=== PATIENT | male | born 1950 | race Caucasian/White ===

== ENCOUNTER 2018-10-25 01:20 | Emergency (ER) | payer OTHER ==
[2018-10-25 01:36] VITALS: PULSE 56; TEMP 98; BMI 40.2
[2018-10-25 02:45] LABS: EPI CELLS 0.3 /HPF (0-5/HPF); HYALINE CASTS 3 /lpf (0-8); URINE APPEARANCE CLEAR; URINE BACTERIA 0.5 /hpf (NEGATIVE); URINE BILIRUBIN NEGATIVE (NEGATIVE); URINE COLOR YELLOW; URINE GLUCOSE (UA) NEGATIVE (NEGATIVE); URINE KETONE NEGATIVE (NEGATIVE); URINE LEUK ESTERASE NEGATIVE (NEGATIVE); URINE NITRITE NEGATIVE (NEGATIVE); URINE PROTEIN NEGATIVE (NEGATIVE); URINE RBC 130 /hpf (0-4); URINE WBC 1 /hpf (0-5)
[2018-10-25 03:05] LABS: BASO % 0.2 % (0-2.0); EOS % 0.5 % (0-4.5); HEMATOCRIT 43.3 % (35.4-49); HEMOGLOBIN 14.5 GM/dL (11.7-16.9); MCH 29.1 pg (25.7-33.7); MCHC 33.5 g/dl (32.0-35.9); MEAN CELL VOLUME 86.8 fl (80-96); MEAN PLT VOLUME 9.2 fl (7.5-11.1); MONO % 3.6 % (3.8-10.2); NEUT % 87.7 % (42.8-82.8); PLATELET COUNT 270 K/MM3 (134-434); RBC 4.99 M/mm3 (4.00-5.60); RDW 14.6 % (11.9-15.9); WHITE BLOOD COUNT 10.1 K/mm3 (4.0-10.0)
[2018-10-25 03:18] LABS: ALBUMIN 3.7 g/dl (3.4-5.0); BILIRUBIN,TOTAL 0.4 mg/dL (0.2-1); BLOOD UREA NITROGEN 21.1 mg/dL (7-18); CALCIUM 8.7 mg/dL (8.5-10.1); CREATININE 1.1 mg/dL (0.55-1.3); POTASSIUM 3.6 mmol/L (3.5-5.1); TOT PROT 7.2 g/dl (6.4-8.2)
[2018-10-25 03:28] VITALS: BP 133/81
--- NOTE | 2018-10-25 03:49 | PDOC ---
Attending Attestation - Resident Resident Name: Iban No - ED Attending Attestation I have performed the following: I have examined & evaluated the patient, The case was reviewed & discussed with the resident, I agree w/resident's findings & plan, Exceptions are as noted - HPI HPI: 10/25/18 03:45 67M denies PMH but has not been evaluated by a physician in decades here with sharp, R sided flank pain, colicky, radiating to groin. No f/c, n/v, cp, sob - Physicial Exam PE: 10/25/18 03:46 NAD, AOx3 Abd soft, nt, nd, no guarding, no rebound Rash slightly to the right of midline, blanching, macular +CVAT on R - Medical Decision Making 10/25/18 03:47 R sided flank pain, colicky, consider nephrolithiasis, less likely gallbladder, liver, appy analgesia, labs, ua f/u spiral ct re-eval dispo per clinical course
--- NOTE | 2018-10-25 03:58 | PDOC ---
History of Present Illness - General Chief Complaint: Back Pain Stated Complaint: PAIN History Source: Patient Exam Limitations: No Limitations - History of Present Illness Initial Comments: 10/25/18 03:53 67 yo male no known medical hx (has not seen a doctor in years) presents to the ED with sudden onset right flank pain this afternoon. Denies trauma, similar pain in the past, N/V/F/C, pain/buring/blood on urination 5 mm mid ureter mild hydro stone Past History - Past Medical History Allergies/Adverse Reactions: Allergies Allergy/AdvReac Type Severity Reaction Status Date / Time No Known Allergies Allergy Verified 10/25/18 01:33 Home Medications: Ambulatory Orders Doxylamine Succinate [Unisom Sleep Aid] 25 mg PO HS 10/25/18 Tamsulosin HCl [Flomax -] 0.4 mg PO DAILY #7 capsule 10/25/18 CVA: No COPD: No - Immunization History Immunization Up to Date: No - Suicide/Smoking/Psychosocial Hx Smoking History: Never smoked Information on smoking cessation initiated: No Hx Alcohol Use: No Drug/Substance Use Hx: No *Physical Exam - Vital Signs Last Vital Signs Temp Pulse Resp BP Pulse Ox 98.0 F 56 L 20 133/81 100 10/25/18 01:28 10/25/18 01:28 10/25/18 01:28 10/25/18 03:28 10/25/18 01:28 ED Treatment Course - LABORATORY CBC & Chemistry Diagram: 10/25/18 02:30 10/25/18 02:30 - ADDITIONAL ORDERS Additional order review: Laboratory Results 10/25/18 10/25/18 02:30 02:30 Sodium 142 Potassium 3.6 Chloride 111 H Carbon Dioxide 24 Anion Gap 8 BUN 21.1 H Creatinine 1.1 Est GFR (CKD-EPI)AfAm 79.52 Est GFR (CKD-EPI)NonAf 68.61 Random Glucose 134 H Calcium 8.7 Total Bilirubin 0.4 AST 25 ALT 26 Alkaline Phosphatase 75 Total Protein 7.2 Albumin 3.7 Urine Color Yellow Urine Appearance Clear Urine pH 6.0 Ur Specific [place] 1.022 Urine Protein Negative Urine Glucose (UA) Negative Urine Ketones Negative Urine Blood 3+ H Urine Nitrite Negative Urine Bilirubin Negative Urine Urobilinogen 1.0 Ur Leukocyte Esterase Negative Urine WBC (Auto) 1 Urine RBC (Auto) 130 Urine Casts (Auto) 3 U Epithel Cells (Auto) 0.3 Urine Bacteria (Auto) 0.5 10/25/18 02:30 RBC 4.99 MCV 86.8 MCHC 33.5 RDW 14.6 MPV 9.2 Neutrophils % 87.7 H Lymphocytes % 8.0 Monocytes % 3.6 L Eosinophils % 0.5 Basophils % 0.2 - RADIOLOGY Radiology Studies Ordered: Category Date Time Status SPIRAL- RENAL-STONE CT [CT] Stat CT Scan 10/25/18 02:26 Taken *DC/Admit/Observation/Transfer Diagnosis at time of Disposition: Urinary tract stone - Discharge Dispostion Disposition: HOME Condition at time of disposition: Stable Decision to Admit order: No - Referrals Referrals: Michael Bradley MD [Staff Physician] - - Patient Instructions Printed Discharge Instructions: Kidney Stones -- Adult Additional Instructions: Please see your Primary Doctor and make an appointment with the Urologist referred to you as soon as possible. Drink a lot of water and use over the counter NSAIDS such as Tylenol, Motrin and Alieve for pain control. Use the medication sent to your pharmacy as directed. Return to the ER for new or concerning symptoms including but not limited to: fevers, inability to eat or drink, pain, inability to urinate, blood in your urine. Thank you - Post Discharge Activity
[2018-10-25 05:14] LABS: URINE CRYSTALS NONE SEEN /hpf
== END 2018-10-25 04:12 | disposition home or self-care (01) ==
LOC: JER 01:20
DX: N20.9 Urinary calculus, unspecified (principal)
CPT/HCPCS: 36415; 74176-TC; 80053; 81003; 85025; 87086; 99283-25

== ENCOUNTER 2019-10-10 20:56 | Inpatient (IN) | payer OTHER ==
--- NOTE | 2019-10-10 21:38 | PDOC ---
History of Present Illness - General Chief Complaint: Syncope/Near Syncope Stated Complaint: SYNCOPE Time Seen by Provider: 10/10/19 21:11 History Source: Patient Exam Limitations: No Limitations - History of Present Illness Initial Comments: 10/10/19 22:11 HPI: This is a 68 y/o male with BPH who has not been to a doctor in years presenting to the ED due to a pre-syncopal episode at home. Per the patient, he got up to go to the window and began shaking, sweating, and then doesn't remember anything else. He called out to his who found him crouching on the floor. He denies LOC. Earlier in the evening he had an episode of urinary incontinence in bed, which has never happened before. He also admits to some dysuria, but denies hematuria. Denies chills/fever, abdominal pain, cough, chest pain, shortness of breath. ROS: GENERAL/CONSTITUTIONAL: No fever/chills. Yes weakness. HEAD, EYES, EARS, NOSE AND THROAT: No change in vision. No ear pain or discharge. No sore throat. CARDIOVASCULAR: No chest pain or shortness of breath. RESPIRATORY: No cough, wheezing GASTROINTESTINAL: No nausea, vomiting, mild diarrhea GENITOURINARY:Yes dysuria, increased frequency, 1 episode of incontinence today. Denies hematuria. MUSCULOSKELETAL: No neck or back pain. SKIN: Erythemetous rash on chest NEUROLOGIC: No headache, vertigo, loss of consciousness, or change in strength/sensation. PMH: BPH PSx: Denied Social Hx: Denied etoh and tobacco Meds: Denied Allergies: KNDA PE: GENERAL: Awake, alert, and fully oriented, in no acute distress. Patient laying in bed with in room, conversational. HEAD: Normocephalic, small amount of dried blood above right eye. No tenderness to palpation. EYES: PERRL, EOMI NECK: Normal ROM, supple, no lymphadenopathy, JVD, or masses LUNGS: Breath sounds equal, clear to auscultation bilaterally. No wheezes, and no crackles HEART: Regular rate and rhythm, normal S1 and S2, no murmurs, rubs or gallops ABDOMEN: Soft, normoactive bowel sounds. No guarding, no rebound. No masses. Mild suprapubic tenderness. EXTREMITIES: Normal range of motion, no edema. NEUROLOGICAL: Cranial nerves II through XII grossly intact. Normal speech, normal gait SKIN: Warm, Dry, normal turgor, no rashes or lesions noted. 10/10/19 22:14 MDM: This is a 68 y/o male with BPH who has not been to a doctor in years presenting to the ED due to a pre-syncopal episode at home. Per the patient, he got up to go to the window and began shaking, sweating, and then doesn't remember anything else. - Patient is unable to give accurate story of what happened, will CT head - Febrile at 102.1, will give 1000mg acetaminophen Cystitis vs pyelonephritis vs sepsis doubt cardiac etiology due to fever and no chest pain, sob - No CVA tenderness, but some suprapubic tenderness - UA, CBC, CMP, EKG, Lactic acid CBC WBC 29.9 K/mm3 (4.0-10.0) H 10/10/19 22:45 RBC 5.44 M/mm3 (4.00-5.60) 10/10/19 22:45 Hgb 15.8 GM/dL (11.7-16.9) 10/10/19 22:45 Hct 47.9 % (35.4-49) 10/10/19 22:45 MCV 88.1 fl (80-96) 10/10/19 22:45 MCH 29.0 pg (25.7-33.7) 10/10/19 22:45 MCHC 32.9 g/dl (32.0-35.9) 10/10/19 22:45 RDW 14.9 % (11.9-15.9) 10/10/19 22:45 Plt Count 258 K/MM3 (134-434) 10/10/19 22:45 MPV 8.9 fl (7.5-11.1) 10/10/19 22:45 Absolute Neuts (auto) 26.5 K/mm3 (1.5-8.0) H 10/10/19 22:45 Total Counted 100 10/10/19 22:45 Neutrophils % 88.4 % (42.8-82.8) H 10/10/19 22:45 Neutrophils % (Manual) 89.0 % (42.8-82.8) H 10/10/19 22:45 Band Neutrophils % 3.0 % 10/10/19 22:45 Lymphocytes % 3.5 % (8-40) L D 10/10/19 22:45 Lymphocytes % (Manual) 5.0 % (8-40) L 10/10/19 22:45 Monocytes % 8.0 % (3.8-10.2) D 10/10/19 22:45 Monocytes % (Manual) 3 % (3.8-10.2) L 10/10/19 22:45 Eosinophils % 0.0 % (0-4.5) D 10/10/19 22:45 Basophils % 0.1 % (0-2.0) 10/10/19 22:45 Nucleated RBC % 0 % (0-0) 10/10/19 22:45 Platelet Estimate Adequate 10/10/19 22:45 Platelet Comment No clumping noted 10/10/19 22:45 Leukocytosis with left shift No anemia CMP Sodium 137 mmol/L (136-145) 10/10/19 22:45 Potassium 3.8 mmol/L (3.5-5.1) 10/10/19 22:45 Chloride 104 mmol/L (98-107) 10/10/19 22:45 Carbon Dioxide 26 mmol/L (21-32) 10/10/19 22:45 Anion Gap 7 MMOL/L (8-16) L 10/10/19 22:45 BUN 21.8 mg/dL (7-18) H 10/10/19 22:45 Creatinine 1.7 mg/dL (0.55-1.3) H 10/10/19 22:45 Est GFR (CKD-EPI)AfAm 46.65 10/10/19 22:45 Est GFR (CKD-EPI)NonAf 40.25 10/10/19 22:45 Random Glucose 109 mg/dL (74-106) H 10/10/19 22:45 Lactic Acid 2.3 mmol/L (0.4-2.0) H* 10/10/19 22:45 Calcium 8.7 mg/dL (8.5-10.1) 10/10/19 22:45 Total Bilirubin 2.4 mg/dL (0.2-1) H 10/10/19 22:45 AST 32 U/L (15-37) 10/10/19 22:45 ALT 36 U/L (13-61) 10/10/19 22:45 Alkaline Phosphatase 95 U/L (45-117) 10/10/19 22:45 Total Protein 7.9 g/dl (6.4-8.2) 10/10/19 22:45 Albumin 3.6 g/dl (3.4-5.0) 10/10/19 22:45 Lactic elevated at 2.3 - 2L LR - UTI suspected as source 1g ceftriaxone - UA with >10,000 bacteria 10/11/19 01:07 - Microblogged symphony - Patient will be admitted to Dr. Muniz's service Past History - Medical History Allergies/Adverse Reactions: Allergies Allergy/AdvReac Type Severity Reaction Status Date / Time No Known Allergies Allergy Verified 10/10/19 21:20 Home Medications: Ambulatory Orders Doxylamine Succinate [Unisom Sleep Aid] 25 mg PO HS 10/25/18 Tamsulosin HCl [Flomax -] 0.4 mg PO DAILY #7 capsule 10/25/18 CVA: No COPD: No - Immunization History Immunization Up to Date: No - Psycho-Social/Smoking History Smoking History: Never smoked Have you smoked in the past 12 months: No Information on smoking cessation initiated: No - Substance Abuse Hx (Audit-C & DAST Scrn) How often the patient has a drink containing alcohol: Never Score: In Men: 4 or > Positive; In Women: 3 or > Positive: 0 Screen Result (Pos requires Nsg. Audit-10AR): Negative In the last yr the pt used illegal drug/Rx for NonMed reason: No Score: Yes response is considered Positive: 0 Screen Result (Positive result requires Nsg. DAST-10): Negative *Physical Exam - Vital Signs Last Vital Signs Temp Pulse Resp BP Pulse Ox 102.1 F H 91 H 20 108/62 96 10/10/19 21:20 10/10/19 21:20 10/10/19 21:20 10/10/19 21:20 10/10/19 21:20 Heart Score/ECG Review - History History: Slightly suspicious - Electrocardiogram EKG: Normal - Age Age: >/= 65 - Risk Factors Based on the list above the patient has:: No risk factors known - ECG Intrepretation Comment:: 10/11/19 04:29 EKG with no signs of ischemia, ST elevations. Sinus rhythm. Vent rate 82 bpm, NC interval 144ms, QRS duration 90ms. QT/QTc 358/418ms. ED Treatment Course - LABORATORY CBC & Chemistry Diagram: 10/10/19 22:45 10/10/19 22:45 Discharge - Discharge Information Problems reviewed: Yes Clinical Impression/Diagnosis: Sepsis Qualifiers: Sepsis type: sepsis due to unspecified organism Sepsis acute organ dysfunction status: unspecified Qualified Code(s): A41.9 - Sepsis, unspecified organism Condition: Guarded - Admission Yes - Follow up/Referral - Patient Discharge Instructions - Post Discharge Activity
[2019-10-10] MEDS ORDERED: ACETAMINOPHEN 325 MG TABLET (FP) PO ONE (22:06)
[2019-10-10] MEDS ORDERED: LACTATED RINGERS SOLUTION 1000 ML INFUS.BAG IV ONE ×2 (22:13→23:35)
--- NOTE | 2019-10-10 23:00 | PDOC ---
Documentation entered by Darling Moreno SCRIBE, acting as scribe for Monica Gardiner MD. Monica Gardiner MD: This documentation has been prepared by the Josh hebert Xhesika, SCRIBE, under my direction and personally reviewed by me in its entirety. I confirm that the documentation accurately reflects all work, treatment, procedures, and medical decision making performed by me. Attending Attestation - Resident Resident Name: NikkieAnette - ED Attending Attestation I have performed the following: I have examined & evaluated the patient, The case was reviewed & discussed with the resident, I agree w/resident's findings & plan, Exceptions are as noted - HPI HPI: 10/10/19 22:47 68 y/o male with a PMH of BPH who presents to the ED s/p episode of AMS at home. Pt states he got up to go to the window, began shaking and sweating. Pt states he does not recall what happened after that. Per , the patient yelled for her and when she went to check on him she found him on the floor on his knees, holding onto a dresser. he denies coughing or chest pain. does state he has had dysuria for a few days. occasional diarreha. otherwise no complaints. does not have a primary doctor. no headache. unsure if he hit his head during fall. denies focal weakness or any other complaints. Allergies: NKDA 10/10/19 22:53 - Physicial Exam PE: 10/10/19 22:55 awake alert right supraorbital rim with small laceration no active bleeding. no bony step off. EOMI, facies symmetric. lungs clear bilat heart rrr no mrg abd soft nt nd no midline spinal tenderness. no cva tenderness. GCS 15. nuero 5/5 all four ext. skin warm and dry . sensation intact. speech clear. - Medical Decision Making 10/10/19 22:56 68 yo M no known pmhx except bph, hereh with episode of AMS, possible syncope unwitnessed fall, rigors and fever. recent urinary sxs. differential syncope, sepsis, fever dysthymia cardiac event. apparent head trauma, head ct r/o ich, labs ekg trop cxr. Heart Score/ECG Review #1 General ECG Interpretation: Sinus Rhythm, Normal Rate (82), Normal Intervals, No acute ischemic changes Discharge - Discharge Information Problems reviewed: Yes Clinical Impression/Diagnosis: Sepsis Qualifiers: Sepsis type: sepsis due to unspecified organism Sepsis acute organ dysfunction status: unspecified Qualified Code(s): A41.9 - Sepsis, unspecified organism Condition: Good Disposition: HOME - Follow up/Referral - Patient Discharge Instructions - Post Discharge Activity
[2019-10-10 23:01] LABS: BASO % 0.1 % (0-2.0); HEMATOCRIT 47.9 % (35.4-49); HEMOGLOBIN 15.8 GM/dL (11.7-16.9); LYMPH % 3.5 % (8-40); MCHC 32.9 g/dl (32.0-35.9); MEAN CELL VOLUME 88.1 fl (80-96); MEAN PLT VOLUME 8.9 fl (7.5-11.1); NEUT % 88.4 % (42.8-82.8); PLATELET COUNT 258 K/MM3 (134-434); RBC 5.44 M/mm3 (4.00-5.60); RDW 14.9 % (11.9-15.9); WHITE BLOOD COUNT 29.9 K/mm3 (4.0-10.0)
[2019-10-10 23:36] LABS: ALBUMIN 3.6 g/dl (3.4-5.0); BILIRUBIN,TOTAL 2.4 mg/dL (0.2-1); BLOOD UREA NITROGEN 21.8 mg/dL (7-18); CALCIUM 8.7 mg/dL (8.5-10.1); CREATININE 1.7 mg/dL (0.55-1.3); POTASSIUM 3.8 mmol/L (3.5-5.1); TOT PROT 7.9 g/dl (6.4-8.2)
[2019-10-10 23:40] LABS: PLATELET ESTIMATE ADEQUATE
[2019-10-11] MEDS ORDERED: ACETAMINOPHEN 325 MG TABLET (FP) ONE (00:29)
[2019-10-11] MEDS ORDERED: CEFTRIAXONE 1,000 MG in DEXTROSE 5%-WATER - 50 ML IVPB ONE (01:02)
--- NOTE | 2019-10-11 01:32 | PN ---
Teaching Attending Note Name of Resident: Sera Good ATTENDING PHYSICIAN STATEMENT I saw and evaluated the patient. I reviewed the resident's note and discussed the case with the resident. I agree with the resident's findings and plan as documented. SUBJECTIVE: Patient is a 68 year old man with a PMH of Right kidney stone (mild hydronep hrosis) and BPH who has not been to a doctor in years presenting to the ER due to a pre-syncopal episode at home. Per the patient, he got up to go to the window and began shaking, sweating, and then doesn't remember anything else. He called out to his who found him crouching on the floor. He denies LOC. Earlier in the evening he had an episode of urinary incontinence in bed, which has never happened before. He also admits to some dysuria, but denies hematuria. Patient denies chest pain, shortness of breath, abdominal pain, headache, palpitations, nausea, vomiting, diarrhea, constipation, frequency, urgency, melena, hematochezia or hematuria. Denies alcohol, tobacco or illicit drug use. No sick contacts or recent travels. Has family history of alcoholism. OBJECTIVE: Alert Vital Signs Period Temp Pulse Resp BP Sys/Castro Pulse Ox Last 24 Hr 102.1 F 91 20 108/62 96 HEENT: No Jaundice, eye redness or discharge, PERRLA, EOMI. Normocephalic, atraumatic. External ears are normal and hearing is grossly intact. No nasal discharge. Neck: Supple, nontender. No palpable adenopathy or thyromegaly. No JVD Chest: Good effort. Clear to auscultation and percussion. Heart: Regular. No S3, rub or murmur Abdomen: Not distended, soft, suprapubic tenderness and no HSM. No rebound or guarding. Normal bowel sounds. Ext: Peripheral pulses intact. No leg edema. Skin: Warm and dry. No petechiae, rash or ecchymosis. Neuro: Alert. Oriented x3. CN 2-12 grossly intact. Sensation grossly intact in all four extremities and DTR are symmetric. Psych: Appropriate mood and affect. Good insight. Home Medications Medication Instructions Recorded Doxylamine Succinate [Unisom Sleep 25 mg PO HS 10/25/18 Aid] Tamsulosin HCl [Flomax -] 0.4 mg PO DAILY #7 capsule 10/25/18 Abnormal Lab Results 10/10/19 10/10/19 10/10/19 22:45 22:45 22:45 WBC 29.9 H Absolute Neuts (auto) 26.5 H Neutrophils % 88.4 H Neutrophils % (Manual) 89.0 H Lymphocytes % 3.5 L D Lymphocytes % (Manual) 5.0 L Monocytes % (Manual) 3 L Anion Gap 7 L BUN 21.8 H Creatinine 1.7 H Random Glucose 109 H Lactic Acid 2.3 H* Total Bilirubin 2.4 H Current Medications Generic Name Dose Route Start Last Admin Trade Name Freq PRN Reason Stop Dose Admin Heparin Sodium (Porcine) 5,000 unit 10/11/19 06:00 Heparin - SQ TID AGUSTIN Piperacillin Sod/Tazobactam 100 mls @ 200 mls/hr 10/11/19 04:40 Sod 4.5 gm/ Dextrose IVPB 10/11/19 05:09 ONCE ONE Protocol Lactated Ringer's 1,000 ml in 1,000 mls @ 125 mls/hr 10/11/19 04:30 Lactated Ringers Solution IV 10/12/19 12:29 ASDIR AGUSTIN Pneumococcal 13-Valent Conj Vacc 0.5 ml 10/11/19 10:00 Prevnar 13 Syringe - IM 10/11/19 10:01 .ONCE ONE ASSESSMENT AND PLAN: 1. Severe sepsis due to UTI - Presyncopal symptoms likely represent toxic metabolic encephalopathy due to sepsis. Got IV Ceftriaxone in the ER and will treat with IV NS according to the sepsis protocol and trend lactic acid. Because of the severity of his symptoms will treat with IV Zosyn pending urine and blood culture results. CXR shows cardiomegaly with no evidence of acute lung disease. No evidence of acute intracranial pathology on noncontrast head CT scan. Elevated bilirubin likely due to sepsis - will monitor. Viral testing for COVID- 19 ordered and patient placed on airborne, droplet and contact isolation. EKG shows NSR at 82/minute and QTc 418, T wave inversion in III, aVF, V1 with no significant ST changes. No old EKG available for comparison. Initial troponin is negative. Will continue comprehensive care for all of patients comorbid conditions including Flomax for BPH. 2. TRISTON May signal ATN due to sepsis. Will get CPK, kidney sonogram, hydrate with IV NS, monitor urine output and consult Nephrology. Avoid nephrotoxic agents such as NSAIDS, aminoglycosides, contrast dyes and certain Alternative medicine products. 3. DVT prophylaxis - Heparin 5000u sq tid. 4. Advance directives - Full code
[2019-10-11] MEDS ORDERED: CEFTRIAXONE 1 GM/50 ML BAG ONE (01:50)
[2019-10-11 02:04] LABS: EPI CELLS 3 /uL (0-25.1); HYALINE CASTS 148 /uL (0-3.1); URINE APPEARANCE CLOUDY; URINE BILIRUBIN 2+ (NEGATIVE); URINE COLOR ORANGE; URINE GLUCOSE (UA) NEGATIVE (NEGATIVE); URINE KETONE NEGATIVE (NEGATIVE); URINE LEUK ESTERASE 2+ (NEGATIVE); URINE NITRITE POSITIVE (NEGATIVE); URINE PROTEIN 1+ (NEGATIVE); URINE WBC 952 /uL (0-25.8)
--- NOTE | 2019-10-11 02:47 | HP ---
CHIEF COMPLAINT: weakness, fall PCP: none HISTORY OF PRESENT ILLNESS: Pt is a 68 y/o male with BPH (on tamsulosin years ago) and hx of nephrolithiasis with hydronephrosis who presents after syncope. Pt reports watching TV in his bedroom around 10pm and felt weak to get out of bed. When he got up, he walked to the window in the living room then felt like he was shaking, and the next thing he recalls is being on the floor yelling for his . He does not recall how he landed on the floor or if he hit his head. EMS was able to help him in a chair before transport. He reports an episode of urinary incontinence in bed just prior, which has never happened before. He denies fever, chills, nausea, vomiting. He reports intermittent diarrhea, but he has not had it in the last day. ER course was notable for: (1) UA -UA +nitrite, +1 blood, +2 leuk esterase, 952 WBC, >10,000 bacteria (2) CT head -no acute pathology (3) 2L IVF Recent Travel: none PAST MEDICAL HISTORY: BPH and nephrolithiasis PAST SURGICAL HISTORY: none Social History: Smoking: denies Alcohol: denies Drugs: denies lives at home with Family History: mother and father- alcoholism Allergies No Known Allergies Allergy (Verified 10/10/19 21:20) HOME MEDICATIONS: none REVIEW OF SYSTEMS see HPI PHYSICAL EXAMINATION Vital Signs - 24 hr 10/10/19 10/11/19 21:20 01:46 Temperature 102.1 F H 102.8 F H Pulse Rate 91 H Pulse Rate [ 79 Apical] Respiratory 20 19 Rate Blood Pressure 108/62 Blood Pressure 135/77 [Left Arm] O2 Sat by Pulse 96 Oximetry (%) GENERAL: Awake, alert, and fully oriented, in no acute distress. HEAD: Normal with no signs of trauma. EYES: Pupils equal, round and reactive to light, extraocular movements intact, conjunctiva clear. EARS, NOSE, THROAT: Ears normal, nares patent, moist mucous membranes. NECK: Normal range of motion. LUNGS: Clear to auscultation bilaterally. No wheezes, and no crackles. HEART: Regular rate and rhythm, no murmur appreciated. ABDOMEN: Soft, suprapubic tenderness to palpation, not distended, normoactive bowel sounds. BACK: No CVA tenderness. UPPER EXTREMITIES: Warm, well-perfused. No peripheral edema. LOWER EXTREMITIES: Warm, well-perfused. No peripheral edema. NEUROLOGICAL: Cranial nerves II-XII intact. Normal speech. PSYCHIATRIC: Cooperative. Good eye contact. Appropriate mood and affect. SKIN: Warm, dry, normal turgor. Laboratory Results - last 24 hr 10/10/19 10/10/19 10/10/19 22:45 22:45 22:45 WBC 29.9 H RBC 5.44 Hgb 15.8 Hct 47.9 MCV 88.1 MCH 29.0 MCHC 32.9 RDW 14.9 Plt Count 258 MPV 8.9 Absolute Neuts (auto) 26.5 H Total Counted 100 Neutrophils % 88.4 H Neutrophils % (Manual) 89.0 H Band Neutrophils % 3.0 Lymphocytes % 3.5 L D Lymphocytes % (Manual) 5.0 L Monocytes % 8.0 D Monocytes % (Manual) 3 L Eosinophils % 0.0 D Basophils % 0.1 Nucleated RBC % 0 Platelet Estimate Adequate Platelet Comment No clumping noted Sodium 137 Potassium 3.8 Chloride 104 Carbon Dioxide 26 Anion Gap 7 L BUN 21.8 H Creatinine 1.7 H Est GFR (CKD-EPI)AfAm 46.65 Est GFR (CKD-EPI)NonAf 40.25 Random Glucose 109 H Lactic Acid 2.3 H* Calcium 8.7 Total Bilirubin 2.4 H AST 32 ALT 36 Alkaline Phosphatase 95 Total Protein 7.9 Albumin 3.6 Urine Color Urine Appearance Urine pH Ur Specific [place] Urine Protein Urine Glucose (UA) Urine Ketones Urine Blood Urine Nitrite Urine Bilirubin Urine Urobilinogen Ur Leukocyte Esterase Urine WBC (Auto) Urine Casts (Auto) U Epithel Cells (Auto) Urine Bacteria (Auto) 10/11/19 00:50 WBC RBC Hgb Hct MCV MCH MCHC RDW Plt Count MPV Absolute Neuts (auto) Total Counted Neutrophils % Neutrophils % (Manual) Band Neutrophils % Lymphocytes % Lymphocytes % (Manual) Monocytes % Monocytes % (Manual) Eosinophils % Basophils % Nucleated RBC % Platelet Estimate Platelet Comment Sodium Potassium Chloride Carbon Dioxide Anion Gap BUN Creatinine Est GFR (CKD-EPI)AfAm Est GFR (CKD-EPI)NonAf Random Glucose Lactic Acid Calcium Total Bilirubin AST ALT Alkaline Phosphatase Total Protein Albumin Urine Color [place] Urine Appearance Cloudy Urine pH 5.0 Ur Specific [place] 1.022 Urine Protein 1+ H Urine Glucose (UA) Negative Urine Ketones Negative Urine Blood 1+ H Urine Nitrite Positive H Urine Bilirubin 2+ H Urine Urobilinogen 1.0 Ur Leukocyte Esterase 2+ H Urine WBC (Auto) 952 Urine Casts (Auto) 148 U Epithel Cells (Auto) 3 Urine Bacteria (Auto) >10,000 ASSESSMENT/PLAN: Pt is a 68 y/o male with BPH (on tamsulosin years ago) and hx of nephrolithiasis with hydronephrosis who presents after syncope. Pt was febrile and hypotensive with leukocytosis and positive UA. He is admitted for sepsis 2/2 acute cystitis. #sepsis 2/2 acute cystitis -leukocytosis 29.9 -lactic acidosis 2.3-->2.3 -UA +nitrite, +1 blood, +2 leuk esterase, 952 WBC, >10,000 bacteria -urine cx pending -given ceftriaxone in ED -start Zosyn 4.5g Q6H to include pseudomonas coverage -continue LR @125mL/hr for 2 bags, and reassess fluid status -trend lactic acid -blood cx pending -ID consult #syncope -most likely 2/2 sepsis, but cannot r/o cardiac causes, especially since pt does not see a physician regularly -CT head shows encephalomalacia in left frontal lobe, most likely old infarct; old lacunar infarcts in right basal ganglia; patchy low-attenuation in white matter possibly from microvascular ischemic changes, but MRI should be considered -consider echo -consider cardiology consult -lipid panel -A1C -consider TSH for possible arrhythmia #TRISTON -likely pre-renal from sepsis, hx of nephrolithiasis -Cr 1.7 -continue IVF -renal U/S -avoid nephrotoxic agents -nephrology consult #hyperbilirubinemia -likely from sepsis -tbili 2.4 -trend labs, consider liver U/S if labs do not improve DVT Ppx heparin 5,000 TID FEN LR 125mL/hr monitor Cr regular diet dispo tele FULL CODE Visit type - Medication Review Med list reviewed for High Risk Meds patients 65 and older: Yes - Emergency Visit Emergency Visit: Yes ED Registration Date: 10/11/19 Care time: The patient presented to the Emergency Department on the above date and was hospitalized for further evaluation of their emergent condition. - New Patient This patient is new to me today: Yes Date on this admission: 10/11/19 - Critical Care Critical Care patient: No ATTENDING PHYSICIAN STATEMENT I saw and evaluated the patient. I reviewed the resident's note and discussed the case with the resident. I agree with the resident's findings and plan as documented. SUBJECTIVE: OBJECTIVE: ASSESSMENT AND PLAN:
[2019-10-11 02:50] LABS: URINE RBC 5 /uL (0-23.9)
[2019-10-11 04:40] VITALS: BMI 29.0
[2019-10-11] MEDS ORDERED: PIPERACILLIN/TAZOB 4.5 GM 4.5 GM in DEXTROSE 5%-WATER 100 ML IVPB ONE (04:40)
[2019-10-11] MEDS ORDERED: PIPERACILLIN/TAZOBACTAM 4.5 GM VIAL IVPB ONE (05:09)
[2019-10-11] MEDS ORDERED: DEXTROSE 5%-WATER 100 ML IVPB ONE (05:09)
[2019-10-11] MEDS: LACTATED RINGERS SOLUTION 1,000 ML/1,000 ML INFUS.BAG IV SCH ×2 (05:36→16:02)
[2019-10-11] MEDS: HEPARIN NA (PORCINE) 5,000 UNITS/ML 1ML VIAL SQ SCH ×3 (05:37→21:58)
[2019-10-11 07:26] LABS: BASO % 0.1 % (0-2.0); HEMATOCRIT 43.8 % (35.4-49); HEMOGLOBIN 14.3 GM/dL (11.7-16.9); LYMPH % 5.4 % (8-40); MCH 29.1 pg (25.7-33.7); MCHC 32.8 g/dl (32.0-35.9); MEAN CELL VOLUME 88.9 fl (80-96); MEAN PLT VOLUME 9.2 fl (7.5-11.1); MONO % 5.2 % (3.8-10.2); NEUT % 89.3 % (42.8-82.8); PLATELET COUNT 205 K/MM3 (134-434); RBC 4.92 M/mm3 (4.00-5.60); WHITE BLOOD COUNT 24.2 K/mm3 (4.0-10.0)
--- NOTE | 2019-10-11 07:45 | PN ---
Progress Note, Physician Chief Complaint: Seen and examined in bed. febrile to 102.3. States he feels weak. BCx/Ucx pending. On abx. COVID pending but low suspicion History of Present Illness: Pt is a 68 y/o male with BPH (on tamsulosin years ago) and hx of nephrolithiasis with hydronephrosis who presents after syncope. Pt was febrile and hypotensive with leukocytosis and positive UA. He is admitted for sepsis 2/2 acute cystitis. - Current Medication List Current Medications: Active Medications Heparin Sodium (Porcine) (Heparin -) 5,000 unit SQ TID [facility] Last Admin: 10/11/19 05:37 Dose: 5,000 unit Documented by: Lactated Ringer's (Lactated Ringers Solution) 1,000 ml in 1,000 mls @ 125 mls/hr IV ASDIR [facility] Stop: 10/12/19 12:29 Last Admin: 10/11/19 05:36 Dose: 125 mls/hr Documented by: Pneumococcal 13-Valent Conj Vacc (Prevnar 13 Syringe -) 0.5 ml IM .ONCE ONE Stop: 10/11/19 10:01 - Objective Vital Signs: Vital Signs Temperature 100.7 F H 10/11/19 03:20 Pulse Rate 78 10/11/19 03:20 Respiratory Rate 19 10/11/19 03:20 Blood Pressure 130/78 10/11/19 03:20 O2 Sat by Pulse Oximetry (%) 98 10/11/19 03:20 Constitutional: Yes: Well Nourished, No Distress, Calm Eyes: Yes: WNL, Conjunctiva Clear, EOM Intact HENT: Yes: WNL, Atraumatic, Normocephalic Neck: Yes: WNL, Supple, Trachea Midline Cardiovascular: Yes: WNL, Regular Rate and Rhythm Respiratory: Yes: WNL, Regular, CTA Bilaterally Gastrointestinal: Yes: WNL, Normal Bowel Sounds ...Rectal Exam: Yes: Deferred Genitourinary: Yes: WNL Breast(s): Yes: WNL Musculoskeletal: Yes: WNL Extremities: Yes: WNL Edema: No Peripheral Pulses WNL: Yes Peripheral Pulses: Left Radial: 2+, Right Radial: 2+, Left Doralis Pedis: 2+, Right Dorsalis Pedis: 2+, Left Femoral: 2+, Right Femoral: 2+ Integumentary: Yes: WNL Neurological: Yes: WNL, Alert, Oriented ...Motor Strength: WNL Psychiatric: Yes: WNL, Alert, Oriented Labs: CBC, BMP 10/11/19 06:05 - ....Imaging Cat Scan: Report Reviewed (HCT chronic lacunar infarct) Ultrasound: Report Reviewed (Renal US: renal US unremarkable Carotid:small to moderate plaque RCA) Problem List - Problems (1) BPH (benign prostatic hyperplasia) Assessment/Plan: took flomax yaers ago now with UTI, c/o urinary frequency/dysurai at home will restart flomax and monitor Ucx Pending Code(s): N40.0 - BENIGN PROSTATIC HYPERPLASIA WITHOUT LOWER URINRY TRACT SYMP (2) Prophylactic measure Assessment/Plan: FEN Fluids: decreased PO intake, febrile. IVF @ 125cc/hr Electrolytes:monitor & replete as needed Nutrition: diabetic diet DVT moderate risk sq heparin Dispo Maintain as inpatient full code discharge planning Code(s): Z29.9 - ENCOUNTER FOR PROPHYLACTIC MEASURES, UNSPECIFIED (3) Suspected COVID-19 virus infection Assessment/Plan: COVID Suspicion low On RA strict airborne/droplet precautions until resulted Code(s): Z20.828 - CONTACT W AND EXPOSURE TO OTH VIRAL COMMUNICABLE DISEASES (4) Sepsis Assessment/Plan: +UTI, febrile, WBC 24, LA 2.3 CXR with no infiltrates started on zoysn IVF COVID pending ID to see trend wbc/LA Code(s): A41.9 - SEPSIS, UNSPECIFIED ORGANISM Qualifiers: Sepsis type: sepsis due to unspecified organism Sepsis acute organ d ysfunction status: unspecified Qualified Code(s): A41.9 - Sepsis, unspecified organism (5) Urinary tract stone Assessment/Plan: hs of neohroliathiaslsis Renal US without acute pathology Code(s): N20.9 - URINARY CALCULUS, UNSPECIFIED Qualifiers: Urinary calculus location: ureter Qualified Code(s): N20.1 - Calculus of ureter (6) Syncope and collapse Assessment/Plan: TTE pending Carotid dopplers noted cardiology consultation appreciated maintain on tele Code(s): R55 - SYNCOPE AND COLLAPSE (7) TRISTON (acute kidney injury) Assessment/Plan: Cr 1.7 on admission now 1.4 c/w IVF urine lytes pending avoid nephrotoxic agents abx for UTI nephrology to see c/w abx renal US unremarkable Code(s): N17.9 - ACUTE KIDNEY FAILURE, UNSPECIFIED (8) Leukocytosis Assessment/Plan: WBC 24, febrile UTI+ c/w abx trylenol prn, avoid NSAIDs given TRISTON continue to trend Code(s): D72.829 - ELEVATED WHITE BLOOD CELL COUNT, UNSPECIFIED (9) Hyperbilirubinemia Assessment/Plan: Tbil 2.4 most likely r/t sepsis/infection ast/alt nml if does not trend down will consult GI and get abd US Code(s): E80.6 - OTHER DISORDERS OF BILIRUBIN METABOLISM (10) Lactic acid acidosis Assessment/Plan: LA 2.3 IVF given c/t trend Code(s): E87.2 - ACIDOSIS (11) Carotid stenosis Assessment/Plan: syncopal episode with near collapse small to moderate plaque to RCA correlation with CTA when Cr normalizes Code(s): I65.29 - OCCLUSION AND STENOSIS OF UNSPECIFIED CAROTID ARTERY Visit type - Emergency Visit Emergency Visit: Yes ED Registration Date: 10/11/19 Care time: The patient presented to the Emergency Department on the above date and was hospitalized for further evaluation of their emergent condition. - New Patient This patient is new to me today: Yes Date on this admission: 10/11/19 - Critical Care Critical Care patient: No - Discharge Referral Referred to [facility] Med P.C[facility] No - Medication Review Med list reviewed for High Risk Meds patients 65 and older: Yes
[2019-10-11 07:56] LABS: ALBUMIN 3.3 g/dl (3.4-5.0); BILIRUBIN,TOTAL 2.4 mg/dL (0.2-1); BLOOD UREA NITROGEN 22.1 mg/dL (7-18); CALCIUM 8.6 mg/dL (8.5-10.1); CREATININE 1.4 mg/dL (0.55-1.3); MAGNESIUM 1.9 mg/dL (1.8-2.4); POTASSIUM 3.5 mmol/L (3.5-5.1); TOT PROT 7.2 g/dl (6.4-8.2)
[2019-10-11] MEDS ORDERED: POTASSIUM CHLORIDE TABS 20 MEQ TABLET.ER (FP) PO ONE (08:05)
--- NOTE | 2019-10-11 08:51 | CON.CARD ---
Consult Consult Specialty:: Cardiology - History of Present Illness History of Present Illness: Pt is a 68 y/o male with BPH (on tamsulosin years ago) and hx of nephrolithiasis with hydronephrosis who presents after syncope. Pt reports watching TV in his bedroom around 10pm and felt weak to get out of bed. When he got up, he walked to the window in the living room then felt like he was shaking, and the next thing he recalls is being on the floor yelling for his . He does not recall how he landed on the floor or if he hit his head. EMS was able to help him in a chair before transport. He reports an episode of urinary incontinence in bed just prior, which has never happened before. He denies fever, chills, nausea, vomiting. He reports intermittent diarrhea, but he has not had it in the last day. - History Source History Provided By: Patient, Medical Record - Alcohol/Substance Use Hx Alcohol Use: No - Smoking History Smoking history: Never smoked Have you smoked in the past 12 months: No Home Medications - Allergies Allergies/Adverse Reactions: Allergies Allergy/AdvReac Type Severity Reaction Status Date / Time No Known Allergies Allergy Verified 10/10/19 21:20 Review of Systems - Review of Systems Constitutional: reports: No Symptoms Eyes: reports: No Symptoms HENT: reports: No Symptoms Neck: reports: No Symptoms Cardiovascular: reports: No Symptoms Gastrointestinal: reports: No Symptoms Genitourinary: reports: No Symptoms Breasts: reports: No Symptoms Reported Musculoskeletal: reports: No Symptoms Integumentary: reports: No Symptoms Neurological: reports: Change in LOC, Syncope Endocrine: reports: No Symptoms Hematology/Lymphatic: reports: No Symptoms Psychiatric: reports: No Symptoms Vital Signs: Vital Signs Temperature 99.8 F H 10/11/19 04:15 Pulse Rate 69 10/11/19 04:15 Respiratory Rate 18 10/11/19 04:15 Blood Pressure 141/70 10/11/19 04:15 O2 Sat by Pulse Oximetry (%) 98 10/11/19 04:15 Constitutional: Yes: Well Nourished, No Distress, Calm Eyes: Yes: WNL, Conjunctiva Clear, EOM Intact HENT: Yes: WNL, Atraumatic, Normocephalic Neck: Yes: WNL, Supple, Trachea Midline Respiratory: Yes: WNL, Regular, CTA Bilaterally Gastrointestinal: Yes: WNL, Normal Bowel Sounds Renal/: Yes: WNL Cardiovascular: Yes: WNL, Regular Rate and Rhythm Musculoskeletal: Yes: WNL Extremities: Yes: WNL Integumentary: Yes: WNL Neurological: Yes: WNL, Alert, Oriented ...Motor Strength: WNL Psychiatric: Yes: WNL, Alert, Oriented - Other Data Labs, Other Data: CBC, BMP 10/11/19 06:05 10/11/19 06:05 Imaging - Results Chest X-ray: Image Reviewed (wnl) EKG: Image Reviewed (sr wnl) Other: Report Reviewed (carotid duplex R common carotid 50-70% stenosis) Problem List - Problems (1) TRISTON (acute kidney injury) Code(s): N17.9 - ACUTE KIDNEY FAILURE, UNSPECIFIED (2) BPH (benign prostatic hyperplasia) Code(s): N40.0 - BENIGN PROSTATIC HYPERPLASIA WITHOUT LOWER URINRY TRACT SYMP (3) Carotid stenosis Code(s): I65.29 - OCCLUSION AND STENOSIS OF UNSPECIFIED CAROTID ARTERY (4) Hyperbilirubinemia Code(s): E80.6 - OTHER DISORDERS OF BILIRUBIN METABOLISM (5) Lactic acid acidosis Code(s): E87.2 - ACIDOSIS (6) Leukocytosis Code(s): D72.829 - ELEVATED WHITE BLOOD CELL COUNT, UNSPECIFIED (7) Prophylactic measure Code(s): Z29.9 - ENCOUNTER FOR PROPHYLACTIC MEASURES, UNSPECIFIED (8) Sepsis Code(s): A41.9 - SEPSIS, UNSPECIFIED ORGANISM Qualifiers: Sepsis type: sepsis due to unspecified organism Sepsis acute organ dysfunction status: unspecified Qualified Code(s): A41.9 - Sepsis, unspecified organism (9) Suspected COVID-19 virus infection Code(s): Z20.828 - CONTACT W AND EXPOSURE TO OTH VIRAL COMMUNICABLE DISEASES (10) Syncope and collapse Code(s): R55 - SYNCOPE AND COLLAPSE (11) Urinary tract stone Code(s): N20.9 - URINARY CALCULUS, UNSPECIFIED Qualifiers: Urinary calculus location: ureter Qualified Code(s): N20.1 - Calculus of ureter Assessment/Plan changes in MS denies syncope urosepsis leukocytosis lactic acidosis Plan telemetry echo ce serial ekg Cardiac w/u if not done recently when stable
[2019-10-11] MEDS ORDERED: ACETAMINOPHEN 500 MG TABLET (FP) PO ONE (09:15)
[2019-10-11 10:35] LABS: ANISOCYTOSIS 0; MACROCYTOSIS 0; PLATELET ESTIMATE NORMAL
--- NOTE | 2019-10-11 10:53 | PN ---
Progress Note (short form) - Note Progress Note: ID CONSULT DICTATED UTI R/O SEPSIS SECONDARY TO UTI LACTIC ACIDOSIS LEUKOCYTOSIS NEAR SYNCOPE AWAIT SEPSIS WORKUP EMPIRIC ZOSYN
--- NOTE | 2019-10-11 11:32 | CONS ---
DATE OF CONSULTATION: DATE OF DICTATION: 10/11/2019 CHIEF COMPLAINT: [age]old male, history of BPH and nephrolithiasis, evaluated for possible urosepsis. HISTORY OF PRESENT ILLNESS: The patient reports that he was watching TV in his bedroom late in the evening prior to admission. He felt weak. He got up out of bed, walked to the window and began to have shaking. The next thing he recalls he was on the floor calling for his . He does not recall how he landed on the floor. He denies any head trauma or loss of consciousness. EMS was called and was able to put him in a chair before transport. He had had an episode of urinary incontinence in bed prior to this episode, which was new. He denied any recent febrile illness, chills. No dysuria or hematuria, nausea or vomiting. According to the notes, he has not been under the care of other physician for many years. He presented to the emergency room where he was evaluated. His course has been complicated by high-grade fever and elevated white blood cell count. At the present time he is awake. He reports urinary incontinence. He denies any dysuria or hematuria. No complaints of suprapubic or flank pain. PAST MEDICAL HISTORY: Positive for BPH, nephrolithiasis, hypertension. ALLERGIES: No known allergies. MEDICATIONS: Include Zosyn, heparin, Tylenol. SOCIAL HISTORY: He resides at home with his significant other. Nonsmoker, nondrinker. REVIEW OF SYSTEMS: Neurologic: As per HPI. Cardiac: Negative chest pain or palpitations. Respiratory: Negative cough or sputum production. Gastrointestinal: Negative vomiting or diarrhea. Genitourinary: As per HPI. LABORATORY DATA: White blood cell count 29.9, 89 neutrophils, 3 bands, 3 lymphocytes, 8 monocytes. Hematocrit 47.9. Platelets 258. Creatinine 1.4. Urinalysis: White cells 952. CAT scan of the head negative for acute infarct or bleed. Chest x-ray negative. Liver enzymes normal. Blood and urine cultures pending. Lactic acid 2.3. PHYSICAL EXAMINATION: General: He is awake. He is in no acute distress. Vital Signs: Temperature 102.3, blood pressure 153/77, pulse 90, regular. Respirations 18 per minute. HEENT: Sclerae are anicteric. Cardiovascular: Heart sounds S1, S2. Lungs: Clear. Abdomen: Soft, nontender. No suprapubic tenderness. Extremities: Negative for edema. IMPRESSION: 1. Urinary tract infection, rule out sepsis secondary to UTI. 2. Lactic acidosis. 3. Marked leukocytosis. 4. Near-syncopal episode. Await sepsis workup. Empiric antibiotic coverage with Zosyn pending cultures. Further recommendations pending culture results. Cardiology evaluation. Thank you for the kind referral. ABILIO OVIEDO M.D. [id number]
[2019-10-11] MEDS: TAMSULOSIN HCL 0.4 MG CAP PO SCH (12:01)
--- NOTE | 2019-10-11 14:04 | CON.NEP ---
Consult Consult Specialty:: nephrology - History of Present Illness Chief Complaint: difficulty urinating History of Present Illness: Pt is a 68 y/o male with BPH (on tamsulosin years ago) and hx of nephrolithiasis with hydronephrosis who presents after syncope. Pt reports watching TV in his bedroom around 10pm and felt weak to get out of bed. When he got up, he walked to the window in the living room then felt like he was shaking, and the next thing he recalls is being on the floor yelling for his . He does not recall how he landed on the floor or if he hit his head. EMS was able to help him in a chair before transport. He reports an episode of urinary incontinence in bed just prior, which has never happened before. He denies fever, chills, nausea, vomiting. He reports intermittent diarrhea, but he has not had it in the last day. I awakened patient and he only complained of some difficulty urinating. he was well otherwise - History Source History Provided By: Patient, Medical Record Limitations to Obtaining History: Clinical Condition - Alcohol/Substance Use Hx Alcohol Use: No - Smoking History Smoking history: Never smoked Have you smoked in the past 12 months: No Home Medications - Allergies Allergies/Adverse Reactions: Allergies Allergy/AdvReac Type Severity Reaction Status Date / Time No Known Allergies Allergy Verified 10/10/19 21:20 Review of Systems - Review of Systems Constitutional: reports: Weakness Eyes: reports: No Symptoms HENT: reports: No Symptoms Neck: reports: No Symptoms Cardiovascular: reports: No Symptoms Respiratory: reports: No Symptoms Gastrointestinal: reports: No Symptoms Genitourinary: reports: Incontinence Breasts: reports: No Symptoms Reported Musculoskeletal: reports: No Symptoms Integumentary: reports: No Symptoms Neurological: reports: Change in LOC Endocrine: reports: No Symptoms Hematology/Lymphatic: reports: No Symptoms Nephrology Consult - Height Height: 6 ft 2 in - Weight Weight: 226 lb 9.6 oz - BMI Body Mass Index (BMI): 29.0 - Lab Results CBC,BMP: CBC, BMP 10/11/19 06:05 10/11/19 06:05 Anion Gap: Anion Gap Anion Gap 9 MMOL/L (8-16) 10/11/19 06:05 - Imaging Chest X-ray: Report Reviewed (no acute chest) - Physical Examination Vital Signs: Vital Signs Temperature 100 F H 10/11/19 11:30 Pulse Rate 90 10/11/19 09:15 Respiratory Rate 18 10/11/19 09:15 Blood Pressure 153/77 10/11/19 09:15 O2 Sat by Pulse Oximetry (%) 98 10/11/19 09:15 Constitutional: Yes: Well Nourished, No Distress, Calm Eyes: Yes: Conjunctiva Clear, EOM Intact HENT: Yes: Atraumatic, Normocephalic Neck: Yes: Supple, Trachea Midline Cardiovascular: Yes: Regular Rate and Rhythm Respiratory: Yes: Regular, CTA Bilaterally Gastrointestinal: Yes: Normal Bowel Sounds Renal/: Yes: WNL Musculoskeletal: Yes: WNL Extremities: Yes: WNL Wound/Incision: Yes: Well Approximated Neurological: Yes: Alert, Oriented Psychiatric: Yes: Alert, Oriented Assessment/Plan IMPRESSION TRISTON improved probable UTI despite low colony count h/o nephrolithiasis renal sono essentially normal PLAN continue hydration obtain urine sodium and creatinine- pending continue antibiotics monitor renal function avoid nephrotoxins and hypotension MV
[2019-10-11 15:40] LABS: HEMATOCRIT 43.4 % (35.4-49); HEMOGLOBIN 14.2 GM/dL (11.7-16.9); MCH 29.1 pg (25.7-33.7); MCHC 32.7 g/dl (32.0-35.9); MEAN CELL VOLUME 89.1 fl (80-96); MEAN PLT VOLUME 9.4 fl (7.5-11.1); PLATELET COUNT 164 K/MM3 (134-434); RBC 4.87 M/mm3 (4.00-5.60); RDW 14.9 % (11.9-15.9)
[2019-10-11] MEDS: ACETAMINOPHEN 325 MG TABLET (FP) PO PRN ×2 (16:06→22:54)
[2019-10-11 16:20] LABS: ANION GAP 6 MMOL/L (8-16); BLOOD UREA NITROGEN 21.1 mg/dL (7-18); CALCIUM 8.8 mg/dL (8.5-10.1); CHLORIDE 106 mmol/L (98-107); CO2 26 mmol/L (21-32); CREATININE 1.5 mg/dL (0.55-1.3); GLUCOSE,RANDOM 99 mg/dL (74-106); POTASSIUM 4.1 mmol/L (3.5-5.1); SODIUM 138 mmol/L (136-145)
[2019-10-11] MEDS ORDERED: PIPERACILLIN/TAZOBACTAM 3.375 GM VIAL IVPB ONE (18:02)
[2019-10-11] MEDS ORDERED: DEXTROSE 5%-WATER - 50 ML IVPB ONE (18:02)
[2019-10-11] MEDS: PIPERACILLIN/TAZOB 3.375 GM 3.375 GM in DEXTROSE 5%-WATER - 50 ML IVPB SCH (18:35)
[2019-10-12] MEDS: LACTATED RINGERS SOLUTION 1,000 ML/1,000 ML INFUS.BAG IV SCH ×3 (01:17→09:59)
[2019-10-12] MEDS: MELATONIN 5 MG TABLETS PO PRN ×2 (01:18→22:46)
[2019-10-12] MEDS ORDERED: DEXTROSE 5%-WATER - 50 ML IVPB ONE ×3 (01:19→17:58)
[2019-10-12] MEDS ORDERED: PIPERACILLIN/TAZOBACTAM 3.375 GM VIAL IVPB ONE ×3 (01:19→17:58)
[2019-10-12] MEDS: PIPERACILLIN/TAZOB 3.375 GM 3.375 GM in DEXTROSE 5%-WATER - 50 ML IVPB SCH ×3 (01:37→18:00)
[2019-10-12] MEDS: HEPARIN NA (PORCINE) 5,000 UNITS/ML 1ML VIAL SQ SCH ×3 (05:27→21:09)
--- NOTE | 2019-10-12 07:22 | PN ---
Progress Note, Physician Chief Complaint: Seen and examined in bed. febrile overnight to 100.3. C/o urinary incontinence.BCx/Ucx with LFNB-speciation pending. On zaoyn-ID following. COVID still pending but low suspicion History of Present Illness: Pt is a 68 y/o male with BPH (on tamsulosin years ago) and hx of nephrolithiasis with hydronephrosis who presents after syncope. Pt was febrile and hypotensive with leukocytosis and positive UA. He is admitted for sepsis 2/2 acute cystitis. - Current Medication List Current Medications: Active Medications Acetaminophen (Tylenol -) 650 mg PO Q6H PRN PRN Reason: PAIN LEVEL 4 - 6 Last Admin: 10/11/19 22:54 Dose: 650 mg Documented by: Heparin Sodium (Porcine) (Heparin -) 5,000 unit SQ TID [facility] Last Admin: 10/12/19 05:27 Dose: 5,000 unit Documented by: Lactated Ringer's (Lactated Ringers Solution) 1,000 ml in 1,000 mls @ 125 mls/hr IV ASDIR [facility] Stop: 10/13/19 12:29 Last Admin: 10/12/19 05:36 Dose: Not Given Documented by: Piperacillin Sod/Tazobactam (Sod 3.375 gm/ Dextrose) 50 mls @ 100 mls/hr IVPB Q8H-IV [facility]; Protocol Last Admin: 10/12/19 01:37 Dose: 100 mls/hr Documented by: Melatonin (Melatonin) 5 mg PO HS PRN PRN Reason: INSOMNIA Last Admin: 10/12/19 01:18 Dose: 5 mg Documented by: Pneumococcal 13-Valent Conj Vacc (Prevnar 13 Syringe -) 0.5 ml IM .ONCE ONE Stop: 10/11/19 10:01 Tamsulosin HCl (Flomax -) 0.4 mg PO DAILY@0830 [facility] Last Admin: 10/11/19 12:01 Dose: 0.4 mg Documented by: - Objective Vital Signs: Vital Signs Temperature 99.5 F 10/12/19 02:00 Pulse Rate 80 10/12/19 02:00 Respiratory Rate 18 10/12/19 02:00 Blood Pressure 122/64 10/12/19 02:00 O2 Sat by Pulse Oximetry (%) 94 L 10/12/19 02:00 Additional Findings/Remarks: Constitutional: Yes: Well Nourished, No Distress, Calm Eyes: Yes: WNL, Conjunctiva Clear, EOM Intact HENT: Yes: WNL, Atraumatic, Normocephalic Neck: Yes: WNL, Supple, Trachea Midline Cardiovascular: Yes: WNL, Regular Rate and Rhythm Respiratory: Yes: WNL, Regular, CTA Bilaterally Gastrointestinal: Yes: WNL, Normal Bowel Sounds ...Rectal Exam: Yes: Deferred Genitourinary: Yes: Incontinence,dysuria Breast(s): Yes: WNL Musculoskeletal: Yes: WNL Extremities: Yes: WNL Edema: No Peripheral Pulses WNL: Yes Peripheral Pulses: Left Radial: 2+, Right Radial: 2+, Left Doralis Pedis: 2+, Right Dorsalis Pedis: 2+, Left Femoral: 2+, Right Femoral: 2+ Integumentary: Yes: WNL Neurological: Yes: WNL, Alert, Oriented ...Motor Strength: WNL Psychiatric: Yes: WNL, Alert, Oriented Labs: CBC, BMP 10/11/19 15:20 10/11/19 15:20 - ....Imaging Cat Scan: Report Reviewed Ultrasound: Report Reviewed Problem List - Problems (1) BPH (benign prostatic hyperplasia) Assessment/Plan: c/w flomax Ucx with LFNB Code(s): N40.0 - BENIGN PROSTATIC HYPERPLASIA WITHOUT LOWER URINRY TRACT SYMP (2) Prophylactic measure Assessment/Plan: FEN Fluids: decreased PO intake, febrile. c/w IVF @ 100c/hr Electrolytes:monitor & replete as needed Nutrition: diabetic diet DVT moderate risk sq heparin Dispo Maintain as inpatient full code discharge planning Code(s): Z29.9 - ENCOUNTER FOR PROPHYLACTIC MEASURES, UNSPECIFIED (3) Suspected COVID-19 virus infection Assessment/Plan: COVID Suspicion low On RA strict airborne/droplet precautions until resulted Code(s): Z20.828 - CONTACT W AND EXPOSURE TO OTH VIRAL COMMUNICABLE DISEASES (4) Sepsis Assessment/Plan: +UTI, febrile 100.3, WBC 16, LA 1.4 from 2.3 BCx/Ucx + CXR with no infiltrates c/w zoysn c/w IVF COVID still pending ID following Code(s): A41.9 - SEPSIS, UNSPECIFIED ORGANISM Qualifiers: Sepsis type: sepsis due to unspecified organism Sepsis acute organ dysfunction status: unspecified Qualified Code(s): A41.9 - Sepsis, unspecified organism (5) Urinary tract stone Assessment/Plan: hs of neohroliathiaslsis Renal US without acute pathology Code(s): N20.9 - URINARY CALCULUS, UNSPECIFIED Qualifiers: Urinary calculus location: ureter Qualified Code(s): N20.1 - Calculus of ureter (6) Syncope and collapse Assessment/Plan: TTE pending Carotid dopplers noted cardiology consultation appreciated maintain on tele Code(s): R55 - SYNCOPE AND COLLAPSE (7) TRISTON (acute kidney injury) Assessment/Plan: resolving with IVF/Abx Cr 1.7 on admission now 1.3 c/w IVF FeNa 1.02 avoid nephrotoxic agents abx for UTI nephrology following c/w abx renal US unremarkable Code(s): N17.9 - ACUTE KIDNEY FAILURE, UNSPECIFIED (8) Leukocytosis Assessment/Plan: WBC 16, Tmax overnight 100.3 UTI+ c/w abx trylenol prn, avoid NSAIDs given TRISTON continue to trend Code(s): D72.829 - ELEVATED WHITE BLOOD CELL COUNT, UNSPECIFIED (9) Hyperbilirubinemia Assessment/Plan: resolving Tbil 1.8 from 2.4 most likely r/t sepsis/infection ast/alt nml c/tt trend Code(s): E80.6 - OTHER DISORDERS OF BILIRUBIN METABOLISM (10) Lactic acid acidosis Assessment/Plan: resolving LA 1.4 from 2.3 IVF given c/t trend Code(s): E87.2 - ACIDOSIS (11) Carotid stenosis Assessment/Plan: syncopal episode with near collapse small to moderate plaque to RCA correlation with CTA when Cr normalizes Code(s): I65.29 - OCCLUSION AND STENOSIS OF UNSPECIFIED CAROTID ARTERY (12) Incontinence of urine Assessment/Plan: c/o incontinence/urgency on flomax bladder scan to assess PVR If no significant PVR would try myrbetriq Code(s): R32 - UNSPECIFIED URINARY INCONTINENCE Visit type - Emergency Visit Emergency Visit: Yes ED Registration Date: 10/11/19 Care time: The patient presented to the Emergency Department on the above date and was hospitalized for further evaluation of their emergent condition. - New Patient This patient is new to me today: No - Critical Care Critical Care patient: No - Discharge Referral Referred to [facility] Med [facility] No - Medication Review Med list reviewed for High Risk Meds patients 65 and older: Yes
[2019-10-12 07:46] LABS: BASO % 0.2 % (0-2.0); EOS % 0.4 % (0-4.5); HEMATOCRIT 39.6 % (35.4-49); HEMOGLOBIN 12.7 GM/dL (11.7-16.9); LYMPH % 6.1 % (8-40); MCH 28.6 pg (25.7-33.7); MCHC 32.2 g/dl (32.0-35.9); MEAN CELL VOLUME 88.9 fl (80-96); MEAN PLT VOLUME 9.4 fl (7.5-11.1); MONO % 6.2 % (3.8-10.2); NEUT % 87.1 % (42.8-82.8); PLATELET COUNT 178 K/MM3 (134-434); RBC 4.45 M/mm3 (4.00-5.60); RDW 14.8 % (11.9-15.9); WHITE BLOOD COUNT 16.6 K/mm3 (4.0-10.0)
[2019-10-12 08:02] LABS: ALBUMIN 2.8 g/dl (3.4-5.0); ALK PHOS 81 U/L (45-117); ANION GAP 6 MMOL/L (8-16); BILIRUBIN,TOTAL 1.8 mg/dL (0.2-1); BLOOD UREA NITROGEN 19.4 mg/dL (7-18); CALCIUM 8.1 mg/dL (8.5-10.1); CHLORIDE 107 mmol/L (98-107); CO2 27 mmol/L (21-32); CREATININE 1.3 mg/dL (0.55-1.3); GLUCOSE,RANDOM 90 mg/dL (74-106); MAGNESIUM 2.1 mg/dL (1.8-2.4); POTASSIUM 3.8 mmol/L (3.5-5.1); SGOT/AST 21 U/L (15-37); SGPT/ALT 27 U/L (13-61); SODIUM 140 mmol/L (136-145); TOT PROT 6.2 g/dl (6.4-8.2)
--- NOTE | 2019-10-12 08:38 | PN ---
Progress Note, Physician History of Present Illness: Pt is a 68 y/o male with BPH (on tamsulosin years ago) and hx of nephrolithiasis with hydronephrosis who presents after syncope. Pt was febrile and hypotensive with leukocytosis and positive UA. He is admitted for sepsis 2/2 acute cystitis. - Current Medication List Current Medications: Active Medications Acetaminophen (Tylenol -) 650 mg PO Q6H PRN PRN Reason: PAIN LEVEL 4 - 6 Last Admin: 10/11/19 22:54 Dose: 650 mg Documented by: Heparin Sodium (Porcine) (Heparin -) 5,000 unit SQ TID [facility] Last Admin: 10/12/19 05:27 Dose: 5,000 unit Documented by: Lactated Ringer's (Lactated Ringers Solution) 1,000 ml in 1,000 mls @ 125 mls/hr IV ASDIR [facility] Stop: 10/13/19 12:29 Last Admin: 10/12/19 05:36 Dose: Not Given Documented by: Piperacillin Sod/Tazobactam (Sod 3.375 gm/ Dextrose) 50 mls @ 100 mls/hr IVPB Q8H-IV [facility]; Protocol Last Admin: 10/12/19 01:37 Dose: 100 mls/hr Documented by: Melatonin (Melatonin) 5 mg PO HS PRN PRN Reason: INSOMNIA Last Admin: 10/12/19 01:18 Dose: 5 mg Documented by: Pneumococcal 13-Valent Conj Vacc (Prevnar 13 Syringe -) 0.5 ml IM .ONCE ONE Stop: 10/11/19 10:01 Tamsulosin HCl (Flomax -) 0.4 mg PO DAILY@0830 [facility] Last Admin: 10/11/19 12:01 Dose: 0.4 mg Documented by: - Objective Vital Signs: Vital Signs Temperature 99.5 F 10/12/19 06:00 Pulse Rate 75 10/12/19 06:00 Respiratory Rate 18 10/12/19 06:00 Blood Pressure 122/64 10/12/19 02:00 O2 Sat by Pulse Oximetry (%) 97 10/12/19 06:00 Labs: CBC, BMP 10/12/19 05:42 10/12/19 05:42 Problem List - Problems (1) BPH (benign prostatic hyperplasia) Code(s): N40.0 - BENIGN PROSTATIC HYPERPLASIA WITHOUT LOWER URINRY TRACT SYMP (2) Prophylactic measure Code(s): Z29.9 - ENCOUNTER FOR PROPHYLACTIC MEASURES, UNSPECIFIED (3) Suspected COVID-19 virus infection Code(s): Z20.828 - CONTACT W AND EXPOSURE TO [facility] VIRAL COMMUNICABLE DISEASES (4) Sepsis Code(s): A41.9 - SEPSIS, UNSPECIFIED ORGANISM Qualifiers: Sepsis type: sepsis due to unspecified organism Sepsis acute organ dysfunction status: unspecified Qualified Code(s): A41.9 - Sepsis, unspecified organism (5) Urinary tract stone Code(s): N20.9 - URINARY CALCULUS, UNSPECIFIED Qualifiers: Urinary calculus location: ureter Qualified Code(s): N20.1 - Calculus of ureter (6) Syncope and collapse Code(s): R55 - SYNCOPE AND COLLAPSE (7) TRISTON (acute kidney injury) Code(s): N17.9 - ACUTE KIDNEY FAILURE, UNSPECIFIED (8) Leukocytosis Code(s): D72.829 - ELEVATED WHITE BLOOD CELL COUNT, UNSPECIFIED (9) Hyperbilirubinemia Code(s): E80.6 - OTHER DISORDERS OF BILIRUBIN METABOLISM (10) Lactic acid acidosis Code(s): E87.2 - ACIDOSIS (11) Carotid stenosis Code(s): I65.29 - OCCLUSION AND STENOSIS OF UNSPECIFIED CAROTID ARTERY
[2019-10-12] MEDS: TAMSULOSIN HCL 0.4 MG CAP PO SCH (09:08)
[2019-10-12] MEDS: ACETAMINOPHEN 325 MG TABLET (FP) PO PRN ×2 (09:09→18:00)
--- NOTE | 2019-10-12 11:33 | PN ---
Progress Note, Physician History of Present Illness: AWAKE, ALERT SEATED IN BED REPORTS FEELING BETTER + URINARY INCONTINENCE DENIES DYSURIA NO F/C AFEBRILE WBC IMPROVED BC, URINE C/S + GNR - Current Medication List Current Medications: Active Medications Acetaminophen (Tylenol -) 650 mg PO Q6H PRN PRN Reason: PAIN LEVEL 4 - 6 Last Admin: 10/12/19 09:09 Dose: 650 mg Documented by: Heparin Sodium (Porcine) (Heparin -) 5,000 unit SQ TID [facility] Last Admin: 10/12/19 05:27 Dose: 5,000 unit Documented by: Lactated Ringer's (Lactated Ringers Solution) 1,000 ml in 1,000 mls @ 125 mls/hr IV ASDIR [facility] Stop: 10/13/19 12:29 Last Admin: 10/12/19 09:59 Dose: 125 mls/hr Documented by: Piperacillin Sod/Tazobactam (Sod 3.375 gm/ Dextrose) 50 mls @ 100 mls/hr IVPB Q8H-IV [facility]; Protocol Last Admin: 10/12/19 09:09 Dose: 100 mls/hr Documented by: Melatonin (Melatonin) 5 mg PO HS PRN PRN Reason: INSOMNIA Last Admin: 10/12/19 01:18 Dose: 5 mg Documented by: Pneumococcal 13-Valent Conj Vacc (Prevnar 13 Syringe -) 0.5 ml IM .ONCE ONE Stop: 10/11/19 10:01 Tamsulosin HCl (Flomax -) 0.4 mg PO DAILY@0830 [facility] Last Admin: 10/12/19 09:08 Dose: 0.4 mg Documented by: - Objective Vital Signs: Vital Signs Temperature 98.9 F 10/12/19 10:04 Pulse Rate 83 10/12/19 09:09 Respiratory Rate 18 10/12/19 09:09 Blood Pressure 122/64 10/12/19 02:00 O2 Sat by Pulse Oximetry (%) 96 10/12/19 09:09 Constitutional: Yes: No Distress Eyes: Yes: Conjunctiva Clear Cardiovascular: Yes: Regular Rate and Rhythm, S1, S2 Respiratory: Yes: CTA Bilaterally Gastrointestinal: Yes: Normal Bowel Sounds, Soft. No: Tenderness Edema: No Labs: CBC, BMP 10/12/19 05:42 10/12/19 05:42 Assessment/Plan GRAM NEGATIVE BACTEREMIA/ SEPSIS SECONDARY TO SOURCE UTI URINARY INCONTINENCE FEVER/ LEUKOCYTOSIS IMPROVED AZOTEMIA IMPROVED LACTIC ACIDOSIS RESOLVED AWAIT C/S CONTINUE EMPIRIC ZOSYN
[2019-10-12] MEDS ORDERED: LACTATED RINGERS SOLUTION 1,000 ML/1,000 ML INFUS.BAG IV SCH (13:50)
--- NOTE | 2019-10-12 13:59 | PN ---
Progress Note (short form) - Note Progress Note: RENAL Feels well has urinary incontience, cant even wait to use the urinal Last Vital Signs Temp Pulse Resp BP Pulse Ox 98.3 F 68 18 122/64 95 10/12/19 13:50 10/12/19 13:50 10/12/19 13:50 10/12/19 02:00 10/12/19 13:50 lungs clear cvs 1s2 rr abd soft ext no edema neuro a+ox3 CBC, BMP 10/12/19 05:42 10/12/19 05:42 Current Medications Generic Name Dose Route Start Last Admin Trade Name Freq PRN Reason Stop Dose Admin Acetaminophen 650 mg 10/11/19 14:00 10/12/19 09:09 Tylenol - PO 650 mg Q6H PRN Administration PAIN LEVEL 4 - 6 Heparin Sodium (Porcine) 5,000 unit 10/11/19 06:00 10/12/19 13:45 Heparin - SQ 5,000 unit TID [facility] Administration Piperacillin Sod/Tazobactam 50 mls @ 100 mls/hr 10/11/19 18:00 10/12/19 09:09 Sod 3.375 gm/ Dextrose IVPB 100 mls/hr Q8H-IV [facility] Administration Protocol Lactated Ringer's 1,000 ml in 1,000 mls @ 100 mls/hr 10/12/19 13:50 Lactated Ringers Solution IV 10/13/19 12:29 ASDIR [facility] Melatonin 5 mg 10/11/19 23:16 10/12/19 01:18 Melatonin PO 5 mg HS PRN Administration INSOMNIA Pneumococcal 13-Valent Conj Vacc 0.5 ml 10/11/19 10:00 Prevnar 13 Syringe - IM 10/11/19 10:01 .ONCE ONE Tamsulosin HCl 0.4 mg 10/11/19 11:24 10/12/19 09:08 Flomax - PO 0.4 mg DAILY@0830 [facility] Administration IMPRESSION TRISTON improved urinary incontinence UTI s/p syncopal episode PLAN continue fluids antibiotics renal/bladder sono tamsulosin If no significant PVR would try mirbetryq or a similar med MV
--- NOTE | 2019-10-12 14:36 | PN ---
Progress Note, Physician History of Present Illness: Pt is a 68 y/o male with BPH (on tamsulosin years ago) and hx of nephrolithiasis with hydronephrosis who presents after syncope. Pt reports watching TV in his bedroom around 10pm and felt weak to get out of bed. When he got up, he walked to the window in the living room then felt like he was shaking, and the next thing he recalls is being on the floor yelling for his . He does not recall how he landed on the floor or if he hit his head. EMS was able to help him in a chair before transport. He reports an episode of urinary incontinence in bed just prior, which has never happened before. He denies fever, chills, nausea, vomiting. He reports intermittent diarrhea, but he has not had it in the last day. - Current Medication List Current Medications: Active Medications Acetaminophen (Tylenol -) 650 mg PO Q6H PRN PRN Reason: PAIN LEVEL 4 - 6 Last Admin: 10/12/19 09:09 Dose: 650 mg Documented by: Heparin Sodium (Porcine) (Heparin -) 5,000 unit SQ TID [facility] Last Admin: 10/12/19 13:45 Dose: 5,000 unit Documented by: Piperacillin Sod/Tazobactam (Sod 3.375 gm/ Dextrose) 50 mls @ 100 mls/hr IVPB Q8H-IV [facility]; Protocol Last Admin: 10/12/19 09:09 Dose: 100 mls/hr Documented by: Lactated Ringer's (Lactated Ringers Solution) 1,000 ml in 1,000 mls @ 100 mls/hr IV ASDIR [facility] Stop: 10/13/19 12:29 Last Admin: 10/12/19 14:14 Dose: 100 mls/hr Documented by: Melatonin (Melatonin) 5 mg PO HS PRN PRN Reason: INSOMNIA Last Admin: 10/12/19 01:18 Dose: 5 mg Documented by: Pneumococcal 13-Valent Conj Vacc (Prevnar 13 Syringe -) 0.5 ml IM .ONCE ONE Stop: 10/11/19 10:01 Tamsulosin HCl (Flomax -) 0.4 mg PO DAILY@0830 [facility] Last Admin: 10/12/19 09:08 Dose: 0.4 mg Documented by: - Objective Vital Signs: Vital Signs Temperature 98.3 F 10/12/19 13:50 Pulse Rate 68 10/12/19 13:50 Respiratory Rate 18 10/12/19 13:50 Blood Pressure 122/64 10/12/19 02:00 O2 Sat by Pulse Oximetry (%) 95 10/12/19 13:50 Eyes: Yes: WNL, Conjunctiva Clear, EOM Intact HENT: Yes: WNL, Atraumatic, Normocephalic Neck: Yes: WNL, Supple, Trachea Midline Cardiovascular: Yes: WNL, Regular Rate and Rhythm Respiratory: Yes: WNL, Regular, CTA Bilaterally Gastrointestinal: Yes: WNL, Normal Bowel Sounds Genitourinary: Yes: WNL Musculoskeletal: Yes: WNL Extremities: Yes: WNL Edema: No Integumentary: Yes: WNL Neurological: Yes: WNL, Alert, Oriented ...Motor Strength: WNL Psychiatric: Yes: WNL Labs: CBC, BMP 10/12/19 05:42 10/12/19 05:42 Problem List - Problems (1) TRISTON (acute kidney injury) Code(s): N17.9 - ACUTE KIDNEY FAILURE, UNSPECIFIED (2) BPH (benign prostatic hyperplasia) Code(s): N40.0 - BENIGN PROSTATIC HYPERPLASIA WITHOUT LOWER URINRY TRACT SYMP (3) Carotid stenosis Code(s): I65.29 - OCCLUSION AND STENOSIS OF UNSPECIFIED CAROTID ARTERY (4) Hyperbilirubinemia Code(s): E80.6 - OTHER DISORDERS OF BILIRUBIN METABOLISM (5) Lactic acid acidosis Code(s): E87.2 - ACIDOSIS (6) Leukocytosis Code(s): D72.829 - ELEVATED WHITE BLOOD CELL COUNT, UNSPECIFIED (7) Prophylactic measure Code(s): Z29.9 - ENCOUNTER FOR PROPHYLACTIC MEASURES, UNSPECIFIED (8) Sepsis Code(s): A41.9 - SEPSIS, UNSPECIFIED ORGANISM Qualifiers: Sepsis type: sepsis due to unspecified organism Sepsis acute organ dysfunction status: unspecified Qualified Code(s): A41.9 - Sepsis, unspecified organism (9) Suspected COVID-19 virus infection Code(s): Z20.828 - CONTACT W AND EXPOSURE TO OTH VIRAL COMMUNICABLE DISEASES (10) Syncope and collapse Code(s): R55 - SYNCOPE AND COLLAPSE (11) Urinary tract stone Code(s): N20.9 - URINARY CALCULUS, UNSPECIFIED Qualifiers: Urinary calculus location: ureter Qualified Code(s): N20.1 - Calculus of ureter Assessment/Plan changes in MS denies syncope urosepsis leukocytosis lactic acidosis Plan telemetry echo ce serial ekg Cardiac w/u if not done recently when stable
[2019-10-12] MEDS ORDERED: PT OWN MED DRAWER 7, Y5N ONE ×2 (15:37→17:58)
[2019-10-12] MEDS: OXYBUTYNIN CHLORIDE 5 MG TABLET PO SCH (17:51)
[2019-10-13] MEDS ORDERED: PIPERACILLIN/TAZOBACTAM 3.375 GM VIAL IVPB ONE ×2 (00:58→10:14)
[2019-10-13] MEDS ORDERED: DEXTROSE 5%-WATER - 50 ML IVPB ONE ×2 (00:59→10:14)
[2019-10-13] MEDS: PIPERACILLIN/TAZOB 3.375 GM 3.375 GM in DEXTROSE 5%-WATER - 50 ML IVPB SCH ×2 (01:21→10:23)
[2019-10-13] MEDS: HEPARIN NA (PORCINE) 5,000 UNITS/ML 1ML VIAL SQ SCH ×3 (05:39→21:17)
[2019-10-13] MEDS: ACETAMINOPHEN 325 MG TABLET (FP) PO PRN (05:51)
[2019-10-13 06:38] LABS: BASO % 0.5 % (0-2.0); EOS % 2.9 % (0-4.5); HEMOGLOBIN 12.6 GM/dL (11.7-16.9); LYMPH % 7.7 % (8-40); MCH 29.2 pg (25.7-33.7); MCHC 33.1 g/dl (32.0-35.9); MEAN CELL VOLUME 88.2 fl (80-96); MEAN PLT VOLUME 9.4 fl (7.5-11.1); MONO % 7.2 % (3.8-10.2); NEUT % 81.7 % (42.8-82.8); PLATELET COUNT 173 K/MM3 (134-434); RBC 4.31 M/mm3 (4.00-5.60); RDW 14.7 % (11.9-15.9); WHITE BLOOD COUNT 7.4 K/mm3 (4.0-10.0)
[2019-10-13 07:09] LABS: ALBUMIN 2.6 g/dl (3.4-5.0); BLOOD UREA NITROGEN 18.9 mg/dL (7-18); CALCIUM 8.1 mg/dL (8.5-10.1); CREATININE 1.1 mg/dL (0.55-1.3); MAGNESIUM 2.1 mg/dL (1.8-2.4); POTASSIUM 4.1 mmol/L (3.5-5.1)
--- NOTE | 2019-10-13 08:14 | PN ---
Progress Note, Physician Chief Complaint: Feels improved denies any dizziness or weakness, remained afebrile History of Present Illness: 68 years old man history of BPH on Flomax also history of nephrolithiasis with hydronephrosis presented after an episode of dizziness/syncope in the setting of UTI with sepsis, TRISTON, improving with IV antibiotic blood and urine culture grew Klebsiella pneumoniae sensitive to ceftriaxone T WBC trended normal, TRISTON resolved, renal ultrasound shows no stones no hydronephrosis - Current Medication List Current Medications: Active Medications Acetaminophen (Tylenol -) 650 mg PO Q6H PRN PRN Reason: PAIN LEVEL 4 - 6 Last Admin: 10/13/19 05:51 Dose: 650 mg Documented by: Heparin Sodium (Porcine) (Heparin -) 5,000 unit SQ TID [facility] Last Admin: 10/13/19 05:39 Dose: 5,000 unit Documented by: Piperacillin Sod/Tazobactam (Sod 3.375 gm/ Dextrose) 50 mls @ 100 mls/hr IVPB Q8H-IV [facility]; Protocol Last Admin: 10/13/19 01:21 Dose: 100 mls/hr Documented by: Lactated Ringer's (Lactated Ringers Solution) 1,000 ml in 1,000 mls @ 100 mls/hr IV ASDIR [facility] Stop: 10/13/19 12:29 Last Admin: 10/12/19 14:14 Dose: 100 mls/hr Documented by: Melatonin (Melatonin) 5 mg PO HS PRN PRN Reason: INSOMNIA Last Admin: 10/12/19 22:46 Dose: 5 mg Documented by: Oxybutynin Chloride (Ditropan -) 5 mg PO DAILY [facility] Last Admin: 10/12/19 17:51 Dose: 5 mg Documented by: Pneumococcal 13-Valent Conj Vacc (Prevnar 13 Syringe -) 0.5 ml IM .ONCE ONE Stop: 10/11/19 10:01 Tamsulosin HCl (Flomax -) 0.4 mg PO DAILY@0830 [facility] Last Admin: 10/12/19 09:08 Dose: 0.4 mg Documented by: - Objective Vital Signs: Vital Signs Temperature 100.1 F H 10/13/19 07:00 Pulse Rate 72 10/13/19 07:00 Respiratory Rate 18 10/13/19 07:00 Blood Pressure 149/88 10/13/19 07:00 O2 Sat by Pulse Oximetry (%) 96 10/13/19 07:00 General: Elderly man, comfortable, not in distress HEENT mucous membranes moist, no anemia, no jaundice, PERRLA, no nystagmus Neck: No JVD, supple, no bruit, thyroid palpably normal, normal carotid pulsations. Chest: Nontender, clear to auscultation bilaterally CVS: S1-S2 regular no murmur/gallop/rub Abdomen: Nondistended, soft, bowel sounds present. Extremities: No edema., No Calf tenderness, pulses present [employer]: AO X3 , no gross motor sensory deficit Labs: CBC, BMP 10/13/19 05:20 10/13/19 05:20 Microbiology 10/11/19 00:05 Blood Culture - Final Blood - Peripheral Venous Klebsiella Pneumoniae 10/11/19 00:50 Urine Culture - Final Urine - Urine Clean Catch Klebsiella Pneumoniae 10/11/19 00:05 Blood Culture - Preliminary Blood - Peripheral Venous NO GROWTH OBTAINED AFTER 48 HOURS, INCUBATION TO CONTINUE FOR 3 DAYS. - ....Imaging Ultrasound: Report Reviewed (Renal ultrasound: Normal kidney size and shape, no hydronephrosis no stone) Other: Report Reviewed (Echocardiogram: Normal ejection fraction no regional wall motion abnormality.) Problem List - Problems (1) Sepsis secondary to UTI Assessment/Plan: Presented with UTI with sepsis elevated white blood cell count, urine culture and blood culture grew Klebsiella pneumonia sensitive to ceftriaxone, now afebrile T WBC trended normal, lactic acid trending normal, will switch to ceftriaxone 2 g daily repeat blood cultures. Problems reviewed: Yes Code(s): A41.9 - SEPSIS, UNSPECIFIED ORGANISM; N39.0 - URINARY TRACT INFECTION, SITE NOT SPECIFIED (2) TRISTON (acute kidney injury) Assessment/Plan: In the setting of sepsis and dehydration improved with IV hydration. No obstructive uropathy or renal stone. Problems reviewed: Yes Code(s): N17.9 - ACUTE KIDNEY FAILURE, UNSPECIFIED (3) Syncope and collapse Assessment/Plan: Due to dehydration and sepsis, normal echo, no arrhythmia on water pumper, unlikely cardiac etiology EKG unremarkable, telemetry monitoring can be discontinued. Problems reviewed: Yes Code(s): R55 - SYNCOPE AND COLLAPSE (4) BPH (benign prostatic hyperplasia) Assessment/Plan: Continue Flomax. Problems reviewed: Yes Code(s): N40.0 - BENIGN PROSTATIC HYPERPLASIA WITHOUT LOWER URINRY TRACT SYMP (5) Dehydration Assessment/Plan: Corrected with IV hydration Problems reviewed: Yes Code(s): E86.0 - DEHYDRATION (6) Lactic acid acidosis Assessment/Plan: due t0 sepsis improved after hydration. Problems reviewed: Yes Code(s): E87.2 - ACIDOSIS
--- NOTE | 2019-10-13 08:37 | PN ---
Progress Note, Physician History of Present Illness: Pt is a 68 y/o male with BPH (on tamsulosin years ago) and hx of nephrolithiasis with hydronephrosis who presents after syncope. Pt reports watching TV in his bedroom around 10pm and felt weak to get out of bed. When he got up, he walked to the window in the living room then felt like he was shaking, and the next thing he recalls is being on the floor yelling for his . He does not recall how he landed on the floor or if he hit his head. EMS was able to help him in a chair before transport. He reports an episode of urinary incontinence in bed just prior, which has never happened before. He denies fever, chills, nausea, vomiting. He reports intermittent diarrhea, but he has not had it in the last day. - Current Medication List Current Medications: Active Medications Acetaminophen (Tylenol -) 650 mg PO Q6H PRN PRN Reason: PAIN LEVEL 4 - 6 Last Admin: 10/13/19 05:51 Dose: 650 mg Documented by: Heparin Sodium (Porcine) (Heparin -) 5,000 unit SQ TID [facility] Last Admin: 10/13/19 05:39 Dose: 5,000 unit Documented by: Piperacillin Sod/Tazobactam (Sod 3.375 gm/ Dextrose) 50 mls @ 100 mls/hr IVPB Q8H-IV [facility]; Protocol Last Admin: 10/13/19 01:21 Dose: 100 mls/hr Documented by: Lactated Ringer's (Lactated Ringers Solution) 1,000 ml in 1,000 mls @ 100 mls/hr IV ASDIR [facility] Stop: 10/13/19 12:29 Last Admin: 10/12/19 14:14 Dose: 100 mls/hr Documented by: Melatonin (Melatonin) 5 mg PO HS PRN PRN Reason: INSOMNIA Last Admin: 10/12/19 22:46 Dose: 5 mg Documented by: Oxybutynin Chloride (Ditropan -) 5 mg PO DAILY [facility] Last Admin: 10/12/19 17:51 Dose: 5 mg Documented by: Pneumococcal 13-Valent Conj Vacc (Prevnar 13 Syringe -) 0.5 ml IM .ONCE ONE Stop: 10/11/19 10:01 Tamsulosin HCl (Flomax -) 0.4 mg PO DAILY@0830 [facility] Last Admin: 10/12/19 09:08 Dose: 0.4 mg Documented by: - Objective Vital Signs: Vital Signs Temperature 98 F 10/13/19 08:33 Pulse Rate 64 10/13/19 08:33 Respiratory Rate 20 10/13/19 08:33 Blood Pressure 126/64 10/13/19 08:33 O2 Sat by Pulse Oximetry (%) 96 10/13/19 08:33 Eyes: Yes: WNL, Conjunctiva Clear, EOM Intact HENT: Yes: WNL, Atraumatic, Normocephalic Neck: Yes: WNL, Supple, Trachea Midline Cardiovascular: Yes: WNL, Regular Rate and Rhythm Respiratory: Yes: WNL, Regular, CTA Bilaterally Gastrointestinal: Yes: WNL, Normal Bowel Sounds Genitourinary: Yes: WNL Musculoskeletal: Yes: WNL Extremities: Yes: WNL Edema: No Integumentary: Yes: WNL Neurological: Yes: WNL, Alert, Oriented ...Motor Strength: WNL Psychiatric: Yes: WNL Labs: CBC, BMP 10/13/19 05:20 10/13/19 05:20 Problem List - Problems (1) TRISTON (acute kidney injury) Code(s): N17.9 - ACUTE KIDNEY FAILURE, UNSPECIFIED (2) BPH (benign prostatic hyperplasia) Code(s): N40.0 - BENIGN PROSTATIC HYPERPLASIA WITHOUT LOWER URINRY TRACT SYMP (3) Carotid stenosis Code(s): I65.29 - OCCLUSION AND STENOSIS OF UNSPECIFIED CAROTID ARTERY (4) Hyperbilirubinemia Code(s): E80.6 - OTHER DISORDERS OF BILIRUBIN METABOLISM (5) Lactic acid acidosis Code(s): E87.2 - ACIDOSIS (6) Leukocytosis Code(s): D72.829 - ELEVATED WHITE BLOOD CELL COUNT, UNSPECIFIED (7) Prophylactic measure Code(s): Z29.9 - ENCOUNTER FOR PROPHYLACTIC MEASURES, UNSPECIFIED (8) Sepsis Code(s): A41.9 - SEPSIS, UNSPECIFIED ORGANISM Qualifiers: Sepsis type: sepsis due to unspecified organism Sepsis acute organ dysfunction status: unspecified Qualified Code(s): A41.9 - Sepsis, unspecified organism (9) Suspected COVID-19 virus infection Code(s): Z20.828 - CONTACT W AND EXPOSURE TO OTH VIRAL COMMUNICABLE DISEASES (10) Syncope and collapse Code(s): R55 - SYNCOPE AND COLLAPSE (11) Urinary tract stone Code(s): N20.9 - URINARY CALCULUS, UNSPECIFIED Qualifiers: Urinary calculus location: ureter Qualified Code(s): N20.1 - Calculus of ureter Assessment/Plan changes in MS denies syncope urosepsis leukocytosis lactic acidosis Plan telemetry echo ce serial ekg Cardiac w/u if not done recently when stable
[2019-10-13] MEDS ORDERED: PNEUMOC 13-VAL CONJ-DIP CRM/PF 0.5 ML DISP.SYRIN IM ONE (10:00)
[2019-10-13] MEDS ORDERED: PT OWN MED DRAWER 7, Y5N ONE (10:14)
--- NOTE | 2019-10-13 10:14 | EKG ---
Test Reason : Blood Pressure : / mmHG Vent. Rate : 082 BPM Atrial Rate : 082 BPM P-R Int : 144 ms QRS Dur : 090 ms QT Int : 358 ms P-R-T Axes : -18 -21 005 degrees QTc Int : 418 ms NORMAL SINUS RHYTHM NONSPECIFIC T WAVE ABNORMALITY ABNORMAL ECG NO PREVIOUS ECGS AVAILABLE Confirmed by Oh Rand ([id number]) on 10/13/2019 10:13:56 AM Referred By: Confirmed By:Oh Rand
[2019-10-13] MEDS: OXYBUTYNIN CHLORIDE 5 MG TABLET PO SCH (10:23)
[2019-10-13] MEDS: TAMSULOSIN HCL 0.4 MG CAP PO SCH (10:23)
--- NOTE | 2019-10-13 10:41 | ECHO ---
Name: JAROD CHILDS Exam:Adult Echocardiogram Study Date: 10/13/2019 09:29 AM Age: 68 yrs Reason For Study: SYNCOPE and collapse Height: 74 in Weight: 226 lb BSA: 2.3 m2 MMode/2D Measurements & Calculations RVDd: 4.4 cm Ao root diam: 3.9 cm IVSd: 1.1 cm LA dimension: 3.5 cm LVIDd: 4.5 cm ACS: 2.3 cm LVIDs: 3.1 cm LVPWd: 1.1 cm EDV(Teich): 93.9 ml LVOT diam: 2.0 cm ESV(Teich): 38.7 ml LAV (MOD-bp): 85.0 ml TAPSE: 2.5 cm RV S Austin: 13.5 cm/sec Doppler Measurements & Calculations MV E max austin: 67.1 cm/sec Ao V2 max: 133.0 cm/sec MV A max austin: 82.7 cm/sec Ao max P.1 mmHg MV E/A: 0.81 Ao V2 mean: 90.6 cm/sec MV dec time: 0.23 sec Ao mean P.6 mmHg Ao V2 VTI: 26.5 cm ELSIE(I,D): 2.8 cm2 ELSIE(V,D): 2.7 cm2 LV V1 max P.5 mmHg MR max austin: 396.3 cm/sec LV V1 mean P.0 mmHg MR max P.8 mmHg LV V1 max: 117.0 cm/sec LV V1 mean: 80.5 cm/sec LV V1 VTI: 24.7 cm SV(LVOT): 74.8 ml TR max austin: 238.2 cm/sec TR max P.7 mmHg PA V2 max: 85.5 cm/sec Med Peak E' Austin: 5.3 cm/sec PA max P.9 mmHg Med E/e': 12.8 PA acc slope: 398.6 cm/sec2 Lat Peak E' Austin: 10.1 cm/sec PA acc time: 0.11 sec Lat E/e': 6.6 PA pr(Accel): 28.3 mmHg Pulm Sys Austin: 65.0 cm/sec Pulm Castro Austin: 58.5 cm/sec Pulm S/D: 1.1 Procedure Study Quality: Fair. Left Ventricle The left ventricle is normal in size. There is borderline concentric left ventricular hypertrophy. Th e left ventricular ejection fraction is normal. Ejection Fraction = 55-60%. The transmitral spectral Doppler flow pattern is suggestive of impaired LV relaxation. Right Ventricle The right ventricle is normal in size and function. Atria The left atrium is mildly dilated. Right atrial size is normal. Mitral Valve The mitral valve leaflets appear normal. There is no evidence of stenosis, fluttering, or prolapse. T here is trace mitral regurgitation. Tricuspid Valve The tricuspid valve is normal. There is trace tricuspid regurgitation. Aortic Valve The aortic valve is normal in structure and function. Pulmonic Valve The pulmonic valve leaflets are thin and pliable; valve motion is normal. Great Vessels Mild aortic root dilatation. Pericardium/Pleura There is no pericardial effusion. Interpretation Summary LV: Normal size,borderline LVH,normal systolic function, EF 55-60%,impaired relaxation RV: Normal LA: mildly dilated Aorta: Mildly dilated Sinus of Valsalve 4.2 cm, normal ascending 3.4 cm and arch 2.7 cm No significant valvular dysfuntion. Oh Rand 10/13/2019 10:40 AM
[2019-10-13] MEDS ORDERED: DEXTROSE 5%-WATER 100 ML IVPB ONE (14:27)
[2019-10-13] MEDS ORDERED: cefTRIAXone SODIUM 1 GM VIAL ONE (14:27)
--- NOTE | 2019-10-13 14:27 | PN ---
Progress Note, Physician History of Present Illness: AWAKE, ALERT SEATED IN BED REPORTS FEELING BETTER STILL WITH URINARY INCONTINENCE DENIES DYSURIA LOW GRADE TEMP NOTED WBC IMPROVED WNL AZOTEMIA IMPROVED RENAL SONO NO HN COVID-19(-) BC, URINE C/S + KLEBSIELLA - Current Medication List Current Medications: Active Medications Acetaminophen (Tylenol -) 650 mg PO Q6H PRN PRN Reason: PAIN LEVEL 4 - 6 Last Admin: 10/13/19 05:51 Dose: 650 mg Documented by: Heparin Sodium (Porcine) (Heparin -) 5,000 unit SQ TID [facility] Last Admin: 10/13/19 05:39 Dose: 5,000 unit Documented by: Ceftriaxone Sodium 2 gm/ (Dextrose) 100 mls @ 100 mls/hr IVPB DAILY [facility] Melatonin (Melatonin) 5 mg PO HS PRN PRN Reason: INSOMNIA Last Admin: 10/12/19 22:46 Dose: 5 mg Documented by: Oxybutynin Chloride (Ditropan -) 5 mg PO DAILY [facility] Last Admin: 10/13/19 10:23 Dose: 5 mg Documented by: Tamsulosin HCl (Flomax -) 0.4 mg PO DAILY@0830 [facility] Last Admin: 10/13/19 10:23 Dose: 0.4 mg Documented by: - Objective Vital Signs: Vital Signs Temperature 98 F 10/13/19 08:33 Pulse Rate 64 10/13/19 08:33 Respiratory Rate 20 10/13/19 08:33 Blood Pressure 126/64 10/13/19 08:33 O2 Sat by Pulse Oximetry (%) 96 10/13/19 09:00 Constitutional: Yes: No Distress Eyes: Yes: Conjunctiva Clear Cardiovascular: Yes: Regular Rate and Rhythm, S1, S2 Respiratory: Yes: CTA Bilaterally Gastrointestinal: Yes: Normal Bowel Sounds, Soft. No: Tenderness Edema: No Labs: CBC, BMP 10/13/19 05:20 10/13/19 05:20 Assessment/Plan GRAM NEGATIVE BACTEREMIA/ SEPSIS SECONDARY TO SOURCE UTI URINARY INCONTINENCE FEVER/ LEUKOCYTOSIS IMPROVED AZOTEMIA IMPROVED LACTIC ACIDOSIS RESOLVED CONTINUE CEFTRIAXONE 2GM IVPB DAILY
[2019-10-13] MEDS: CEFTRIAXONE 2 GM in DEXTROSE 5%-WATER 100 ML IVPB SCH (14:31)
--- NOTE | 2019-10-13 15:11 | PN ---
Progress Note, Physician History of Present Illness: Pt seen and examined at bedside. He is awake and appears comfortable. He denies shortness of breath. - Current Medication List Current Medications: Active Medications Acetaminophen (Tylenol -) 650 mg PO Q6H PRN PRN Reason: PAIN LEVEL 4 - 6 Last Admin: 10/13/19 05:51 Dose: 650 mg Documented by: Heparin Sodium (Porcine) (Heparin -) 5,000 unit SQ TID [facility] Last Admin: 10/13/19 14:31 Dose: 5,000 unit Documented by: Ceftriaxone Sodium 2 gm/ (Dextrose) 100 mls @ 100 mls/hr IVPB DAILY [facility] Last Admin: 10/13/19 14:31 Dose: 100 mls/hr Documented by: Melatonin (Melatonin) 5 mg PO HS PRN PRN Reason: INSOMNIA Last Admin: 10/12/19 22:46 Dose: 5 mg Documented by: Oxybutynin Chloride (Ditropan -) 5 mg PO DAILY [facility] Last Admin: 10/13/19 10:23 Dose: 5 mg Documented by: Tamsulosin HCl (Flomax -) 0.4 mg PO DAILY@0830 [facility] Last Admin: 10/13/19 10:23 Dose: 0.4 mg Documented by: - Objective Vital Signs: Vital Signs Temperature 98.6 F 10/13/19 14:25 Pulse Rate 65 10/13/19 14:25 Respiratory Rate 20 10/13/19 14:25 Blood Pressure 121/73 10/13/19 14:25 O2 Sat by Pulse Oximetry (%) 98 10/13/19 14:25 Constitutional: Yes: Calm Eyes: Yes: Conjunctiva Clear HENT: Yes: Atraumatic Neck: Yes: Supple Cardiovascular: Yes: S1, S2 Respiratory: Yes: CTA Bilaterally Gastrointestinal: Yes: Normal Bowel Sounds, Soft Genitourinary: Yes: Incontinence Musculoskeletal: Yes: WNL Edema: No Integumentary: Yes: WNL Neurological: Yes: Oriented Psychiatric: Yes: Oriented Labs: CBC, BMP 10/13/19 05:20 10/13/19 05:20 Assessment/Plan Current Medications Generic Name Dose Route Start Last Admin Trade Name Freq PRN Reason Stop Dose Admin Acetaminophen 650 mg 10/11/19 14:00 10/13/19 05:51 Tylenol - PO 650 mg Q6H PRN Administration PAIN LEVEL 4 - 6 Heparin Sodium (Porcine) 5,000 unit 10/11/19 06:00 10/13/19 14:31 Heparin - SQ 5,000 unit TID [facility] Administration Ceftriaxone Sodium 2 gm/ 100 mls @ 100 mls/hr 10/13/19 14:45 10/13/19 14:31 Dextrose IVPB 100 mls/hr DAILY [facility] Administration Melatonin 5 mg 10/11/19 23:16 10/12/19 22:46 Melatonin PO 5 mg HS PRN Administration INSOMNIA Oxybutynin Chloride 5 mg 10/12/19 15:00 10/13/19 10:23 Ditropan - PO 5 mg DAILY [facility] Administration Tamsulosin HCl 0.4 mg 10/11/19 11:24 10/13/19 10:23 Flomax - PO 0.4 mg DAILY@0830 [facility] Administration Laboratory Tests 10/10/19 10/11/19 10/11/19 22:45 03:30 15:20 Lactic Acid 2.3 H* 2.3 H* 1.4 Impression 1. TRISTON 2. sepsis 3. syncope 4. bph 5. lactic acidosis Plan - renal function improved - encourage po intake - encourage free water intake - monitor chloride level - abx per primary team
[2019-10-13] MEDS: MELATONIN 5 MG TABLETS PO PRN (21:17)
[2019-10-14] MEDS: HEPARIN NA (PORCINE) 5,000 UNITS/ML 1ML VIAL SQ SCH ×3 (06:17→21:59)
[2019-10-14 07:34] LABS: BASO % 0.7 % (0-2.0); EOS % 4.3 % (0-4.5); HEMATOCRIT 38.7 % (35.4-49); HEMOGLOBIN 12.8 GM/dL (11.7-16.9); LYMPH % 15.3 % (8-40); MCH 29.3 pg (25.7-33.7); MCHC 33.1 g/dl (32.0-35.9); MEAN CELL VOLUME 88.7 fl (80-96); MEAN PLT VOLUME 9.5 fl (7.5-11.1); MONO % 11.1 % (3.8-10.2); NEUT % 68.6 % (42.8-82.8); PLATELET COUNT 208 K/MM3 (134-434); RBC 4.36 M/mm3 (4.00-5.60); RDW 14.4 % (11.9-15.9)
[2019-10-14 08:16] LABS: ALBUMIN 2.7 g/dl (3.4-5.0); BLOOD UREA NITROGEN 14.5 mg/dL (7-18); CALCIUM 8.1 mg/dL (8.5-10.1); MAGNESIUM 2.2 mg/dL (1.8-2.4)
[2019-10-14 08:18] LABS: BILIRUBIN,TOTAL 0.6 mg/dL (0.2-1); TOT PROT 6.2 g/dl (6.4-8.2)
[2019-10-14] MEDS ORDERED: PT OWN MED DRAWER 7, Y5N ONE ×2 (08:28→09:05)
[2019-10-14] MEDS ORDERED: DEXTROSE 5%-WATER 100 ML IVPB ONE (08:28)
[2019-10-14] MEDS ORDERED: cefTRIAXone SODIUM 1 GM VIAL ONE (08:28)
[2019-10-14] MEDS: TAMSULOSIN HCL 0.4 MG CAP PO SCH (08:59)
[2019-10-14] MEDS: CEFTRIAXONE 2 GM in DEXTROSE 5%-WATER 100 ML IVPB SCH (09:02)
[2019-10-14] MEDS: OXYBUTYNIN CHLORIDE 5 MG TABLET PO SCH (09:06)
--- NOTE | 2019-10-14 10:51 | PN ---
Progress Note, Physician History of Present Illness: Pt seen and examined at bedside. He is awake and alert. He denies shortness of breath. - Current Medication List Current Medications: Active Medications Acetaminophen (Tylenol -) 650 mg PO Q6H PRN PRN Reason: PAIN LEVEL 4 - 6 Last Admin: 10/13/19 05:51 Dose: 650 mg Documented by: Heparin Sodium (Porcine) (Heparin -) 5,000 unit SQ TID [facility] Last Admin: 10/14/19 06:17 Dose: 5,000 unit Documented by: Ceftriaxone Sodium 2 gm/ (Dextrose) 100 mls @ 100 mls/hr IVPB DAILY [facility] Last Admin: 10/14/19 09:02 Dose: 100 mls/hr Documented by: Melatonin (Melatonin) 5 mg PO HS PRN PRN Reason: INSOMNIA Last Admin: 10/13/19 21:17 Dose: 5 mg Documented by: Oxybutynin Chloride (Ditropan -) 5 mg PO DAILY [facility] Last Admin: 10/14/19 09:06 Dose: 5 mg Documented by: Tamsulosin HCl (Flomax -) 0.4 mg PO DAILY@0830 [facility] Last Admin: 10/14/19 08:59 Dose: 0.4 mg Documented by: - Objective Vital Signs: Vital Signs Temperature 99.5 F 10/14/19 08:58 Pulse Rate 70 10/14/19 08:58 Respiratory Rate 20 10/14/19 08:58 Blood Pressure 137/88 10/14/19 08:58 O2 Sat by Pulse Oximetry (%) 98 10/14/19 09:12 Constitutional: Yes: Calm Eyes: Yes: Conjunctiva Clear HENT: Yes: Atraumatic Neck: Yes: Supple Cardiovascular: Yes: S1, S2 Respiratory: Yes: CTA Bilaterally Gastrointestinal: Yes: Normal Bowel Sounds, Soft Genitourinary: Yes: WNL Musculoskeletal: Yes: WNL Edema: No Neurological: Yes: Oriented Psychiatric: Yes: Oriented Labs: CBC, BMP 10/14/19 05:36 10/14/19 05:36 Assessment/Plan Current Medications Generic Name Dose Route Start Last Admin Trade Name Freq PRN Reason Stop Dose Admin Acetaminophen 650 mg 10/11/19 14:00 10/13/19 05:51 Tylenol - PO 650 mg Q6H PRN Administration PAIN LEVEL 4 - 6 Heparin Sodium (Porcine) 5,000 unit 10/11/19 06:00 10/14/19 06:17 Heparin - SQ 5,000 unit TID [facility] Administration Ceftriaxone Sodium 2 gm/ 100 mls @ 100 mls/hr 10/13/19 14:45 10/14/19 09:02 Dextrose IVPB 100 mls/hr DAILY [facility] Administration Melatonin 5 mg 10/11/19 23:16 10/13/19 21:17 Melatonin PO 5 mg HS PRN Administration INSOMNIA Oxybutynin Chloride 5 mg 10/12/19 15:00 10/14/19 09:06 Ditropan - PO 5 mg DAILY [facility] Administration Tamsulosin HCl 0.4 mg 10/11/19 11:24 10/14/19 08:59 Flomax - PO 0.4 mg DAILY@0830 [facility] Administration Impression 1. TRISTON 2. sepsis 3. syncope 4. bph 5. lactic acidosis 6. elevated LFT Plan - renal function improving - LFT rising - PO intake improved - chloride improved - encourage free water intake - abx per primary team
--- NOTE | 2019-10-14 16:39 | PN ---
Physical Exam: SUBJECTIVE: Patient seen and examined at the bedside. awake, alert, denies discomfort. OBJECTIVE: Patient is a 68 y/o male with BPH and hx of nephrolithiasis with hydronephrosis who presents to the ED on 10/11/2019 after a syncopal episode. Pt was febrile and hypotensive with leukocytosis and positive UA. He is admitted for sepsis 2/2 acute cystitis. Vital Signs Period Temp Pulse Resp BP Sys/Castro Pulse Ox Last 24 Hr 98.4 F-99.5 F 66-71 20-20 132-145/80-89 98-100 GENERAL: The patient is awake, alert, and fully oriented, in no acute distress. HEAD: Normal with no signs of trauma. EYES: PERRL, extraocular movements intact, sclera anicteric, conjunctiva clear. No ptosis. ENT: Ears normal, nares patent, oropharynx clear without exudates, moist mucous membranes. NECK: Trachea midline, full range of motion, supple. LUNGS: Breath sounds equal, clear to auscultation bilaterally HEART: Regular rate and rhythm ABDOMEN: Soft, nontender, nondistended, normoactive bowel sounds EXTREMITIES: no edema. NEUROLOGICAL: Normal speech, gait steady PSYCH: Normal mood, normal affect. SKIN: Warm, dry, normal turgor, no rashes or lesions noted Laboratory Results - last 24 hr 10/14/19 10/14/19 05:36 05:36 WBC 6.0 RBC 4.36 Hgb 12.8 Hct 38.7 MCV 88.7 MCH 29.3 MCHC 33.1 RDW 14.4 Plt Count 208 D MPV 9.5 Absolute Neuts (auto) 4.1 Neutrophils % 68.6 Lymphocytes % 15.3 D Monocytes % 11.1 H Eosinophils % 4.3 Basophils % 0.7 Nucleated RBC % 0 Sodium 138 Potassium 4.0 Chloride 107 Carbon Dioxide 21 Anion Gap 11 BUN 14.5 Creatinine 1.0 Est GFR (CKD-EPI)AfAm 88.61 Est GFR (CKD-EPI)NonAf 76.45 Random Glucose 88 Calcium 8.1 L Magnesium 2.2 Total Bilirubin 0.6 AST 86 H ALT 74 H Alkaline Phosphatase 149 H Total Protein 6.2 L Albumin 2.7 L Active Medications Generic Name Dose Route Start Last Admin Trade Name Freq PRN Reason Stop Dose Admin Acetaminophen 650 mg 10/11/19 14:00 10/13/19 05:51 Tylenol - PO 650 mg Q6H PRN Administration PAIN LEVEL 4 - 6 Heparin Sodium (Porcine) 5,000 unit 10/11/19 06:00 10/14/19 14:56 Heparin - SQ 5,000 unit TID [facility] Administration Ceftriaxone Sodium 2 gm/ 100 mls @ 100 mls/hr 10/13/19 14:45 10/14/19 09:02 Dextrose IVPB 100 mls/hr DAILY [facility] Administration Melatonin 5 mg 10/11/19 23:16 10/13/19 21:17 Melatonin PO 5 mg HS PRN Administration INSOMNIA Oxybutynin Chloride 5 mg 10/12/19 15:00 10/14/19 09:06 Ditropan - PO 5 mg DAILY [facility] Administration Tamsulosin HCl 0.4 mg 10/11/19 11:24 10/14/19 08:59 Flomax - PO 0.4 mg DAILY@0830 [facility] Administration ASSESSMENT/PLAN: Problem List - Problems (1) Gram-negative bacteremia Assessment/Plan: bacteremia seconday to source/Kleb in UC and BC x 1 bottle. afebrile, leukocytosis improved in last 2 days lactic acidosis resolved On Cetriaxone 2 gram Code(s): R78.81 - BACTEREMIA (2) TRISTON (acute kidney injury) Assessment/Plan: TRISTON improving. Renal following Code(s): N17.9 - ACUTE KIDNEY FAILURE, UNSPECIFIED (3) BPH (benign prostatic hyperplasia) Assessment/Plan: on flomax. monitor output Code(s): N40.0 - BENIGN PROSTATIC HYPERPLASIA WITHOUT LOWER URINRY TRACT SYMP (4) Dehydration Assessment/Plan: encourage PO intake. kidney function improved. Code(s): E86.0 - DEHYDRATION (5) Hyperbilirubinemia Assessment/Plan: resolved Code(s): E80.6 - OTHER DISORDERS OF BILIRUBIN METABOLISM (6) Lactic acid acidosis Assessment/Plan: resolved Code(s): E87.2 - ACIDOSIS (7) Leukocytosis Assessment/Plan: improved in last 2 days. on ceftriaxone 2 grams Code(s): D72.829 - ELEVATED WHITE BLOOD CELL COUNT, UNSPECIFIED (8) Prophylactic measure Code(s): Z29.9 - ENCOUNTER FOR PROPHYLACTIC MEASURES, UNSPECIFIED (9) Sepsis secondary to UTI Code(s): A41.9 - SEPSIS, UNSPECIFIED ORGANISM; N39.0 - URINARY TRACT INFECTION, SITE NOT SPECIFIED (10) Syncope and collapse Assessment/Plan: no further episodes. likely in setting of acute infection. ID following. Code(s): R55 - SYNCOPE AND COLLAPSE (11) Carotid stenosis Assessment/Plan: syncopal episode with near collapse small to moderate plaque to RCA correlation with CTA when Cr normalizes. will discuss with renal Code(s): I65.29 - OCCLUSION AND STENOSIS OF UNSPECIFIED CAROTID ARTERY (12) Incontinence of urine Assessment/Plan: c/o incontinence/urgency on flomax bladder scan to assess PVR Code(s): R32 - UNSPECIFIED URINARY INCONTINENCE (13) LFT elevation Assessment/Plan: LfTs elevated, will monitor. if remains elevated by a.m. will send for liver u/s. will add hep panel for a.m. labs Code(s): R79.89 - OTHER SPECIFIED ABNORMAL FINDINGS OF BLOOD CHEMISTRY (14) DVT prophylaxis Assessment/Plan: heparin TID Code(s): Z29.9 - ENCOUNTER FOR PROPHYLACTIC MEASURES, UNSPECIFIED Visit type - Emergency Visit Emergency Visit: Yes ED Registration Date: 10/11/19 Care time: The patient presented to the Emergency Department on the above date and was hospitalized for further evaluation of their emergent condition. - New Patient This patient is new to me today: Yes Date on this admission: 10/14/19 - Critical Care Critical Care patient: No - Discharge Referral Referred to [facility] Med [facility] No - Medication Review Med list reviewed for High Risk Meds patients 65 and older: Yes
--- NOTE | 2019-10-14 17:06 | PN ---
Progress Note, Physician Chief Complaint: Pt A&Ox3; no chest pain, dizziness, or palpitations. History of Present Illness: Mr. Paz is a 68 y/o white male with a PMH of BPH who presents to the ED s/p episode of AMS at home. Pt states he got up to go to the window, began shaking and sweating. Pt states he does not recall what happened after that. Per , the patient yelled for her and when she went to check on him she found him on the floor on his knees, holding onto a dresser. he denies coughing or chest pain . does state he has had dysuria for a few days. occasional diarrhea; otherwise, no complaints. does not have a primary doctor. no headache. unsure if he hit his head during fall. denies focal weakness or any other complaints. 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 - Current Medication List Current Medications: Active Medications Acetaminophen (Tylenol -) 650 mg PO Q6H PRN PRN Reason: PAIN LEVEL 4 - 6 Last Admin: 10/13/19 05:51 Dose: 650 mg Documented by: Heparin Sodium (Porcine) (Heparin -) 5,000 unit SQ TID [facility] Last Admin: 10/14/19 14:56 Dose: 5,000 unit Documented by: Ceftriaxone Sodium 2 gm/ (Dextrose) 100 mls @ 100 mls/hr IVPB DAILY [facility] Last Admin: 10/14/19 09:02 Dose: 100 mls/hr Documented by: Melatonin (Melatonin) 5 mg PO HS PRN PRN Reason: INSOMNIA Last Admin: 10/13/19 21:17 Dose: 5 mg Documented by: Oxybutynin Chloride (Ditropan -) 5 mg PO DAILY [facility] Last Admin: 10/14/19 09:06 Dose: 5 mg Documented by: Tamsulosin HCl (Flomax -) 0.4 mg PO DAILY@0830 [facility] Last Admin: 10/14/19 08:59 Dose: 0.4 mg Documented by: - Objective Vital Signs: Vital Signs Temperature 98.7 F 10/14/19 14:00 Pulse Rate 68 10/14/19 14:00 Respiratory Rate 20 10/14/19 14:00 Blood Pressure 141/86 10/14/19 14:00 O2 Sat by Pulse Oximetry (%) 98 10/14/19 09:12 Constitutional: Yes: Calm Eyes: Yes: WNL HENT: Yes: WNL Neck: Yes: WNL Cardiovascular: Yes: S1, S2, S4 Respiratory: Yes: WNL Gastrointestinal: Yes: Soft ...Rectal Exam: Yes: Deferred Genitourinary: No: Anuria Musculoskeletal: Yes: Muscle Weakness Extremities: Yes: Cool Edema: No Peripheral Pulses WNL: Yes Integumentary: Yes: WNL Neurological: Yes: Alert, Oriented, Weakness Psychiatric: Yes: Alert, Oriented Labs: CBC, BMP 10/14/19 05:36 10/14/19 05:36 Abnormal Lab Results 10/11/19 10/12/19 10/14/19 15:20 05:42 05:36 Monocytes % 11.1 H Anion Gap 6 L 6 L BUN 21.1 H 19.4 H Creatinine 1.5 H Calcium 8.1 L Total Bilirubin 1.8 H AST ALT Alkaline Phosphatase Total Protein 6.2 L Albumin 2.8 L 10/14/19 05:36 Monocytes % Anion Gap BUN Creatinine Calcium 8.1 L Total Bilirubin AST 86 H ALT 74 H Alkaline Phosphatase 149 H Total Protein 6.2 L Albumin 2.7 L - ....Imaging Chest X-ray: Image Reviewed Ultrasound: Report Reviewed EKG: Image Reviewed Assessment/Plan changes in MS denies syncope right carotid artery stenosis urosepsis leukocytosis lactic acidosis Plan telemetry echo: normal LVEF; abnormal diastolic compliance; mildly dilated ascending aorta TNI pending serial ekg Cardiac w/u if not done recently when stable f/u regarding carotid findings; CTA recommended aggressive control of lipids and BP mildly elevated TSH; f/u free T4.
--- NOTE | 2019-10-14 20:36 | PN ---
Progress Note, Physician History of Present Illness: AWAKE, ALERT SEATED IN BED REPORTS FEELING BETTER STILL WITH URINARY INCONTINENCE DENIES DYSURIA TEMPS DOWN AFEBRILE WBC IMPROVED WNL AZOTEMIA IMPROVED RENAL SONO NO HN COVID-19(-) BC, URINE C/S + KLEBSIELLA - Current Medication List Current Medications: Active Medications Acetaminophen (Tylenol -) 650 mg PO Q6H PRN PRN Reason: PAIN LEVEL 4 - 6 Last Admin: 10/13/19 05:51 Dose: 650 mg Documented by: Heparin Sodium (Porcine) (Heparin -) 5,000 unit SQ TID [facility] Last Admin: 10/14/19 14:56 Dose: 5,000 unit Documented by: Ceftriaxone Sodium 2 gm/ (Dextrose) 100 mls @ 100 mls/hr IVPB DAILY [facility] Last Admin: 10/14/19 09:02 Dose: 100 mls/hr Documented by: Sodium Chloride (Normal Saline -) 1,000 mls @ 100 mls/hr IV ASDIR [facility] Melatonin (Melatonin) 5 mg PO HS PRN PRN Reason: INSOMNIA Last Admin: 10/13/19 21:17 Dose: 5 mg Documented by: Oxybutynin Chloride (Ditropan -) 5 mg PO DAILY [facility] Last Admin: 10/14/19 09:06 Dose: 5 mg Documented by: Tamsulosin HCl (Flomax -) 0.4 mg PO DAILY@0830 [facility] Last Admin: 10/14/19 08:59 Dose: 0.4 mg Documented by: - Objective Vital Signs: Vital Signs Temperature 99.1 F 10/14/19 18:00 Pulse Rate 67 10/14/19 18:00 Respiratory Rate 20 10/14/19 18:00 Blood Pressure 121/73 10/14/19 18:00 O2 Sat by Pulse Oximetry (%) 94 L 10/14/19 18:00 Constitutional: Yes: No Distress Eyes: Yes: Conjunctiva Clear Cardiovascular: Yes: Regular Rate and Rhythm, S1, S2 Respiratory: Yes: CTA Bilaterally Gastrointestinal: Yes: Normal Bowel Sounds, Soft Edema: No Labs: CBC, BMP 10/14/19 05:36 10/14/19 05:36 Assessment/Plan GRAM NEGATIVE BACTEREMIA/ SEPSIS SECONDARY TO SOURCE UTI URINARY INCONTINENCE FEVER/ LEUKOCYTOSIS IMPROVED AZOTEMIA IMPROVED LACTIC ACIDOSIS RESOLVED CONTINUE CEFTRIAXONE 2GM IVPB DAILY DAY#4 WILL NEED 7D IV ANTIBIOTIC THERAPY, THEN PO
[2019-10-14] MEDS: MELATONIN 5 MG TABLETS PO PRN (21:59)
[2019-10-15] MEDS: HEPARIN NA (PORCINE) 5,000 UNITS/ML 1ML VIAL SQ SCH ×3 (05:59→21:33)
[2019-10-15 08:15] LABS: BASO % 0.6 % (0-2.0); EOS % 2.4 % (0-4.5); HEMATOCRIT 41.6 % (35.4-49); HEMOGLOBIN 13.6 GM/dL (11.7-16.9); LYMPH % 11.2 % (8-40); MCH 28.8 pg (25.7-33.7); MCHC 32.7 g/dl (32.0-35.9); MEAN CELL VOLUME 87.9 fl (80-96); MEAN PLT VOLUME 8.4 fl (7.5-11.1); NEUT % 73.8 % (42.8-82.8); PLATELET COUNT 255 K/MM3 (134-434); RBC 4.73 M/mm3 (4.00-5.60); RDW 13.9 % (11.9-15.9); WHITE BLOOD COUNT 6.8 K/mm3 (4.0-10.0)
[2019-10-15 08:40] LABS: BILIRUBIN,TOTAL 0.6 mg/dL (0.2-1); BLOOD UREA NITROGEN 13.4 mg/dL (7-18); CALCIUM 8.3 mg/dL (8.5-10.1); CREATININE 0.9 mg/dL (0.55-1.3); TOT PROT 6.9 g/dl (6.4-8.2)
[2019-10-15] MEDS ORDERED: DEXTROSE 5%-WATER 100 ML IVPB ONE (09:22)
[2019-10-15] MEDS ORDERED: cefTRIAXone SODIUM 1 GM VIAL ONE (09:22)
[2019-10-15] MEDS ORDERED: PT OWN MED DRAWER 7, Y5N ONE (09:22)
[2019-10-15] MEDS: TAMSULOSIN HCL 0.4 MG CAP PO SCH (09:25)
[2019-10-15] MEDS: OXYBUTYNIN CHLORIDE 5 MG TABLET PO SCH (09:25)
[2019-10-15] MEDS: SODIUM CHLORIDE 1,000 ML IV SCH (09:25)
[2019-10-15] MEDS: CEFTRIAXONE 2 GM in DEXTROSE 5%-WATER 100 ML IVPB SCH (09:26)
--- NOTE | 2019-10-15 11:06 | PN ---
Progress Note, Physician History of Present Illness: AWAKE, ALERT OOB IN CHAIR REPORTS OCCASIONAL MILD DYSURIA STILL WITH URINARY INCONTINENCE TEMPS DOWN AFEBRILE WBC IMPROVED WNL AZOTEMIA IMPROVED RENAL SONO NO HN COVID-19(-) ELEVATED LFTS NOTED NO C/O ABDOMINAL PAIN, N/V BC, URINE C/S + KLEBSIELLA - Current Medication List Current Medications: Active Medications Acetaminophen (Tylenol -) 650 mg PO Q6H PRN PRN Reason: PAIN LEVEL 4 - 6 Last Admin: 10/13/19 05:51 Dose: 650 mg Documented by: Heparin Sodium (Porcine) (Heparin -) 5,000 unit SQ TID [facility] Last Admin: 10/15/19 05:59 Dose: 5,000 unit Documented by: Ceftriaxone Sodium 2 gm/ (Dextrose) 100 mls @ 100 mls/hr IVPB DAILY [facility] Last Admin: 10/15/19 09:26 Dose: 100 mls/hr Documented by: Sodium Chloride (Normal Saline -) 1,000 mls @ 100 mls/hr IV ASDIR [facility] Last Admin: 10/15/19 09:25 Dose: 100 mls/hr Documented by: Melatonin (Melatonin) 5 mg PO HS PRN PRN Reason: INSOMNIA Last Admin: 10/14/19 21:59 Dose: 5 mg Documented by: Oxybutynin Chloride (Ditropan -) 5 mg PO DAILY [facility] Last Admin: 10/15/19 09:25 Dose: 5 mg Documented by: Tamsulosin HCl (Flomax -) 0.4 mg PO DAILY@0830 [facility] Last Admin: 10/15/19 09:25 Dose: 0.4 mg Documented by: - Objective Vital Signs: Vital Signs Temperature 98.9 F 10/15/19 06:00 Pulse Rate 62 10/15/19 06:00 Respiratory Rate 18 10/15/19 09:00 Blood Pressure 142/81 10/15/19 06:00 O2 Sat by Pulse Oximetry (%) 98 10/15/19 09:00 Constitutional: Yes: No Distress Eyes: Yes: Conjunctiva Clear Cardiovascular: Yes: Regular Rate and Rhythm, S1, S2 Respiratory: Yes: CTA Bilaterally Gastrointestinal: Yes: Normal Bowel Sounds, Soft. No: Tenderness Edema: No Labs: CBC, BMP 10/15/19 07:51 10/15/19 07:51 Assessment/Plan GRAM NEGATIVE BACTEREMIA/ SEPSIS SECONDARY TO SOURCE KLEBSIELLA UTI URINARY INCONTINENCE FEVER/ LEUKOCYTOSIS IMPROVED AZOTEMIA IMPROVED LACTIC ACIDOSIS RESOLVED ELEVATED LFTS DAY#5 CEFTRIAXONE DOUBT ELEVATED LFTS RELATED TO CEFTRIAXONE BUT WILL SWITCH TO CEFAZOLIN REPEAT LFTS
--- NOTE | 2019-10-15 11:16 | PN ---
Progress Note, Physician History of Present Illness: Pt is a 68 y/o male with BPH (on tamsulosin years ago) and hx of nephrolithiasis with hydronephrosis who presents after syncope. Pt reports watching TV in his bedroom around 10pm and felt weak to get out of bed. When he got up, he walked to the window in the living room then felt like he was shaking, and the next thing he recalls is being on the floor yelling for his . He does not recall how he landed on the floor or if he hit his head. EMS was able to help him in a chair before transport. He reports an episode of urinary incontinence in bed just prior, which has never happened before. He denies fever, chills, nausea, vomiting. He reports intermittent diarrhea, but he has not had it in the last day. - Current Medication List Current Medications: Active Medications Acetaminophen (Tylenol -) 650 mg PO Q6H PRN PRN Reason: PAIN LEVEL 4 - 6 Last Admin: 10/13/19 05:51 Dose: 650 mg Documented by: Heparin Sodium (Porcine) (Heparin -) 5,000 unit SQ TID [facility] Last Admin: 10/15/19 05:59 Dose: 5,000 unit Documented by: Sodium Chloride (Normal Saline -) 1,000 mls @ 100 mls/hr IV ASDIR [facility] Last Admin: 10/15/19 09:25 Dose: 100 mls/hr Documented by: Cefazolin Sodium 1 gm/ (Dextrose) 50 mls @ 100 mls/hr IVPB Q8H-IV [facility] Melatonin (Melatonin) 5 mg PO HS PRN PRN Reason: INSOMNIA Last Admin: 10/14/19 21:59 Dose: 5 mg Documented by: Oxybutynin Chloride (Ditropan -) 5 mg PO DAILY [facility] Last Admin: 10/15/19 09:25 Dose: 5 mg Documented by: Tamsulosin HCl (Flomax -) 0.4 mg PO DAILY@0830 [facility] Last Admin: 10/15/19 09:25 Dose: 0.4 mg Documented by: - Objective Vital Signs: Vital Signs Temperature 99.1 F 10/15/19 10:00 Pulse Rate 67 10/15/19 10:00 Respiratory Rate 18 10/15/19 10:00 Blood Pressure 148/83 10/15/19 10:00 O2 Sat by Pulse Oximetry (%) 98 10/15/19 10:00 Eyes: Yes: WNL, Conjunctiva Clear, EOM Intact HENT: Yes: WNL, Atraumatic, Normocephalic Neck: Yes: WNL, Supple, Trachea Midline Cardiovascular: Yes: WNL, Regular Rate and Rhythm Respiratory: Yes: WNL, Regular, CTA Bilaterally Gastrointestinal: Yes: WNL, Normal Bowel Sounds Genitourinary: Yes: WNL Musculoskeletal: Yes: WNL Extremities: Yes: WNL Edema: No Integumentary: Yes: WNL Neurological: Yes: WNL, Alert, Oriented ...Motor Strength: WNL Psychiatric: Yes: WNL Labs: CBC, BMP 10/15/19 07:51 10/15/19 07:51 Problem List - Problems (1) TRISTON (acute kidney injury) Code(s): N17.9 - ACUTE KIDNEY FAILURE, UNSPECIFIED (2) BPH (benign prostatic hyperplasia) Code(s): N40.0 - BENIGN PROSTATIC HYPERPLASIA WITHOUT LOWER URINRY TRACT SYMP (3) Carotid stenosis Code(s): I65.29 - OCCLUSION AND STENOSIS OF UNSPECIFIED CAROTID ARTERY (4) Hyperbilirubinemia Code(s): E80.6 - OTHER DISORDERS OF BILIRUBIN METABOLISM (5) Lactic acid acidosis Code(s): E87.2 - ACIDOSIS (6) Leukocytosis Code(s): D72.829 - ELEVATED WHITE BLOOD CELL COUNT, UNSPECIFIED (7) Prophylactic measure Code(s): Z29.9 - ENCOUNTER FOR PROPHYLACTIC MEASURES, UNSPECIFIED (8) Sepsis Code(s): A41.9 - SEPSIS, UNSPECIFIED ORGANISM Qualifiers: Sepsis type: sepsis due to unspecified organism Sepsis acute organ dysfunction status: unspecified Qualified Code(s): A41.9 - Sepsis, unspecified organism (9) Suspected COVID-19 virus infection Code(s): Z20.828 - CONTACT W AND EXPOSURE TO OTH VIRAL COMMUNICABLE DISEASES (10) Syncope and collapse Code(s): R55 - SYNCOPE AND COLLAPSE (11) Urinary tract stone Code(s): N20.9 - URINARY CALCULUS, UNSPECIFIED Qualifiers: Urinary calculus location: ureter Qualified Code(s): N20.1 - Calculus of ureter Assessment/Plan changes in MS denies syncope right carotid artery stenosis urosepsis leukocytosis lactic acidosis echo: normal LVEF; abnormal diastolic compliance; mildly dilated ascending aorta TNI negative Plan telemetry Cardiac w/u if not done recently when stable f/u regarding carotid findings; CTA recommended aggressive control of lipids and BP mildly elevated TSH; f/u free T4.
--- NOTE | 2019-10-15 12:48 | PN ---
Progress Note, Physician History of Present Illness: Pt seen and examined at bedside. He is awake and alert. He denies shortness of breath. He denies dysuria or hematuria. - Current Medication List Current Medications: Active Medications Acetaminophen (Tylenol -) 650 mg PO Q6H PRN PRN Reason: PAIN LEVEL 4 - 6 Last Admin: 10/13/19 05:51 Dose: 650 mg Documented by: Heparin Sodium (Porcine) (Heparin -) 5,000 unit SQ TID [facility] Last Admin: 10/15/19 05:59 Dose: 5,000 unit Documented by: Sodium Chloride (Normal Saline -) 1,000 mls @ 100 mls/hr IV ASDIR [facility] Last Admin: 10/15/19 09:25 Dose: 100 mls/hr Documented by: Cefazolin Sodium 1 gm/ (Dextrose) 50 mls @ 100 mls/hr IVPB Q8H-IV [facility] Melatonin (Melatonin) 5 mg PO HS PRN PRN Reason: INSOMNIA Last Admin: 10/14/19 21:59 Dose: 5 mg Documented by: Oxybutynin Chloride (Ditropan -) 5 mg PO DAILY [facility] Last Admin: 10/15/19 09:25 Dose: 5 mg Documented by: Tamsulosin HCl (Flomax -) 0.4 mg PO DAILY@0830 [facility] Last Admin: 10/15/19 09:25 Dose: 0.4 mg Documented by: - Objective Vital Signs: Vital Signs Temperature 99.1 F 10/15/19 10:00 Pulse Rate 67 10/15/19 10:00 Respiratory Rate 18 10/15/19 10:00 Blood Pressure 148/83 10/15/19 10:00 O2 Sat by Pulse Oximetry (%) 98 10/15/19 10:00 Constitutional: Yes: Calm Eyes: Yes: Conjunctiva Clear HENT: Yes: Atraumatic Neck: Yes: Supple Cardiovascular: Yes: S1, S2 Respiratory: Yes: CTA Bilaterally Gastrointestinal: Yes: Normal Bowel Sounds, Soft Genitourinary: Yes: WNL Musculoskeletal: Yes: WNL Edema: No Neurological: Yes: Oriented Psychiatric: Yes: Oriented Labs: CBC, BMP 10/15/19 07:51 10/15/19 07:51 Assessment/Plan Current Medications Generic Name Dose Route Start Last Admin Trade Name Freq PRN Reason Stop Dose Admin Acetaminophen 650 mg 10/11/19 14:00 10/13/19 05:51 Tylenol - PO 650 mg Q6H PRN Administration PAIN LEVEL 4 - 6 Heparin Sodium (Porcine) 5,000 unit 10/11/19 06:00 10/15/19 05:59 Heparin - SQ 5,000 unit TID [facility] Administration Sodium Chloride 1,000 mls @ 100 mls/hr 10/15/19 08:00 10/15/19 09:25 Normal Saline - IV 100 mls/hr ASDIR [facility] Administration Cefazolin Sodium 1 gm/ 50 mls @ 100 mls/hr 10/15/19 18:00 Dextrose IVPB Q8H-IV [facility] Melatonin 5 mg 10/11/19 23:16 10/14/19 21:59 Melatonin PO 5 mg HS PRN Administration INSOMNIA Oxybutynin Chloride 5 mg 10/12/19 15:00 10/15/19 09:25 Ditropan - PO 5 mg DAILY [facility] Administration Tamsulosin HCl 0.4 mg 10/11/19 11:24 10/15/19 09:25 Flomax - PO 0.4 mg DAILY@0830 [facility] Administration Impression 1. TRISTON 2. sepsis 3. syncope 4. bph 5. lactic acidosis 6. elevated LFT Plan - renal function stabilizing - give saline at 75 cc per hour before cta - discussed regine risk - LFTs continue to rise - encourage free water intake - abx per primary team
--- NOTE | 2019-10-15 16:22 | PN ---
Physical Exam: SUBJECTIVE: Patient seen and examined at the bedside. sitting up in the chair. comfortable at rest. OBJECTIVE: Patient is a 68 y/o male with BPH and hx of nephrolithiasis with hydronephrosis who presents to the ED on 10/11/2019 after a syncopal episode. Pt was febrile and hypotensive with leukocytosis and positive UA. He is admitted for sepsis 2/2 acute cystitis. Vital Signs Period Temp Pulse Resp BP Sys/Castro Pulse Ox Last 24 Hr 98.8 F-99.6 F 62-68 14-20 118-148/62-92 94-98 GENERAL: The patient is awake, alert, and fully oriented, in no acute distress. HEAD: Normal with no signs of trauma. EYES: PERRL, extraocular movements intact, sclera anicteric, conjunctiva clear. No ptosis. ENT: Ears normal, nares patent, oropharynx clear without exudates, moist mucous membranes. NECK: Trachea midline, full range of motion, supple. LUNGS: Breath sounds equal, clear to auscultation bilaterally HEART: Regular rate and rhythm ABDOMEN: Soft, nontender, nondistended, normoactive bowel sounds EXTREMITIES: no edema. NEUROLOGICAL: Normal speech, gait steady PSYCH: Normal mood, normal affect. SKIN: Warm, dry, normal turgor, no rashes or lesions noted Laboratory Results - last 24 hr 10/11/19 10/12/19 10/14/19 15:20 05:42 05:36 WBC RBC Hgb Hct MCV MCH MCHC RDW Plt Count MPV Absolute Neuts (auto) Neutrophils % Lymphocytes % Monocytes % Eosinophils % Basophils % Nucleated RBC % Sodium 138 140 138 Potassium 4.1 3.8 4.0 Chloride 106 107 107 Carbon Dioxide 26 27 21 Anion Gap 6 L 6 L 11 BUN 21.1 H 19.4 H 14.5 Creatinine 1.5 H 1.3 1.0 Est GFR (CKD-EPI)AfAm 54.27 64.52 88.61 Est GFR (CKD-EPI)NonAf 46.83 55.67 76.45 Random Glucose 99 90 88 Calcium 8.8 8.1 L 8.1 L Magnesium 2.1 2.2 Total Bilirubin 1.8 H 0.6 AST 21 86 H ALT 27 74 H Alkaline Phosphatase 81 149 H Troponin I < 0.02 < 0.02 Total Protein 6.2 L 6.2 L Albumin 2.8 L 2.7 L TSH 2.89 D Free T4 1.21 H 10/15/19 10/15/19 07:51 07:51 WBC 6.8 RBC 4.73 Hgb 13.6 Hct 41.6 MCV 87.9 MCH 28.8 MCHC 32.7 RDW 13.9 Plt Count 255 D MPV 8.4 D Absolute Neuts (auto) 5.0 Neutrophils % 73.8 Lymphocytes % 11.2 D Monocytes % 12.0 H Eosinophils % 2.4 Basophils % 0.6 Nucleated RBC % 0 Sodium 138 Potassium 4.0 Chloride 109 H Carbon Dioxide 19 L Anion Gap 10 BUN 13.4 Creatinine 0.9 Est GFR (CKD-EPI)AfAm 100.65 Est GFR (CKD-EPI)NonAf 86.84 Random Glucose 106 Calcium 8.3 L Magnesium Total Bilirubin 0.6 AST 195 H ALT 183 H Alkaline Phosphatase 156 H Troponin I Total Protein 6.9 Albumin 3.0 L TSH Free T4 Active Medications Generic Name Dose Route Start Last Admin Trade Name Freq PRN Reason Stop Dose Admin Acetaminophen 650 mg 10/11/19 14:00 10/13/19 05:51 Tylenol - PO 650 mg Q6H PRN Administration PAIN LEVEL 4 - 6 Heparin Sodium (Porcine) 5,000 unit 10/11/19 06:00 10/15/19 05:59 Heparin - SQ 5,000 unit TID [facility] Administration Sodium Chloride 1,000 mls @ 100 mls/hr 10/15/19 08:00 10/15/19 09:25 Normal Saline - IV 100 mls/hr ASDIR [facility] Administration Cefazolin Sodium 1 gm/ 50 mls @ 100 mls/hr 10/15/19 18:00 Dextrose IVPB Q8H-IV [facility] Melatonin 5 mg 10/11/19 23:16 10/14/19 21:59 Melatonin PO 5 mg HS PRN Administration INSOMNIA Oxybutynin Chloride 5 mg 10/12/19 15:00 10/15/19 09:25 Ditropan - PO 5 mg DAILY [facility] Administration Tamsulosin HCl 0.4 mg 10/11/19 11:24 10/15/19 09:25 Flomax - PO 0.4 mg DAILY@0830 [facility] Administration ASSESSMENT/PLAN: Problem List - Problems (1) Gram-negative bacteremia Assessment/Plan: bacteremia seconday to source/Kleb in UC and BC x 1 bottle. afebrile, leukocytosis improved in last 3 days lactic acidosis resolved On Cetriaxone 2 gram Code(s): R78.81 - BACTEREMIA (2) TRISTON (acute kidney injury) Assessment/Plan: TRISTON improving. Renal following Code(s): N17.9 - ACUTE KIDNEY FAILURE, UNSPECIFIED (3) BPH (benign prostatic hyperplasia) Assessment/Plan: on flomax. monitor output Code(s): N40.0 - BENIGN PROSTATIC HYPERPLASIA WITHOUT LOWER URINRY TRACT SYMP (4) Dehydration Assessment/Plan: encourage PO intake. kidney function improved. Code(s): E86.0 - DEHYDRATION (5) Hyperbilirubinemia Assessment/Plan: resolved Code(s): E80.6 - OTHER DISORDERS OF BILIRUBIN METABOLISM (6) Lactic acid acidosis Assessment/Plan: resolved Code(s): E87.2 - ACIDOSIS (7) Leukocytosis Assessment/Plan: improved in last 3 days. on ceftriaxone 2 grams but switched to cefazolin in case ceftriaxone is contributing to elevated LFTs Code(s): D72.829 - ELEVATED WHITE BLOOD CELL COUNT, UNSPECIFIED (8) Prophylactic measure Code(s): Z29.9 - ENCOUNTER FOR PROPHYLACTIC MEASURES, UNSPECIFIED (9) Sepsis secondary to UTI Code(s): A41.9 - SEPSIS, UNSPECIFIED ORGANISM; N39.0 - URINARY TRACT INFECTION, SITE NOT SPECIFIED (10) Syncope and collapse Assessment/Plan: no further episodes. likely in setting of acute infection. ID following. Code(s): R55 - SYNCOPE AND COLLAPSE (11) Carotid stenosis Assessment/Plan: syncopal episode with near collapse small to moderate plaque to RCA had neck CTA today, awaiting official results vascular consulted Code(s): I65.29 - OCCLUSION AND STENOSIS OF UNSPECIFIED CAROTID ARTERY (12) Incontinence of urine Assessment/Plan: c/o incontinence/urgency on flomax bladder scan to assess PVR Code(s): R32 - UNSPECIFIED URINARY INCONTINENCE (13) LFT elevation Assessment/Plan: LfTs elevated for liver ultrasound - pt/inr in a.m. - hepatitis panel GI consulted Code(s): R79.89 - OTHER SPECIFIED ABNORMAL FINDINGS OF BLOOD CHEMISTRY (14) DVT prophylaxis Assessment/Plan: heparin TID Code(s): Z29.9 - ENCOUNTER FOR PROPHYLACTIC MEASURES, UNSPECIFIED Visit type - Emergency Visit Emergency Visit: Yes ED Registration Date: 10/11/19 Care time: The patient presented to the Emergency Department on the above date and was hospitalized for further evaluation of their emergent condition. - New Patient This patient is new to me today: No - Critical Care Critical Care patient: No - Discharge Referral Referred to [facility] Med [facility] No - Medication Review Med list reviewed for High Risk Meds patients 65 and older: Yes
--- NOTE | 2019-10-15 16:27 | CONSULT ---
- Consultation REQUESTING PROVIDER: CONSULT REQUEST: We have been asked to surgically evaluate this patient for carotid stenosis PCP:Aldair Thornton NP HISTORY OF PRESENT ILLNESS: 68 y/o M w/ no known PMHx (has not seen a PCP in >20 years) admitted after fall/loc at home. Vascular consulted for carotid stenosis. Pt reports he has never had a carotid duplex before. Denies any history of amaurosis fugax, ue/le weakness, dysphasia/dysarthria, known prior cvas. PMHx: unknown PSHx: denies Allergies Allergy/AdvReac Type Severity Reaction Status Date / Time No Known Allergies Allergy Verified 10/10/19 21:20 REVIEW OF SYSTEMS: CONSTITUTIONAL: Absent: fever, chills CARDIOVASCULAR: Absent: chest pain RESPIRATORY: Absent: cough, shortness of breath GASTROINTESTINAL: Absent: abdominal pain, abdominal distension PHYSICAL EXAM: GENERAL: Awake, alert, and fully oriented, in no acute distress. HEAD: Normal with no signs of trauma. LUNGS: No accessory muscle use on RA ABDOMEN: Soft, nontender, not distended. 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 b/l ue 5/5 biceps/triceps, 5/5 dorsi/plantarflexion. 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 Vital Signs Temperature 98.9 F 10/15/19 14:00 Pulse Rate 63 10/15/19 14:00 Respiratory Rate 14 10/15/19 14:00 Blood Pressure 118/62 10/15/19 14:00 O2 Sat by Pulse Oximetry (%) 98 10/15/19 10:00 Lab Results WBC 6.8 K/mm3 (4.0-10.0) 10/15/19 07:51 RBC 4.73 M/mm3 (4.00-5.60) 10/15/19 07:51 Hgb 13.6 GM/dL (11.7-16.9) 10/15/19 07:51 Hct 41.6 % (35.4-49) 10/15/19 07:51 MCV 87.9 fl (80-96) 10/15/19 07:51 MCHC 32.7 g/dl (32.0-35.9) 10/15/19 07:51 RDW 13.9 % (11.9-15.9) 10/15/19 07:51 Plt Count 255 K/MM3 (134-434) D 10/15/19 07:51 Sodium 138 mmol/L (136-145) 10/15/19 07:51 Potassium 4.0 mmol/L (3.5-5.1) 10/15/19 07:51 Chloride 109 mmol/L (98-107) H 10/15/19 07:51 Carbon Dioxide 19 mmol/L (21-32) L 10/15/19 07:51 Anion Gap 10 MMOL/L (8-16) 10/15/19 07:51 BUN 13.4 mg/dL (7-18) 10/15/19 07:51 Creatinine 0.9 mg/dL (0.55-1.3) 10/15/19 07:51 Random Glucose 106 mg/dL (74-106) 10/15/19 07:51 Calcium 8.3 mg/dL (8.5-10.1) L 10/15/19 07:[address] (10/11/19): Chronic lacunar infarct in the right basal ganglia, posteriorly. Carotid duplex (10/11/19): Small to moderate size plaque at the right common carotid bifurcation with hemodynamically significant stenosis of 50-69% based on the obtained peak systolic velocities. NASCET criteria possibly due to tortuosity of the proximal right internal carotid artery. There is also suggestion of tiny plaques at the left common carotid bifurcation/bulb without evidence of hemodynamically significant stenosis. A/P: 68 y/o M w/ no known PMHx (has not seen a PCP in >20 years) admitted after fall/loc at home. Vascular consulted for carotid stenosis. sxs do not appear to be consistent with a tia/cva cta ordered by medical team Duplex reviewed with attending Dr Coronado recommend f/u in the office in 6 months for surveillance duplex d/w attending Dr Coronado
[2019-10-15] MEDS ORDERED: ceFAZolin SODIUM 1 GM VIAL ONE (17:00)
[2019-10-15] MEDS ORDERED: DEXTROSE 5%-WATER - 50 ML IVPB ONE (17:00)
[2019-10-15] MEDS: CEFAZOLIN 1 GM in DEXTROSE 5%-WATER - 50 ML IVPB SCH (17:07)
[2019-10-15] MEDS: MELATONIN 5 MG TABLETS PO PRN (21:34)
[2019-10-16] MEDS ORDERED: DEXTROSE 5%-WATER - 50 ML IVPB ONE ×3 (01:29→17:04)
[2019-10-16] MEDS ORDERED: ceFAZolin SODIUM 1 GM VIAL ONE ×3 (01:29→17:04)
[2019-10-16] MEDS: CEFAZOLIN 1 GM in DEXTROSE 5%-WATER - 50 ML IVPB SCH ×3 (01:33→17:19)
[2019-10-16] MEDS: SODIUM CHLORIDE 1,000 ML IV SCH ×3 (01:34→14:35)
[2019-10-16] MEDS: HEPARIN NA (PORCINE) 5,000 UNITS/ML 1ML VIAL SQ SCH ×3 (05:58→21:21)
--- NOTE | 2019-10-16 08:12 | CON.GI ---
Consult Consult Specialty:: GI Referred by:: Hospitalist Service Reason for Consultation:: Abnormal LFTs - History of Present Illness Chief Complaint: Admitted 10/09 due to syncope History of Present Illness: 68M admitted through [facility] ER for evaluation of syncope. Being treated for UIT. Called to evaluate abnormal liver chemistries. Denies known hiostory of liver disease. Denies alcohol use. No N/V/Abdominal pain. Noted to have klebsiella bacteremia and in urine. Isolated hyperbilirubinemia on admission. Was on ceftriaxone. 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 Father: : alcoholic complications. No siblings. No children Review of Systems - Review of Systems Constitutional: denies: Chills Cardiovascular: denies: Chest Pain Respiratory: denies: Cough, SOB Gastrointestinal: denies: Abdominal Pain, Melena, Nausea, Rectal Bleeding, Vomiting, Vomiting Blood Genitourinary: reports: Frequency Physical Exam-GI Vital Signs: Vital Signs Temperature 98.5 F 10/16/19 06:00 Pulse Rate 65 10/16/19 06:00 Respiratory Rate 18 10/16/19 06:00 Blood Pressure 135/83 10/16/19 06:00 O2 Sat by Pulse Oximetry (%) 93 L 10/15/19 22:00 Constitutional: Yes: Calm Eyes: No: Sclera Icterus Cardiovascular: Yes: Regular Rate and Rhythm. No: Murmur Respiratory: Yes: CTA Bilaterally Gastrointestinal Inspection: No: Distention, Scars ...Auscultate: Yes: Normoactive Bowel Sounds ...Palpate: Yes: Soft. No: Hepatomegaly, Splenomegaly, Tenderness ...Percussion: No: Tympanitic Edema: No (No LE edema) Neurological: Yes: Alert Labs: CBC, BMP 10/15/19 07:51 10/15/19 07:51 Problem List - Problems (1) Abnormal liver function tests Assessment/Plan: Suspect from medication regimen durting admission. Asymptoimatic Isolated hyperbilirubinemia on admission: unclear if predominantly direct or indirect Advise: Avoid hepatotoxic agents, Discontinued tylenol Await abdominal US Monitor liver chemistries Hepatitis A/B serologies are pending, check HCV antibody (HCV diagnostic) Code(s): R94.5 - ABNORMAL RESULTS OF LIVER FUNCTION STUDIES
[2019-10-16] MEDS ORDERED: PT OWN MED DRAWER 7, Y5N ONE (08:49)
[2019-10-16] MEDS: TAMSULOSIN HCL 0.4 MG CAP PO SCH (09:12)
[2019-10-16] MEDS: OXYBUTYNIN CHLORIDE 5 MG TABLET PO SCH (09:20)
--- NOTE | 2019-10-16 11:36 | PN ---
Progress Note, Physician History of Present Illness: Pt is a 68 y/o male with BPH (on tamsulosin years ago) and hx of nephrolithiasis with hydronephrosis who presents after syncope. Pt reports watching TV in his bedroom around 10pm and felt weak to get out of bed. When he got up, he walked to the window in the living room then felt like he was shaking, and the next thing he recalls is being on the floor yelling for his . He does not recall how he landed on the floor or if he hit his head. EMS was able to help him in a chair before transport. He reports an episode of urinary incontinence in bed just prior, which has never happened before. He denies fever, chills, nausea, vomiting. He reports intermittent diarrhea, but he has not had it in the last day. - Current Medication List Current Medications: Active Medications Heparin Sodium (Porcine) (Heparin -) 5,000 unit SQ TID [facility] Last Admin: 10/16/19 05:58 Dose: 5,000 unit Documented by: Sodium Chloride (Normal Saline -) 1,000 mls @ 100 mls/hr IV ASDIR [facility] Last Admin: 10/16/19 09:12 Dose: 100 mls/hr Documented by: Cefazolin Sodium 1 gm/ (Dextrose) 50 mls @ 100 mls/hr IVPB Q8H-IV [facility] Last Admin: 10/16/19 09:13 Dose: 100 mls/hr Documented by: Melatonin (Melatonin) 5 mg PO HS PRN PRN Reason: INSOMNIA Last Admin: 10/15/19 21:34 Dose: 5 mg Documented by: Oxybutynin Chloride (Ditropan -) 5 mg PO DAILY [facility] Last Admin: 10/16/19 09:20 Dose: 5 mg Documented by: Tamsulosin HCl (Flomax -) 0.4 mg PO DAILY@0830 [facility] Last Admin: 10/16/19 09:12 Dose: 0.4 mg Documented by: - Objective Vital Signs: Vital Signs Temperature 98.3 F 10/16/19 09:00 Pulse Rate 61 10/16/19 09:00 Respiratory Rate 18 10/16/19 09:00 Blood Pressure 135/79 10/16/19 09:00 O2 Sat by Pulse Oximetry (%) 95 10/16/19 09:00 Eyes: Yes: WNL, Conjunctiva Clear, EOM Intact HENT: Yes: WNL, Atraumatic, Normocephalic Neck: Yes: WNL, Supple, Trachea Midline Cardiovascular: Yes: WNL, Regular Rate and Rhythm Respiratory: Yes: WNL, Regular, CTA Bilaterally Gastrointestinal: Yes: WNL, Normal Bowel Sounds Genitourinary: Yes: WNL Musculoskeletal: Yes: WNL Extremities: Yes: WNL Edema: No Integumentary: Yes: WNL Neurological: Yes: WNL, Alert, Oriented ...Motor Strength: WNL Psychiatric: Yes: WNL Labs: CBC, BMP 10/15/19 07:51 10/15/19 07:51 Problem List - Problems (1) TRISTON (acute kidney injury) Code(s): N17.9 - ACUTE KIDNEY FAILURE, UNSPECIFIED (2) BPH (benign prostatic hyperplasia) Code(s): N40.0 - BENIGN PROSTATIC HYPERPLASIA WITHOUT LOWER URINRY TRACT SYMP (3) Carotid stenosis Code(s): I65.29 - OCCLUSION AND STENOSIS OF UNSPECIFIED CAROTID ARTERY (4) Hyperbilirubinemia Code(s): E80.6 - OTHER DISORDERS OF BILIRUBIN METABOLISM (5) Lactic acid acidosis Code(s): E87.2 - ACIDOSIS (6) Leukocytosis Code(s): D72.829 - ELEVATED WHITE BLOOD CELL COUNT, UNSPECIFIED (7) Prophylactic measure Code(s): Z29.9 - ENCOUNTER FOR PROPHYLACTIC MEASURES, UNSPECIFIED (8) Sepsis Code(s): A41.9 - SEPSIS, UNSPECIFIED ORGANISM Qualifiers: Sepsis type: sepsis due to unspecified organism Sepsis acute organ dysfunction status: unspecified Qualified Code(s): A41.9 - Sepsis, unspecified organism (9) Suspected COVID-19 virus infection Code(s): Z20.828 - CONTACT W AND EXPOSURE TO OTH VIRAL COMMUNICABLE DISEASES (10) Syncope and collapse Code(s): R55 - SYNCOPE AND COLLAPSE (11) Urinary tract stone Code(s): N20.9 - URINARY CALCULUS, UNSPECIFIED Qualifiers: Urinary calculus location: ureter Qualified Code(s): N20.1 - Calculus of ureter Assessment/Plan changes in MS denies syncope right carotid artery stenosis urosepsis leukocytosis lactic acidosis echo: normal LVEF; abnormal diastolic compliance; mildly dilated ascending aorta TNI negative Plan telemetry Cardiac w/u if not done recently when stable f/u regarding carotid findings; CTA recommended aggressive control of lipids and BP mildly elevated TSH; f/u free T4.
[2019-10-16 13:34] LABS: BASO % 0.7 % (0-2.0); EOS % 2.4 % (0-4.5); HEMATOCRIT 44.8 % (35.4-49); HEMOGLOBIN 14.8 GM/dL (11.7-16.9); LYMPH % 14.4 % (8-40); MCH 29.5 pg (25.7-33.7); MCHC 33.1 g/dl (32.0-35.9); MEAN PLT VOLUME 8.6 fl (7.5-11.1); MONO % 13.1 % (3.8-10.2); NEUT % 69.4 % (42.8-82.8); PLATELET COUNT 300 K/MM3 (134-434); RBC 5.03 M/mm3 (4.00-5.60); RDW 14.3 % (11.9-15.9); WHITE BLOOD COUNT 6.9 K/mm3 (4.0-10.0)
[2019-10-16 13:42] LABS: INR 1.17 (0.83-1.09); PROTHROMBIN TIME (PATIENT) 13.8 SEC (9.7-13.0)
[2019-10-16 14:02] LABS: ALBUMIN 3.3 g/dl (3.4-5.0); BILIRUBIN,TOTAL 0.5 mg/dL (0.2-1); BLOOD UREA NITROGEN 14.2 mg/dL (7-18); CALCIUM 8.8 mg/dL (8.5-10.1); POTASSIUM 4.3 mmol/L (3.5-5.1); TOT PROT 7.6 g/dl (6.4-8.2)
--- NOTE | 2019-10-16 14:26 | PN ---
Progress Note, Physician History of Present Illness: AWAKE, ALERT SEATED IN BED NO C/O DYSURIA TEMPS DOWN AFEBRILE WBC IMPROVED WNL AZOTEMIA IMPROVED RENAL SONO NO HN COVID-19(-) ELEVATED LFTS NOTED NO C/O ABDOMINAL PAIN, N/V BC, URINE C/S + KLEBSIELLA - Current Medication List Current Medications: Active Medications Heparin Sodium (Porcine) (Heparin -) 5,000 unit SQ TID [facility] Last Admin: 10/16/19 13:51 Dose: 5,000 unit Documented by: Sodium Chloride (Normal Saline -) 1,000 mls @ 100 mls/hr IV ASDIR [facility] Last Admin: 10/16/19 09:12 Dose: 100 mls/hr Documented by: Cefazolin Sodium 1 gm/ (Dextrose) 50 mls @ 100 mls/hr IVPB Q8H-IV [facility] Last Admin: 10/16/19 09:13 Dose: 100 mls/hr Documented by: Melatonin (Melatonin) 5 mg PO HS PRN PRN Reason: INSOMNIA Last Admin: 10/15/19 21:34 Dose: 5 mg Documented by: Oxybutynin Chloride (Ditropan -) 5 mg PO DAILY [facility] Last Admin: 10/16/19 09:20 Dose: 5 mg Documented by: Tamsulosin HCl (Flomax -) 0.4 mg PO DAILY@0830 [facility] Last Admin: 10/16/19 09:12 Dose: 0.4 mg Documented by: - Objective Vital Signs: Vital Signs Temperature 98.3 F 10/16/19 09:00 Pulse Rate 61 10/16/19 09:00 Respiratory Rate 18 10/16/19 09:00 Blood Pressure 135/79 10/16/19 09:00 O2 Sat by Pulse Oximetry (%) 95 10/16/19 09:00 Constitutional: Yes: No Distress Eyes: Yes: Conjunctiva Clear Cardiovascular: Yes: Regular Rate and Rhythm, S1, S2 Respiratory: Yes: CTA Bilaterally Gastrointestinal: Yes: Normal Bowel Sounds, Soft. No: Tenderness Edema: No Labs: CBC, BMP 10/16/19 11:43 10/16/19 11:43 INR, PTT INR 1.17 (0.83-1.09) H 10/16/19 11:43 Assessment/Plan GRAM NEGATIVE BACTEREMIA/ SEPSIS SECONDARY TO SOURCE KLEBSIELLA UTI URINARY INCONTINENCE FEVER/ LEUKOCYTOSIS IMPROVED AZOTEMIA IMPROVED LACTIC ACIDOSIS RESOLVED ELEVATED LFTS DAY#6 IV ANIBIOTICS WILL SWITCH TO PO ANTIBIOTICS AM GI EVALUATION APPRECIATED
--- NOTE | 2019-10-16 14:51 | PN ---
Progress Note, Physician History of Present Illness: Pt seen and examined at bedside. He is awake and alert. He denies shortness of breath. He had the cta. - Current Medication List Current Medications: Active Medications Heparin Sodium (Porcine) (Heparin -) 5,000 unit SQ TID [facility] Last Admin: 10/16/19 13:51 Dose: 5,000 unit Documented by: Cefazolin Sodium 1 gm/ (Dextrose) 50 mls @ 100 mls/hr IVPB Q8H-IV [facility] Last Admin: 10/16/19 09:13 Dose: 100 mls/hr Documented by: Melatonin (Melatonin) 5 mg PO HS PRN PRN Reason: INSOMNIA Last Admin: 10/15/19 21:34 Dose: 5 mg Documented by: Oxybutynin Chloride (Ditropan -) 5 mg PO DAILY [facility] Last Admin: 10/16/19 09:20 Dose: 5 mg Documented by: Tamsulosin HCl (Flomax -) 0.4 mg PO DAILY@0830 [facility] Last Admin: 10/16/19 09:12 Dose: 0.4 mg Documented by: - Objective Vital Signs: Vital Signs Temperature 98.4 F 10/16/19 14:00 Pulse Rate 79 10/16/19 14:00 Respiratory Rate 14 10/16/19 14:00 Blood Pressure 119/75 10/16/19 14:00 O2 Sat by Pulse Oximetry (%) 95 10/16/19 09:00 Constitutional: Yes: Calm Eyes: Yes: Conjunctiva Clear HENT: Yes: Atraumatic Neck: Yes: Supple Cardiovascular: Yes: S1, S2 Respiratory: Yes: CTA Bilaterally Gastrointestinal: Yes: Normal Bowel Sounds, Soft Genitourinary: Yes: WNL Musculoskeletal: Yes: WNL Edema: No Neurological: Yes: Oriented Psychiatric: Yes: Oriented Labs: CBC, BMP 10/16/19 11:43 10/16/19 11:43 INR, PTT INR 1.17 (0.83-1.09) H 10/16/19 11:43 Assessment/Plan Current Medications Generic Name Dose Route Start Last Admin Trade Name Freq PRN Reason Stop Dose Admin Heparin Sodium (Porcine) 5,000 unit 10/11/19 06:00 10/16/19 13:51 Heparin - SQ 5,000 unit TID [facility] Administration Cefazolin Sodium 1 gm/ 50 mls @ 100 mls/hr 10/15/19 18:00 10/16/19 09:13 Dextrose IVPB 100 mls/hr Q8H-IV [facility] Administration Melatonin 5 mg 10/11/19 23:16 10/15/19 21:34 Melatonin PO 5 mg HS PRN Administration INSOMNIA Oxybutynin Chloride 5 mg 10/12/19 15:00 10/16/19 09:20 Ditropan - PO 5 mg DAILY [facility] Administration Tamsulosin HCl 0.4 mg 10/11/19 11:24 10/16/19 09:12 Flomax - PO 0.4 mg DAILY@0830 [facility] Administration Impression 1. TRISTON 2. sepsis 3. syncope 4. bph 5. lactic acidosis 6. elevated LFT Plan - pt had cta - can stop fluids - gi input appreciated - trend lfts - follow ultrasound - repeat abalone diver in am
--- NOTE | 2019-10-16 17:52 | PN ---
Physical Exam: SUBJECTIVE: Patient seen and examined OBJECTIVE: Patient is a 68 y/o male with BPH and hx of nephrolithiasis with hydronephrosis who presents to the ED on 10/11/2019 after a syncopal episode. Pt was febrile and hypotensive with leukocytosis and positive UA. He is admitted for sepsis 2/2 acute cystitis. Vital Signs Period Temp Pulse Resp BP Sys/Castro Pulse Ox Last 24 Hr 98.3 F-99.8 F 61-79 14-18 119-150/75-83 93-95 GENERAL: The patient is awake, alert, and fully oriented, in no acute distress. HEAD: Normal with no signs of trauma. EYES: PERRL, extraocular movements intact, sclera anicteric, conjunctiva clear. No ptosis. ENT: Ears normal, nares patent, oropharynx clear without exudates, moist mucous membranes. NECK: Trachea midline, full range of motion, supple. LUNGS: Breath sounds equal, clear to auscultation bilaterally HEART: Regular rate and rhythm ABDOMEN: Soft, nontender, nondistended, normoactive bowel sounds EXTREMITIES: no edema. NEUROLOGICAL: Normal speech, gait steady PSYCH: Normal mood, normal affect. SKIN: Warm, dry, normal turgor, no rashes or lesions noted Laboratory Results - last 24 hr 10/15/19 10/16/19 10/16/19 07:51 11:43 11:43 WBC 6.9 RBC 5.03 Hgb 14.8 Hct 44.8 MCV 89.0 MCH 29.5 MCHC 33.1 RDW 14.3 Plt Count 300 MPV 8.6 Absolute Neuts (auto) 4.8 Neutrophils % 69.4 Lymphocytes % 14.4 D Monocytes % 13.1 H Eosinophils % 2.4 Basophils % 0.7 Nucleated RBC % 0 PT with INR INR Sodium 138 Potassium 4.3 Chloride 107 Carbon Dioxide 24 Anion Gap 7 L BUN 14.2 Creatinine 1.0 Est GFR (CKD-EPI)AfAm 88.61 Est GFR (CKD-EPI)NonAf 76.45 Random Glucose 86 Calcium 8.8 Total Bilirubin 0.5 AST 146 H ALT 182 H Alkaline Phosphatase 162 H Total Protein 7.6 Albumin 3.3 L Hepatitis A Ab Total Negative 10/16/19 11:43 WBC RBC Hgb Hct MCV MCH MCHC RDW Plt Count MPV Absolute Neuts (auto) Neutrophils % Lymphocytes % Monocytes % Eosinophils % Basophils % Nucleated RBC % PT with INR 13.80 H INR 1.17 H Sodium Potassium Chloride Carbon Dioxide Anion Gap BUN Creatinine Est GFR (CKD-EPI)AfAm Est GFR (CKD-EPI)NonAf Random Glucose Calcium Total Bilirubin AST ALT Alkaline Phosphatase Total Protein Albumin Hepatitis A Ab Total Active Medications Generic Name Dose Route Start Last Admin Trade Name Freq PRN Reason Stop Dose Admin Heparin Sodium (Porcine) 5,000 unit 10/11/19 06:00 10/16/19 13:51 Heparin - SQ 5,000 unit TID [facility] Administration Cefazolin Sodium 1 gm/ 50 mls @ 100 mls/hr 10/15/19 18:00 10/16/19 17:19 Dextrose IVPB 100 mls/hr Q8H-IV [facility] Administration Melatonin 5 mg 10/11/19 23:16 10/15/19 21:34 Melatonin PO 5 mg HS PRN Administration INSOMNIA Oxybutynin Chloride 5 mg 10/12/19 15:00 10/16/19 09:20 Ditropan - PO 5 mg DAILY [facility] Administration Tamsulosin HCl 0.4 mg 10/11/19 11:24 10/16/19 09:12 Flomax - PO 0.4 mg DAILY@0830 [facility] Administration ASSESSMENT/PLAN: Problem List - Problems (1) Gram-negative bacteremia Assessment/Plan: bacteremia seconday to source/Kleb in UC and BC x 1 bottle. afebrile, leukocytosis improved in last 3 days lactic acidosis resolved On Cefazolin 2 gram Code(s): R78.81 - BACTEREMIA (2) TRISTON (acute kidney injury) Assessment/Plan: TRISTON improving. Renal following Code(s): N17.9 - ACUTE KIDNEY FAILURE, UNSPECIFIED (3) BPH (benign prostatic hyperplasia) Assessment/Plan: on flomax. monitor output Code(s): N40.0 - BENIGN PROSTATIC HYPERPLASIA WITHOUT LOWER URINRY TRACT SYMP (4) Dehydration Assessment/Plan: encourage PO intake. kidney function improved. Code(s): E86.0 - DEHYDRATION (5) Hyperbilirubinemia Assessment/Plan: resolved Code(s): E80.6 - OTHER DISORDERS OF BILIRUBIN METABOLISM (6) Lactic acid acidosis Assessment/Plan: resolved Code(s): E87.2 - ACIDOSIS (7) Leukocytosis Assessment/Plan: improved in last 4 days. on ceftriaxone 2 grams but switched to cefazolin in case ceftriaxone is contributing to elevated LFTs Code(s): D72.829 - ELEVATED WHITE BLOOD CELL COUNT, UNSPECIFIED (8) Prophylactic measure Code(s): Z29.9 - ENCOUNTER FOR PROPHYLACTIC MEASURES, UNSPECIFIED (9) Sepsis secondary to UTI Assessment/Plan: + kleb in urine. ID following On cefazolin Code(s): A41.9 - SEPSIS, UNSPECIFIED ORGANISM; N39.0 - URINARY TRACT INFECTION, SITE NOT SPECIFIED (10) Syncope and collapse Assessment/Plan: no further episodes. likely in setting of acute infection. ID following. Code(s): R55 - SYNCOPE AND COLLAPSE (11) Carotid stenosis Assessment/Plan: syncopal episode with near collapse small to moderate plaque to RCA had neck CTA today, awaiting official results vascular consulted Code(s): I65.29 - OCCLUSION AND STENOSIS OF UNSPECIFIED CAROTID ARTERY (12) Incontinence of urine Assessment/Plan: c/o incontinence/urgency on flomax bladder scan to assess PVR Code(s): R32 - UNSPECIFIED URINARY INCONTINENCE (13) LFT elevation Assessment/Plan: LfTs elevated, improving. liver u/s shows fatty infiltration of liver vs. hepatocellular disease GI following Code(s): R79.89 - OTHER SPECIFIED ABNORMAL FINDINGS OF BLOOD CHEMISTRY (14) DVT prophylaxis Assessment/Plan: heparin TID Code(s): Z29.9 - ENCOUNTER FOR PROPHYLACTIC MEASURES, UNSPECIFIED Visit type - Emergency Visit Emergency Visit: Yes ED Registration Date: 10/11/19 Care time: The patient presented to the Emergency Department on the above date and was hospitalized for further evaluation of their emergent condition. - New Patient This patient is new to me today: No - Critical Care Critical Care patient: No - Discharge Referral Referred to [facility] No - Medication Review Med list reviewed for High Risk Meds patients 65 and older: Yes
[2019-10-16] MEDS: MELATONIN 5 MG TABLETS PO PRN (22:36)
[2019-10-17] MEDS ORDERED: DEXTROSE 5%-WATER - 50 ML IVPB ONE ×2 (00:51→09:07)
[2019-10-17] MEDS ORDERED: ceFAZolin SODIUM 1 GM VIAL ONE ×2 (00:51→09:07)
[2019-10-17] MEDS: CEFAZOLIN 1 GM in DEXTROSE 5%-WATER - 50 ML IVPB SCH ×2 (01:16→09:10)
[2019-10-17] MEDS: HEPARIN NA (PORCINE) 5,000 UNITS/ML 1ML VIAL SQ SCH ×3 (06:02→22:04)
[2019-10-17 07:19] LABS: BILIRUBIN,DIRECT 0.2 mg/dL (0.0-0.2); BILIRUBIN,TOTAL 0.5 mg/dL (0.2-1)
[2019-10-17 07:41] LABS: BASO % 0.7 % (0-2.0); EOS % 3.3 % (0-4.5); HEMATOCRIT 41.4 % (35.4-49); HEMOGLOBIN 13.8 GM/dL (11.7-16.9); MCH 29.1 pg (25.7-33.7); MCHC 33.2 g/dl (32.0-35.9); MEAN CELL VOLUME 87.5 fl (80-96); MEAN PLT VOLUME 8.4 fl (7.5-11.1); MONO % 13.7 % (3.8-10.2); NEUT % 64.3 % (42.8-82.8); PLATELET COUNT 306 K/MM3 (134-434); RBC 4.73 M/mm3 (4.00-5.60); RDW 14.2 % (11.9-15.9); WHITE BLOOD COUNT 6.2 K/mm3 (4.0-10.0)
[2019-10-17 07:56] LABS: BLOOD UREA NITROGEN 15.7 mg/dL (7-18); CALCIUM 8.7 mg/dL (8.5-10.1); POTASSIUM 4.4 mmol/L (3.5-5.1)
[2019-10-17] MEDS ORDERED: PT OWN MED DRAWER 7, Y5N ONE ×2 (09:06→22:02)
[2019-10-17] MEDS: OXYBUTYNIN CHLORIDE 5 MG TABLET PO SCH (09:10)
[2019-10-17] MEDS: TAMSULOSIN HCL 0.4 MG CAP PO SCH (09:10)
--- NOTE | 2019-10-17 11:19 | PN ---
Progress Note, Physician History of Present Illness: AWAKE, ALERT SEATED IN BED NO C/O DYSURIA AFEBRILE WBC IMPROVED WNL AZOTEMIA IMPROVED RENAL SONO NO HN ABDO SONO NO GALLSTONES COVID-19(-) ELEVATED LFTS IMPROVED BC, URINE C/S + KLEBSIELLA - Current Medication List Current Medications: Active Medications Heparin Sodium (Porcine) (Heparin -) 5,000 unit SQ TID [facility] Last Admin: 10/17/19 06:02 Dose: 5,000 unit Documented by: Cefazolin Sodium 1 gm/ (Dextrose) 50 mls @ 100 mls/hr IVPB Q8H-IV [facility] Last Admin: 10/17/19 09:10 Dose: 100 mls/hr Documented by: Melatonin (Melatonin) 5 mg PO HS PRN PRN Reason: INSOMNIA Last Admin: 10/16/19 22:36 Dose: 5 mg Documented by: Oxybutynin Chloride (Ditropan -) 5 mg PO DAILY [facility] Last Admin: 10/17/19 09:10 Dose: 5 mg Documented by: Tamsulosin HCl (Flomax -) 0.4 mg PO DAILY@0830 [facility] Last Admin: 10/17/19 09:10 Dose: 0.4 mg Documented by: - Objective Vital Signs: Vital Signs Temperature 98 F 10/17/19 08:45 Pulse Rate 65 10/17/19 08:45 Respiratory Rate 18 10/17/19 08:45 Blood Pressure 136/74 10/17/19 08:45 O2 Sat by Pulse Oximetry (%) 98 10/17/19 09:00 Constitutional: Yes: No Distress Eyes: Yes: Conjunctiva Clear Cardiovascular: Yes: Regular Rate and Rhythm, S1, S2 Respiratory: Yes: CTA Bilaterally Gastrointestinal: Yes: Normal Bowel Sounds, Soft. No: Tenderness Edema: No Labs: CBC, BMP 10/17/19 05:46 10/17/19 05:46 INR, PTT INR 1.17 (0.83-1.09) H 10/16/19 11:43 Assessment/Plan GRAM NEGATIVE BACTEREMIA/ SEPSIS SECONDARY TO SOURCE KLEBSIELLA UTI URINARY INCONTINENCE FEVER/ LEUKOCYTOSIS IMPROVED AZOTEMIA IMPROVED LACTIC ACIDOSIS RESOLVED ELEVATED LFTS IMPROVED DAY#7 IV ANIBIOTICS SWITCH TO PO LEVAQUIN 500MG QD X 7D
--- NOTE | 2019-10-17 13:10 | PN.GI ---
GI Progress Note Subjective: No acute events states that he is waiting for a "heart test" No abdominal pain - Objective Vital Signs: Vital Signs Temperature 98 F 10/17/19 08:45 Pulse Rate 65 10/17/19 08:45 Respiratory Rate 18 10/17/19 08:45 Blood Pressure 136/74 10/17/19 08:45 O2 Sat by Pulse Oximetry (%) 98 10/17/19 09:00 Constitutional: Calm Eyes: No: Sclera Icterus Cardiovascular: Yes: Regular Rate and Rhythm Respiratory: Yes: CTA Bilaterally Gastrointestinal Inspection: No: Distention ...Auscultate: Yes: Normoactive Bowel Sounds ...Palpate: Yes: Soft. No: Hepatomegaly, Splenomegaly, Tenderness ...Percussion: No: Tympanitic Edema: No (No LE edema) Neurological: Yes: Alert Labs: CBC, BMP 10/17/19 05:46 10/17/19 05:46 INR, PTT INR 1.17 (0.83-1.09) H 10/16/19 11:43 Hepatic Panel Total Bilirubin 0.5 mg/dL (0.2-1) 10/17/19 05:46 Direct Bilirubin 0.2 mg/dL (0.0-0.2) 10/17/19 05:46 AST 112 U/L (15-37) H 10/17/19 05:46 ALT 148 U/L (13-61) H 10/17/19 05:46 Alkaline Phosphatase 139 U/L (45-117) H 10/17/19 05:46 Albumin 3.0 g/dl (3.4-5.0) L 10/17/19 05:46 Problem List - Problems (1) Abnormal liver function tests Assessment/Plan: Clinically asymptomatic and continued improvement of LFTs Hepatitis A/B serologies pending HCV antibody not ordered as of yet. I ordered it today Avoid hepatotoxic agents Monitor LFts Code(s): R94.5 - ABNORMAL RESULTS OF LIVER FUNCTION STUDIES
--- NOTE | 2019-10-17 15:26 | PN ---
Physical Exam: SUBJECTIVE: Patient seen and examined at the bedside. Patient denies any chest pain or shortness of breath OBJECTIVE: Patient for discharge home today but blueprint duplicator showed frequent and multiple PVCs (17 pvcs in a.m. ). He was scheduled for a stress echo, but test not completed as patient could not tolerate exam. For a Lexiscan on Sunday. Patient is a 68 y/o male with BPH and hx of nephrolithiasis with hydronephrosis who presents to the ED on 10/11/2019 after a syncopal episode. Pt was febrile and hypotensive with leukocytosis and positive UA. He is admitted for sepsis 2/2 acute cystitis. patient has been treated with ceftrixone 2 grams for Kleb UTI, however LFTs increased and switched to Cefazolin. Patient was to be sent home on levaquin per ID for 7 more days, however switch to ceftin 500mg bid since patient having frequent PVCs. Stress test scheduled for Sunday per Dr. Guerra. NPO on sunday midnight. covid status: negative as 10/11/2019 Vital Signs Period Temp Pulse Resp BP Sys/Castro Pulse Ox Last 24 Hr 98 F-98.4 F 55-72 18-18 121-140/58-98 94-98 GENERAL: The patient is awake, alert, and fully oriented, in no acute distress. HEAD: Normal with no signs of trauma. EYES: PERRL, extraocular movements intact, sclera anicteric, conjunctiva clear. No ptosis. ENT: Ears normal, nares patent, oropharynx clear without exudates, moist mucous membranes. NECK: Trachea midline, full range of motion, supple. LUNGS: Breath sounds equal, clear to auscultation bilaterally HEART: Regular rate and rhythm ABDOMEN: Soft, nontender, nondistended, normoactive bowel sounds EXTREMITIES: no edema. NEUROLOGICAL: Normal speech, gait steady PSYCH: Normal mood, normal affect. SKIN: Warm, dry, normal turgor, no rashes or lesions noted Laboratory Results - last 24 hr 10/17/19 10/17/19 05:46 05:46 WBC 6.2 RBC 4.73 Hgb 13.8 Hct 41.4 MCV 87.5 MCH 29.1 MCHC 33.2 RDW 14.2 Plt Count 306 MPV 8.4 Absolute Neuts (auto) 4.0 Neutrophils % 64.3 Lymphocytes % 18.0 D Monocytes % 13.7 H Eosinophils % 3.3 Basophils % 0.7 Nucleated RBC % 0 Sodium 140 Potassium 4.4 Chloride 110 H Carbon Dioxide 23 Anion Gap 7 L BUN 15.7 Creatinine 1.0 Est GFR (CKD-EPI)AfAm 88.61 Est GFR (CKD-EPI)NonAf 76.45 Random Glucose 90 Calcium 8.7 Total Bilirubin 0.5 Direct Bilirubin 0.2 AST 112 H ALT 148 H Alkaline Phosphatase 139 H Total Protein 7.0 Albumin 3.0 L Active Medications Generic Name Dose Route Start Last Admin Trade Name Freq PRN Reason Stop Dose Admin Cefuroxime Axetil 500 mg 10/17/19 22:00 Ceftin - PO BID [facility] Heparin Sodium (Porcine) 5,000 unit 10/11/19 06:00 10/17/19 13:06 Heparin - SQ 5,000 unit TID [facility] Administration Melatonin 5 mg 10/11/19 23:16 10/16/19 22:36 Melatonin PO 5 mg HS PRN Administration INSOMNIA Oxybutynin Chloride 5 mg 10/12/19 15:00 10/17/19 09:10 Ditropan - PO 5 mg DAILY [facility] Administration Tamsulosin HCl 0.4 mg 10/11/19 11:24 10/17/19 09:10 Flomax - PO 0.4 mg DAILY@0830 [facility] Administration ASSESSMENT/PLAN: Problem List - Problems (1) PVC's (premature ventricular contractions) Assessment/Plan: patient presents with syncope and fall. 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 he remains asymptomatic. Unable to complete stress echo today. Will need lexiscan on sunday per Dr. guerra. NPO midnight sunday for test Code(s): I49.3 - VENTRICULAR PREMATURE DEPOLARIZATION (2) Gram-negative bacteremia Assessment/Plan: bacteremia seconday to source/Kleb in UC and BC x 1 bottle. afebrile, leukocytosis resolved. lactic acidosis resolved on ceftin 500mg BID x 7 more days Code(s): R78.81 - BACTEREMIA (3) TRISTON (acute kidney injury) Assessment/Plan: TRISTON improving. Renal following Code(s): N17.9 - ACUTE KIDNEY FAILURE, UNSPECIFIED (4) BPH (benign prostatic hyperplasia) Assessment/Plan: on flomax. monitor output Code(s): N40.0 - BENIGN PROSTATIC HYPERPLASIA WITHOUT LOWER URINRY TRACT SYMP (5) Dehydration Assessment/Plan: encourage PO intake. kidney function improved. Code(s): E86.0 - DEHYDRATION (6) Hyperbilirubinemia Assessment/Plan: resolved Code(s): E80.6 - OTHER DISORDERS OF BILIRUBIN METABOLISM (7) Lactic acid acidosis Assessment/Plan: resolved Code(s): E87.2 - ACIDOSIS (8) Leukocytosis Assessment/Plan: resolved Code(s): D72.829 - ELEVATED WHITE BLOOD CELL COUNT, UNSPECIFIED (9) Prophylactic measure Code(s): Z29.9 - ENCOUNTER FOR PROPHYLACTIC MEASURES, UNSPECIFIED (10) Sepsis secondary to UTI Assessment/Plan: + kleb in urine. ID following patient to be discharged home on ceftin 500mg bid Code(s): A41.9 - SEPSIS, UNSPECIFIED ORGANISM; N39.0 - URINARY TRACT INFECTION, SITE NOT SPECIFIED (11) Syncope and collapse Assessment/Plan: patient now with frequent PVCs on blueprint duplicator and will need stress test to further evaluate. Unsure if PVCs led to syncope/fall. cardiology following. Code(s): R55 - SYNCOPE AND COLLAPSE (12) Carotid stenosis Assessment/Plan: syncopal episode with near collapse. small to moderate plaque to RCA had neck CTA, per vascular, can follow up outpatient. Code(s): I65.29 - OCCLUSION AND STENOSIS OF UNSPECIFIED CAROTID ARTERY (13) Incontinence of urine Assessment/Plan: c/o incontinence/urgency on flomax bladder scan to assess PVR Code(s): R32 - UNSPECIFIED URINARY INCONTINENCE (14) LFT elevation Assessment/Plan: LfTs elevated, improving. liver u/s shows fatty infiltration of liver vs. hepatocellular disease GI following. hepatitis panel pending Code(s): R79.89 - OTHER SPECIFIED ABNORMAL FINDINGS OF BLOOD CHEMISTRY (15) DVT prophylaxis Assessment/Plan: heparin TID Code(s): Z29.9 - ENCOUNTER FOR PROPHYLACTIC MEASURES, UNSPECIFIED Visit type - Emergency Visit Emergency Visit: Yes ED Registration Date: 10/11/19 Care time: The patient presented to the Emergency Department on the above date and was hospitalized for further evaluation of their emergent condition. - New Patient This patient is new to me today: No - Critical Care Critical Care patient: No - Discharge Referral Referred to [facility] No - Medication Review Med list reviewed for High Risk Meds patients 65 and older: Yes
--- NOTE | 2019-10-17 15:38 | PN ---
Progress Note, Physician History of Present Illness: Pt is a 68 y/o male with BPH (on tamsulosin years ago) and hx of nephrolithiasis with hydronephrosis who presents after syncope. Pt reports watching TV in his bedroom around 10pm and felt weak to get out of bed. When he got up, he walked to the window in the living room then felt like he was shaking, and the next thing he recalls is being on the floor yelling for his . He does not recall how he landed on the floor or if he hit his head. EMS was able to help him in a chair before transport. He reports an episode of urinary incontinence in bed just prior, which has never happened before. He denies fever, chills, nausea, vomiting. He reports intermittent diarrhea, but he has not had it in the last day. - Current Medication List Current Medications: Active Medications Cefuroxime Axetil (Ceftin -) 500 mg PO BID [facility] Heparin Sodium (Porcine) (Heparin -) 5,000 unit SQ TID [facility] Last Admin: 10/17/19 13:06 Dose: 5,000 unit Documented by: Melatonin (Melatonin) 5 mg PO HS PRN PRN Reason: INSOMNIA Last Admin: 10/16/19 22:36 Dose: 5 mg Documented by: Oxybutynin Chloride (Ditropan -) 5 mg PO DAILY [facility] Last Admin: 10/17/19 09:10 Dose: 5 mg Documented by: Tamsulosin HCl (Flomax -) 0.4 mg PO DAILY@0830 [facility] Last Admin: 10/17/19 09:10 Dose: 0.4 mg Documented by: - Objective Vital Signs: Vital Signs Temperature 98 F 10/17/19 08:45 Pulse Rate 65 10/17/19 08:45 Respiratory Rate 18 10/17/19 08:45 Blood Pressure 136/74 10/17/19 08:45 O2 Sat by Pulse Oximetry (%) 98 10/17/19 09:00 Eyes: Yes: WNL, Conjunctiva Clear, EOM Intact HENT: Yes: WNL, Atraumatic, Normocephalic Neck: Yes: WNL, Supple, Trachea Midline Cardiovascular: Yes: WNL, Regular Rate and Rhythm Respiratory: Yes: WNL, Regular, CTA Bilaterally Gastrointestinal: Yes: WNL, Normal Bowel Sounds Genitourinary: Yes: WNL Musculoskeletal: Yes: WNL Extremities: Yes: WNL Edema: No Integumentary: Yes: WNL Neurological: Yes: WNL, Alert, Oriented ...Motor Strength: WNL Psychiatric: Yes: WNL Labs: CBC, BMP 10/17/19 05:46 10/17/19 05:46 INR, PTT INR 1.17 (0.83-1.09) H 10/16/19 11:43 Problem List - Problems (1) TRISTON (acute kidney injury) Code(s): N17.9 - ACUTE KIDNEY FAILURE, UNSPECIFIED (2) BPH (benign prostatic hyperplasia) Code(s): N40.0 - BENIGN PROSTATIC HYPERPLASIA WITHOUT LOWER URINRY TRACT SYMP (3) Carotid stenosis Code(s): I65.29 - OCCLUSION AND STENOSIS OF UNSPECIFIED CAROTID ARTERY (4) Hyperbilirubinemia Code(s): E80.6 - OTHER DISORDERS OF BILIRUBIN METABOLISM (5) Lactic acid acidosis Code(s): E87.2 - ACIDOSIS (6) Leukocytosis Code(s): D72.829 - ELEVATED WHITE BLOOD CELL COUNT, UNSPECIFIED (7) Prophylactic measure Code(s): Z29.9 - ENCOUNTER FOR PROPHYLACTIC MEASURES, UNSPECIFIED (8) Sepsis Code(s): A41.9 - SEPSIS, UNSPECIFIED ORGANISM Qualifiers: Sepsis type: sepsis due to unspecified organism Sepsis acute organ dysfunction status: unspecified Qualified Code(s): A41.9 - Sepsis, unspecified organism (9) Suspected COVID-19 virus infection Code(s): Z20.828 - CONTACT W AND EXPOSURE TO OTH VIRAL COMMUNICABLE DISEASES (10) Syncope and collapse Code(s): R55 - SYNCOPE AND COLLAPSE (11) Urinary tract stone Code(s): N20.9 - URINARY CALCULUS, UNSPECIFIED Qualifiers: Urinary calculus location: ureter Qualified Code(s): N20.1 - Calculus of ureter Assessment/Plan changes in MS denies syncope right carotid artery stenosis urosepsis leukocytosis lactic acidosis echo: normal LVEF; abnormal diastolic compliance; mildly dilated ascending aorta TNI negative Telemetry AIVR Plan telemetry Unable to walk on the treadmill - ECHO stress test Will order Lexiscan MIBI.for SundayOct 19
--- NOTE | 2019-10-17 17:23 | PN ---
Progress Note, Physician History of Present Illness: Pt seen and examined at bedside. He is awake and alert. He denies dysuria or hematuria. - Current Medication List Current Medications: Active Medications Cefuroxime Axetil (Ceftin -) 500 mg PO BID [facility] Heparin Sodium (Porcine) (Heparin -) 5,000 unit SQ TID [facility] Last Admin: 10/17/19 13:06 Dose: 5,000 unit Documented by: Melatonin (Melatonin) 5 mg PO HS PRN PRN Reason: INSOMNIA Last Admin: 10/16/19 22:36 Dose: 5 mg Documented by: Oxybutynin Chloride (Ditropan -) 5 mg PO DAILY [facility] Last Admin: 10/17/19 09:10 Dose: 5 mg Documented by: Tamsulosin HCl (Flomax -) 0.4 mg PO DAILY@0830 [facility] Last Admin: 10/17/19 09:10 Dose: 0.4 mg Documented by: - Objective Vital Signs: Vital Signs Temperature 98.5 F 10/17/19 14:00 Pulse Rate 62 10/17/19 14:00 Respiratory Rate 18 10/17/19 14:00 Blood Pressure 132/70 10/17/19 14:00 O2 Sat by Pulse Oximetry (%) 96 10/17/19 14:00 Constitutional: Yes: Calm Eyes: Yes: Conjunctiva Clear HENT: Yes: Atraumatic Neck: Yes: Supple Cardiovascular: Yes: S1, S2 Respiratory: Yes: CTA Bilaterally Gastrointestinal: Yes: Normal Bowel Sounds, Soft Genitourinary: Yes: WNL Musculoskeletal: Yes: WNL Edema: No Integumentary: Yes: WNL Neurological: Yes: Oriented Psychiatric: Yes: Oriented Labs: CBC, BMP 10/17/19 05:46 10/17/19 05:46 INR, PTT INR 1.17 (0.83-1.09) H 10/16/19 11:43 Problem List - Problems (1) TRISTON (acute kidney injury) Code(s): N17.9 - ACUTE KIDNEY FAILURE, UNSPECIFIED (2) BPH (benign prostatic hyperplasia) Code(s): N40.0 - BENIGN PROSTATIC HYPERPLASIA WITHOUT LOWER URINRY TRACT SYMP Assessment/Plan Current Medications Generic Name Dose Route Start Last Admin Trade Name Freq PRN Reason Stop Dose Admin Cefuroxime Axetil 500 mg 10/17/19 22:00 Ceftin - PO BID [facility] Heparin Sodium (Porcine) 5,000 unit 10/11/19 06:00 10/17/19 13:06 Heparin - SQ 5,000 unit TID [facility] Administration Melatonin 5 mg 10/11/19 23:16 10/16/19 22:36 Melatonin PO 5 mg HS PRN Administration INSOMNIA Oxybutynin Chloride 5 mg 10/12/19 15:00 10/17/19 09:10 Ditropan - PO 5 mg DAILY [facility] Administration Tamsulosin HCl 0.4 mg 10/11/19 11:24 10/17/19 09:10 Flomax - PO 0.4 mg DAILY@0830 [facility] Administration Impression 1. TRISTON 2. sepsis 3. syncope 4. bph 5. lactic acidosis 6. elevated LFT Plan - renal function stable - pt stable off of fluids - encourage po intake and hydration - monitor chloride levels - will follow prn
[2019-10-17 21:09] LABS: HEP B CORE AB, TOT Negative (Negative)
[2019-10-17] MEDS: CEFUROXIME AXETIL 500 MG TABLET PO SCH (22:04)
[2019-10-17] MEDS: MELATONIN 5 MG TABLETS PO PRN (22:09)
[2019-10-18] MEDS: HEPARIN NA (PORCINE) 5,000 UNITS/ML 1ML VIAL SQ SCH ×3 (06:03→21:35)
[2019-10-18 09:01] LABS: EOS % 3.5 % (0-4.5); HEMATOCRIT 41.2 % (35.4-49); HEMOGLOBIN 13.6 GM/dL (11.7-16.9); LYMPH % 21.7 % (8-40); MCH 29.1 pg (25.7-33.7); MCHC 32.9 g/dl (32.0-35.9); MEAN CELL VOLUME 88.5 fl (80-96); MEAN PLT VOLUME 8.6 fl (7.5-11.1); MONO % 11.7 % (3.8-10.2); NEUT % 62.1 % (42.8-82.8); PLATELET COUNT 344 K/MM3 (134-434); RBC 4.66 M/mm3 (4.00-5.60); RDW 14.4 % (11.9-15.9); WHITE BLOOD COUNT 5.7 K/mm3 (4.0-10.0)
[2019-10-18] MEDS: TAMSULOSIN HCL 0.4 MG CAP PO SCH (09:02)
[2019-10-18 09:41] LABS: ALBUMIN 2.9 g/dl (3.4-5.0); BILIRUBIN,DIRECT 0.2 mg/dL (0.0-0.2); BILIRUBIN,TOTAL 0.3 mg/dL (0.2-1); BLOOD UREA NITROGEN 20.1 mg/dL (7-18); CALCIUM 8.3 mg/dL (8.5-10.1); MAGNESIUM 2.5 mg/dL (1.8-2.4); POTASSIUM 4.7 mmol/L (3.5-5.1); TOT PROT 6.7 g/dl (6.4-8.2)
[2019-10-18] MEDS ORDERED: PT OWN MED DRAWER 7, Y5N ONE ×3 (09:49→21:25)
[2019-10-18] MEDS: CEFUROXIME AXETIL 500 MG TABLET PO SCH ×2 (09:53→21:35)
[2019-10-18] MEDS: OXYBUTYNIN CHLORIDE 5 MG TABLET PO SCH (09:53)
--- NOTE | 2019-10-18 10:49 | PN ---
Progress Note, Physician Chief Complaint: doing well. no cp no sob, no new c/o. - Current Medication List Current Medications: Active Medications Cefuroxime Axetil (Ceftin -) 500 mg PO BID [facility] Last Admin: 10/18/19 09:53 Dose: 500 mg Documented by: Heparin Sodium (Porcine) (Heparin -) 5,000 unit SQ TID [facility] Last Admin: 10/18/19 06:03 Dose: 5,000 unit Documented by: Melatonin (Melatonin) 5 mg PO HS PRN PRN Reason: INSOMNIA Last Admin: 10/17/19 22:09 Dose: 5 mg Documented by: Oxybutynin Chloride (Ditropan -) 5 mg PO DAILY [facility] Last Admin: 10/18/19 09:53 Dose: 5 mg Documented by: Tamsulosin HCl (Flomax -) 0.4 mg PO DAILY@0830 [facility] Last Admin: 10/18/19 09:02 Dose: 0.4 mg Documented by: - Objective Vital Signs: Vital Signs Temperature 97.7 F 10/18/19 10:00 Pulse Rate 55 L 10/18/19 10:00 Respiratory Rate 18 10/18/19 10:00 Blood Pressure 121/71 10/18/19 10:00 O2 Sat by Pulse Oximetry (%) 95 10/18/19 10:00 Constitutional: Yes: Well Nourished, No Distress, Calm Eyes: Yes: Conjunctiva Clear, EOM Intact HENT: Yes: Atraumatic, Pharyngeal Erythema Neck: Yes: Supple, Trachea Midline Cardiovascular: Yes: Regular Rate and Rhythm Respiratory: Yes: Regular, CTA Bilaterally Gastrointestinal: Yes: Normal Bowel Sounds, Soft Extremities: Yes: WNL Edema: No Peripheral Pulses WNL: Yes Labs: CBC, BMP 10/18/19 05:46 10/18/19 05:46 INR, PTT INR 1.17 (0.83-1.09) H 10/16/19 11:43 Impression/Plan Impression/Plan: (1) PVC's (premature ventricular contractions) Assessment/Plan: patient presents with syncope and fall. hall monitor overnight and this morning with numerous PVCs. he remains asymptomatic. Unable to complete stress echo today. Will need lexiscan on sunday per Dr. scott. NPO midnight sunday for test Code(s): I49.3 - VENTRICULAR PREMATURE DEPOLARIZATION (2) Gram-negative bacteremia UTI, on ceftin 500mg BID x 7 more days (3) TRISTON (acute kidney injury) TRISTON improving. Renal following (4) BPH (benign prostatic hyperplasia) on flomax. monitor output (5) Syncope and collapse Assessment/Plan: patient now with frequent PVCs on threat monitoring analyst and will need stress test to further evaluate. Unsure if PVCs led to syncope/fall. cardiology following. Code(s): R55 - SYNCOPE AND COLLAPSE (6) Carotid stenosis Assessment/Plan: syncopal episode with near collapse. small to moderate plaque to RCA had neck CTA, per vascular, can follow up outpatient. Visit type - Emergency Visit Emergency Visit: No - New Patient This patient is new to me today: Yes Date on this admission: 10/18/19 - Critical Care Critical Care patient: No - Discharge Referral Referred to [facility] No - Medication Review Med list reviewed for High Risk Meds patients 65 and older: Yes
[2019-10-18 11:44] LABS: ANISOCYTOSIS 0; HELMET CELLS 0; HOWELL-JOLLY BODIES 0; MACROCYTOSIS 0; OVALOCYTE 0; PLATELET ESTIMATE NORMAL; ROULEAU 0; SICKELED CELLS 0; TARGET CELLS 0; TEAR DROP CELLS 0; TOXIC GRANULATION 0
--- NOTE | 2019-10-18 14:22 | PN ---
Progress Note, Physician Chief Complaint: Pt A&Ox3; lying in bed; anxious to go home; no chest pain or dyspnea. History of Present Illness: Mr. Paz is a 68 y/o white male with a PMH of BPH who presents to the ED s/p episode of AMS at home. Pt states he got up to go to the window, began shaking and sweating. Pt states he does not recall what happened after that. Per , the patient yelled for her and when she went to check on him she found him on the floor on his knees, holding onto a dresser. he denies coughing or chest pain. does state he has had dysuria for a few days. occasional diarrhea; otherwise, no complaints. does not have a primary doctor. no headache. unsure if he hit his head during fall. denies focal weakness or any other complaints. 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 - Current Medication List Current Medications: Active Medications Cefuroxime Axetil (Ceftin -) 500 mg PO BID [facility] Last Admin: 10/18/19 09:53 Dose: 500 mg Documented by: Heparin Sodium (Porcine) (Heparin -) 5,000 unit SQ TID [facility] Last Admin: 10/18/19 13:38 Dose: 5,000 unit Documented by: Melatonin (Melatonin) 5 mg PO HS PRN PRN Reason: INSOMNIA Last Admin: 10/17/19 22:09 Dose: 5 mg Documented by: Oxybutynin Chloride (Ditropan -) 5 mg PO DAILY [facility] Last Admin: 10/18/19 09:53 Dose: 5 mg Documented by: Tamsulosin HCl (Flomax -) 0.4 mg PO DAILY@0830 [facility] Last Admin: 10/18/19 09:02 Dose: 0.4 mg Documented by: - Objective Vital Signs: Vital Signs Temperature 97.7 F 10/18/19 10:00 Pulse Rate 55 L 10/18/19 10:00 Respiratory Rate 18 10/18/19 10:00 Blood Pressure 121/71 10/18/19 10:00 O2 Sat by Pulse Oximetry (%) 95 10/18/19 10:00 Constitutional: Yes: Anxious Labs: CBC, BMP 10/18/19 05:46 10/18/19 05:46 INR, PTT INR 1.17 (0.83-1.09) H 10/16/19 11:43 Assessment/Plan changes in MS; denies syncope right carotid artery disease (stenosis noted on US likely artifactual;not stenotic by CTA) urosepsis leukocytosis lactic acidosis mildly elevated free T4 overweight Plan: TNI negative Telemetry AIVR Unable to walk on the treadmill on ECHO stress test ("I can't go up hills"). Ordered Lexiscan MIBI.for SundayOct 19.
[2019-10-18 18:13] LABS: BASO % 0.9 % (0-2.0); HEMATOCRIT 41.5 % (35.4-49); HEMOGLOBIN 13.8 GM/dL (11.7-16.9); LYMPH % 26.3 % (8-40); MCH 29.6 pg (25.7-33.7); MCHC 33.2 g/dl (32.0-35.9); MEAN CELL VOLUME 89.1 fl (80-96); MEAN PLT VOLUME 8.4 fl (7.5-11.1); NEUT % 60.8 % (42.8-82.8); PLATELET COUNT 393 K/MM3 (134-434); RBC 4.66 M/mm3 (4.00-5.60); RDW 14.5 % (11.9-15.9); WHITE BLOOD COUNT 5.2 K/mm3 (4.0-10.0)
[2019-10-18] MEDS: MELATONIN 5 MG TABLETS PO PRN (21:42)
[2019-10-19] MEDS: HEPARIN NA (PORCINE) 5,000 UNITS/ML 1ML VIAL SQ SCH ×3 (06:27→22:07)
[2019-10-19] MEDS: TAMSULOSIN HCL 0.4 MG CAP PO SCH (08:45)
[2019-10-19 08:53] LABS: BASO % 0.9 % (0-2.0); EOS % 2.5 % (0-4.5); HEMATOCRIT 41.8 % (35.4-49); HEMOGLOBIN 13.9 GM/dL (11.7-16.9); LYMPH % 23.3 % (8-40); MCH 29.4 pg (25.7-33.7); MCHC 33.1 g/dl (32.0-35.9); MEAN CELL VOLUME 88.6 fl (80-96); MEAN PLT VOLUME 8.2 fl (7.5-11.1); MONO % 7.5 % (3.8-10.2); NEUT % 65.8 % (42.8-82.8); PLATELET COUNT 401 K/MM3 (134-434); RBC 4.72 M/mm3 (4.00-5.60); RDW 14.2 % (11.9-15.9); WHITE BLOOD COUNT 5.1 K/mm3 (4.0-10.0)
--- NOTE | 2019-10-19 09:06 | PN ---
Progress Note, Physician Chief Complaint: doing well. no cp no sob, no new c/o. in last 24 h no new events. - Current Medication List Current Medications: Active Medications Cefuroxime Axetil (Ceftin -) 500 mg PO BID [facility] Last Admin: 10/18/19 21:35 Dose: 500 mg Documented by: Heparin Sodium (Porcine) (Heparin -) 5,000 unit SQ TID [facility] Last Admin: 10/19/19 06:27 Dose: 5,000 unit Documented by: Melatonin (Melatonin) 5 mg PO HS PRN PRN Reason: INSOMNIA Last Admin: 10/18/19 21:42 Dose: 5 mg Documented by: Oxybutynin Chloride (Ditropan -) 5 mg PO DAILY [facility] Last Admin: 10/18/19 09:53 Dose: 5 mg Documented by: Tamsulosin HCl (Flomax -) 0.4 mg PO DAILY@0830 [facility] Last Admin: 10/18/19 09:02 Dose: 0.4 mg Documented by: - Objective Vital Signs: Vital Signs Temperature 98.4 F 10/19/19 06:00 Pulse Rate 47 L 10/19/19 06:00 Respiratory Rate 16 10/19/19 06:00 Blood Pressure 128/73 10/19/19 06:00 O2 Sat by Pulse Oximetry (%) 97 10/19/19 06:00 Constitutional: Yes: Well Nourished, No Distress Eyes: Yes: Conjunctiva Clear, EOM Intact HENT: Yes: Atraumatic, Normocephalic Neck: Yes: Supple, Trachea Midline Cardiovascular: Yes: Regular Rate and Rhythm Respiratory: Yes: Regular, CTA Bilaterally Gastrointestinal: Yes: Normal Bowel Sounds, Soft Extremities: Yes: WNL Edema: No Peripheral Pulses WNL: Yes Neurological: Yes: WNL Labs: CBC, BMP 10/19/19 08:29 INR, PTT INR 1.17 (0.83-1.09) H 10/16/19 11:43 Impression/Plan Impression/Plan: (1) PVC's (premature ventricular contractions) Assessment/Plan: patient presents with syncope and fall. desk monitor overnight and this morning with numerous PVCs. he remains asymptomatic. . Will need lexiscan on sunday per Dr. scott. NPO midnight sunday for test Code(s): I49.3 - VENTRICULAR PREMATURE DEPOLARIZATION (2) Gram-negative bacteremia UTI, on ceftin 500mg BID x 7 more days (3) TRISTON (acute kidney injury) TRISTON improving. Renal following (4) BPH (benign prostatic hyperplasia) on flomax. monitor output (5) Syncope and collapse Assessment/Plan: patient now with frequent PVCs on monitor technician and will need stress test to further evaluate. Unsure if PVCs led to syncope/fall. cardiology following. (6) Carotid stenosis Assessment/Plan: syncopal episode with near collapse. small to moderate plaque to RCA had neck CTA, per vascular, can follow up outpatient. Corrina on dvt prophylaxis. Visit type - Emergency Visit Emergency Visit: No - New Patient This patient is new to me today: No - Critical Care Critical Care patient: No - Discharge Referral Referred to [facility] No - Medication Review Med list reviewed for High Risk Meds patients 65 and older: Yes
[2019-10-19 09:21] LABS: ALBUMIN 3.1 g/dl (3.4-5.0); BILIRUBIN,TOTAL 0.4 mg/dL (0.2-1); BLOOD UREA NITROGEN 20.3 mg/dL (7-18); CALCIUM 8.8 mg/dL (8.5-10.1); MAGNESIUM 2.3 mg/dL (1.8-2.4); POTASSIUM 4.2 mmol/L (3.5-5.1); TOT PROT 7.1 g/dl (6.4-8.2)
[2019-10-19] MEDS: OXYBUTYNIN CHLORIDE 5 MG TABLET PO SCH (10:07)
[2019-10-19] MEDS: CEFUROXIME AXETIL 500 MG TABLET PO SCH ×2 (10:07→22:07)
[2019-10-19] MEDS ORDERED: PT OWN MED DRAWER 7, Y5N ONE (21:39)
[2019-10-19] MEDS: MELATONIN 5 MG TABLETS PO PRN (22:08)
[2019-10-20] MEDS: HEPARIN NA (PORCINE) 5,000 UNITS/ML 1ML VIAL SQ SCH ×2 (06:23→14:44)
[2019-10-20 07:42] LABS: BASO % 0.6 % (0-2.0); EOS % 2.8 % (0-4.5); HEMATOCRIT 41.9 % (35.4-49); HEMOGLOBIN 13.8 GM/dL (11.7-16.9); LYMPH % 21.4 % (8-40); MCH 29.1 pg (25.7-33.7); MCHC 32.9 g/dl (32.0-35.9); MEAN CELL VOLUME 88.4 fl (80-96); MONO % 6.5 % (3.8-10.2); NEUT % 68.7 % (42.8-82.8); PLATELET COUNT 423 K/MM3 (134-434); RBC 4.74 M/mm3 (4.00-5.60); RDW 14.2 % (11.9-15.9)
[2019-10-20 07:49] LABS: ALBUMIN 3.1 g/dl (3.4-5.0); BILIRUBIN,TOTAL 0.4 mg/dL (0.2-1); BLOOD UREA NITROGEN 19.1 mg/dL (7-18); CALCIUM 8.6 mg/dL (8.5-10.1); CREATININE 1.1 mg/dL (0.55-1.3); POTASSIUM 4.5 mmol/L (3.5-5.1)
[2019-10-20 09:15] LABS: MAGNESIUM 2.4 mg/dL (1.8-2.4)
--- NOTE | 2019-10-20 09:49 | PN ---
Progress Note, Physician History of Present Illness: Pt is a 68 y/o male with BPH (on tamsulosin years ago) and hx of nephrolithiasis with hydronephrosis who presents after syncope. Pt reports watching TV in his bedroom around 10pm and felt weak to get out of bed. When he got up, he walked to the window in the living room then felt like he was shaking, and the next thing he recalls is being on the floor yelling for his . He does not recall how he landed on the floor or if he hit his head. EMS was able to help him in a chair before transport. He reports an episode of urinary incontinence in bed just prior, which has never happened before. He denies fever, chills, nausea, vomiting. He reports intermittent diarrhea, but he has not had it in the last day. - Current Medication List Current Medications: Active Medications Cefuroxime Axetil (Ceftin -) 500 mg PO BID [facility] Last Admin: 10/19/19 22:07 Dose: 500 mg Documented by: Heparin Sodium (Porcine) (Heparin -) 5,000 unit SQ TID [facility] Last Admin: 10/20/19 06:23 Dose: 5,000 unit Documented by: Melatonin (Melatonin) 5 mg PO HS PRN PRN Reason: INSOMNIA Last Admin: 10/19/19 22:08 Dose: 5 mg Documented by: Oxybutynin Chloride (Ditropan -) 5 mg PO DAILY [facility] Last Admin: 10/19/19 10:07 Dose: 5 mg Documented by: Tamsulosin HCl (Flomax -) 0.4 mg PO DAILY@0830 [facility] Last Admin: 10/19/19 08:45 Dose: 0.4 mg Documented by: - Objective Vital Signs: Vital Signs Temperature 98.3 F 10/20/19 06:00 Pulse Rate 51 L 10/20/19 06:00 Respiratory Rate 16 10/20/19 06:00 Blood Pressure 123/74 10/20/19 06:00 O2 Sat by Pulse Oximetry (%) 97 10/20/19 06:00 Eyes: Yes: WNL, Conjunctiva Clear, EOM Intact HENT: Yes: WNL, Atraumatic, Normocephalic Neck: Yes: WNL, Supple, Trachea Midline Cardiovascular: Yes: WNL, Regular Rate and Rhythm Respiratory: Yes: WNL, Regular, CTA Bilaterally Gastrointestinal: Yes: WNL, Normal Bowel Sounds Genitourinary: Yes: WNL Musculoskeletal: Yes: WNL Extremities: Yes: WNL Edema: No Integumentary: Yes: WNL Neurological: Yes: WNL, Alert, Oriented ...Motor Strength: WNL Psychiatric: Yes: WNL Labs: CBC, BMP 10/20/19 06:56 10/20/19 06:56 INR, PTT INR 1.17 (0.83-1.09) H 10/16/19 11:43 Problem List - Problems (1) TRISTON (acute kidney injury) Code(s): N17.9 - ACUTE KIDNEY FAILURE, UNSPECIFIED (2) BPH (benign prostatic hyperplasia) Code(s): N40.0 - BENIGN PROSTATIC HYPERPLASIA WITHOUT LOWER URINRY TRACT SYMP (3) Carotid stenosis Code(s): I65.29 - OCCLUSION AND STENOSIS OF UNSPECIFIED CAROTID ARTERY (4) Hyperbilirubinemia Code(s): E80.6 - OTHER DISORDERS OF BILIRUBIN METABOLISM (5) Lactic acid acidosis Code(s): E87.2 - ACIDOSIS (6) Leukocytosis Code(s): D72.829 - ELEVATED WHITE BLOOD CELL COUNT, UNSPECIFIED (7) Prophylactic measure Code(s): Z29.9 - ENCOUNTER FOR PROPHYLACTIC MEASURES, UNSPECIFIED (8) Sepsis Code(s): A41.9 - SEPSIS, UNSPECIFIED ORGANISM Qualifiers: Sepsis type: sepsis due to unspecified organism Sepsis acute organ dysfunction status: unspecified Qualified Code(s): A41.9 - Sepsis, unspecified organism (9) Suspected COVID-19 virus infection Code(s): Z20.828 - CONTACT W AND EXPOSURE TO OTH VIRAL COMMUNICABLE DISEASES (10) Syncope and collapse Code(s): R55 - SYNCOPE AND COLLAPSE (11) Urinary tract stone Code(s): N20.9 - URINARY CALCULUS, UNSPECIFIED Qualifiers: Urinary calculus location: ureter Qualified Code(s): N20.1 - Calculus of ureter Assessment/Plan changes in MS denies syncope right carotid artery stenosis urosepsis leukocytosis lactic acidosis echo: normal LVEF; abnormal diastolic compliance; mildly dilated ascending aorta TNI negative Telemetry AIVR Plan MIBI ST negative. May be followed as outpatient from cardiac point of view
[2019-10-20 10:47] LABS: ANISOCYTOSIS 0; MACROCYTOSIS 0; PLATELET ESTIMATE NORMAL
[2019-10-20] MEDS ORDERED: REGADENOSON 0.4 MG/5 ML PRE-FILLED SYRINGE IVPUSH ONE ×3 (11:00→12:43)
[2019-10-20] MEDS ORDERED: PT OWN MED DRAWER 7, Y5N ONE ×2 (11:16→14:35)
[2019-10-20] MEDS: OXYBUTYNIN CHLORIDE 5 MG TABLET PO SCH (14:44)
[2019-10-20] MEDS: TAMSULOSIN HCL 0.4 MG CAP PO SCH (14:44)
[2019-10-20] MEDS: CEFUROXIME AXETIL 500 MG TABLET PO SCH (14:44)
--- NOTE | 2019-10-20 16:58 | PN ---
Physical Exam: SUBJECTIVE: Patient seen and examined OBJECTIVE: Vital Signs Period Temp Pulse Resp BP Sys/Castro Pulse Ox Last 24 Hr 97.5 F-98.3 F 46-58 16-20 103-146/54-91 97-100 GENERAL: The patient is awake, alert, and fully oriented, in no acute distress. HEAD: Normal with no signs of trauma. EYES: PERRL, extraocular movements intact, sclera anicteric, conjunctiva clear. No ptosis. ENT: Ears normal, nares patent, oropharynx clear without exudates, moist mucous membranes. NECK: Trachea midline, full range of motion, supple. LUNGS: Breath sounds equal, clear to auscultation bilaterally, no wheezes, no crackles, no accessory muscle use. HEART: Regular rate and rhythm, S1, S2 without murmur, rub or gallop. ABDOMEN: Soft, nontender, nondistended, normoactive bowel sounds, no guarding, no rebound, no hepatosplenomegaly, no masses. EXTREMITIES: 2+ pulses, warm, well-perfused, no edema. NEUROLOGICAL: Cranial nerves II through XII grossly intact. Normal speech, gait not observed. PSYCH: Normal mood, normal affect. SKIN: Warm, dry, normal turgor, no rashes or lesions noted Laboratory Results - last 24 hr 10/20/19 10/20/19 06:56 06:56 WBC 5.0 RBC 4.74 Hgb 13.8 Hct 41.9 MCV 88.4 MCH 29.1 MCHC 32.9 RDW 14.2 Plt Count 423 MPV 8.0 Absolute Neuts (auto) 3.4 Neutrophils % 68.7 Neutrophils % (Manual) 73.0 D Band Neutrophils % 1.0 Lymphocytes % 21.4 Lymphocytes % (Manual) 19.0 Monocytes % 6.5 Monocytes % (Manual) 2 L D Eosinophils % 2.8 Eosinophils % (Manual) 2.0 D Basophils % 0.6 Basophils % (Manual) 1.0 D Myelocytes % (Man) 0 D Promyelocytes % (Man) 0 Blast Cells % (Manual) 0 Nucleated RBC % 0 Metamyelocytes 2 D Hypochromia 0 Platelet Estimate Normal Polychromasia 0 Poikilocytosis 0 Anisocytosis 0 Microcytosis 0 Macrocytosis 0 Sodium 139 Potassium 4.5 Chloride 111 H Carbon Dioxide 24 Anion Gap 4 L BUN 19.1 H Creatinine 1.1 Est GFR (CKD-EPI)AfAm 78.97 Est GFR (CKD-EPI)NonAf 68.13 Random Glucose 90 Calcium 8.6 Magnesium 2.4 Total Bilirubin 0.4 AST 49 H ALT 93 H Alkaline Phosphatase 106 Total Protein 7.0 Albumin 3.1 L Active Medications Generic Name Dose Route Start Last Admin Trade Name Freq PRN Reason Stop Dose Admin Cefuroxime Axetil 500 mg 10/17/19 22:00 10/20/19 14:44 Ceftin - PO 500 mg BID [facility] Administration Heparin Sodium (Porcine) 5,000 unit 10/11/19 06:00 10/20/19 14:44 Heparin - SQ 5,000 unit TID [facility] Administration Melatonin 5 mg 10/11/19 23:16 10/19/19 22:08 Melatonin PO 5 mg HS PRN Administration INSOMNIA Oxybutynin Chloride 5 mg 10/12/19 15:00 10/20/19 14:44 Ditropan - PO 5 mg DAILY [facility] Administration Tamsulosin HCl 0.4 mg 10/11/19 11:24 10/20/19 14:44 Flomax - PO 0.4 mg DAILY@0830 [facility] Administration ASSESSMENT/PLAN: Problem List - Problems (1) PVC's (premature ventricular contractions) Code(s): I49.3 - VENTRICULAR PREMATURE DEPOLARIZATION (2) Gram-negative bacteremia Code(s): R78.81 - BACTEREMIA (3) TRISTON (acute kidney injury) Code(s): N17.9 - ACUTE KIDNEY FAILURE, UNSPECIFIED (4) BPH (benign prostatic hyperplasia) Code(s): N40.0 - BENIGN PROSTATIC HYPERPLASIA WITHOUT LOWER URINRY TRACT SYMP (5) Dehydration Code(s): E86.0 - DEHYDRATION (6) Hyperbilirubinemia Code(s): E80.6 - OTHER DISORDERS OF BILIRUBIN METABOLISM (7) Lactic acid acidosis Code(s): E87.2 - ACIDOSIS (8) Leukocytosis Code(s): D72.829 - ELEVATED WHITE BLOOD CELL COUNT, UNSPECIFIED (9) Prophylactic measure Code(s): Z29.9 - ENCOUNTER FOR PROPHYLACTIC MEASURES, UNSPECIFIED (10) Sepsis secondary to UTI Code(s): A41.9 - SEPSIS, UNSPECIFIED ORGANISM; N39.0 - URINARY TRACT INFECTION, SITE NOT SPECIFIED (11) Syncope and collapse Code(s): R55 - SYNCOPE AND COLLAPSE (12) Carotid stenosis Code(s): I65.29 - OCCLUSION AND STENOSIS OF UNSPECIFIED CAROTID ARTERY (13) Incontinence of urine Code(s): R32 - UNSPECIFIED URINARY INCONTINENCE (14) LFT elevation Code(s): R79.89 - OTHER SPECIFIED ABNORMAL FINDINGS OF BLOOD CHEMISTRY (15) DVT prophylaxis Code(s): Z29.9 - ENCOUNTER FOR PROPHYLACTIC MEASURES, UNSPECIFIED
--- NOTE | 2019-10-20 17:20 | DS ---
Physical Exam: SUBJECTIVE: Patient seen and examined at the bedside. Finished Ela Scan and feels well. Wants to go home today. He denies any palpitations or chest pain. OBJECTIVE: Patient is a 68 y/o male with BPH and hx of nephrolithiasis with hydronephrosis who presents to the ED on 10/11/2019 after a syncopal episode. Pt was febrile and hypotensive with leukocytosis and positive UA. He is admitted for sepsis 2/2 acute cystitis. During hospital stay, patient has been treated with ceftrixone 2 grams for Kleb UTI, however LFTs increased and switched to Cefazolin. Patient was to be sent home on levaquin per ID for 7 more days, however switch to ceftin 500mg bid since patient having frequent PVCs. Patient is now on day 4 of 7 of the Ceftin antibiotics and will be discharged home today. He will complete Ceftin as an outpatient. His liver enzymes are now trending down and his liver panel/hepatitis panel is negative. He will need to monitor his liver enzymes closely as an outpatient. He is currently without PCP and a referral to [facility] has been made. He agrees to call for an appointment. He has been cleared for discharge home today after his LexiScan stress test is negative. Patient can follow up outpatient with mobile sales technician. covid status: negative as 10/11/2019 Vital Signs Period Temp Pulse Resp BP Sys/Castro Pulse Ox Last 24 Hr 97.5 F-98.3 F 46-58 16-20 103-146/54-91 97-100 PHYSICAL EXAM GENERAL: The patient is awake, alert, and fully oriented, in no acute distress. HEAD: Normal with no signs of trauma. EYES: PERRL, extraocular movements intact, sclera anicteric, conjunctiva clear. No ptosis. ENT: Ears normal, nares patent, oropharynx clear without exudates, moist mucous membranes. NECK: Trachea midline, full range of motion, supple. LUNGS: Breath sounds equal, clear to auscultation bilaterally HEART: Regular rate and rhythm ABDOMEN: Soft, nontender, nondistended, normoactive bowel sounds EXTREMITIES: no edema. NEUROLOGICAL: Normal speech, gait steady PSYCH: Normal mood, normal affect. SKIN: Warm, dry, normal turgor, no rashes or lesions noted LABS Laboratory Results - last 24 hr 10/20/19 10/20/19 06:56 06:56 WBC 5.0 RBC 4.74 Hgb 13.8 Hct 41.9 MCV 88.4 MCH 29.1 MCHC 32.9 RDW 14.2 Plt Count 423 MPV 8.0 Absolute Neuts (auto) 3.4 Neutrophils % 68.7 Neutrophils % (Manual) 73.0 D Band Neutrophils % 1.0 Lymphocytes % 21.4 Lymphocytes % (Manual) 19.0 Monocytes % 6.5 Monocytes % (Manual) 2 L D Eosinophils % 2.8 Eosinophils % (Manual) 2.0 D Basophils % 0.6 Basophils % (Manual) 1.0 D Myelocytes % (Man) 0 D Promyelocytes % (Man) 0 Blast Cells % (Manual) 0 Nucleated RBC % 0 Metamyelocytes 2 D Hypochromia 0 Platelet Estimate Normal Polychromasia 0 Poikilocytosis 0 Anisocytosis 0 Microcytosis 0 Macrocytosis 0 Sodium 139 Potassium 4.5 Chloride 111 H Carbon Dioxide 24 Anion Gap 4 L BUN 19.1 H Creatinine 1.1 Est GFR (CKD-EPI)AfAm 78.97 Est GFR (CKD-EPI)NonAf 68.13 Random Glucose 90 Calcium 8.6 Magnesium 2.4 Total Bilirubin 0.4 AST 49 H ALT 93 H Alkaline Phosphatase 106 Total Protein 7.0 Albumin 3.1 L HOSPITAL COURSE: Date of Admission:10/11/19 Date of Discharge: 10/20/19 Minutes to complete discharge: 60 Discharge Summary Problems reviewed: Yes Reason For Visit: SEPSIS Current Active Problems TRISTON (acute kidney injury) (Acute) Abnormal liver function tests (Acute) BPH (benign prostatic hyperplasia) (Acute) Carotid stenosis (Acute) DVT prophylaxis (Acute) Dehydration (Acute) Gram-negative bacteremia (Acute) Hyperbilirubinemia (Acute) Incontinence of urine (Acute) LFT elevation (Acute) Lactic acid acidosis (Acute) Leukocytosis (Acute) PVC's (premature ventricular contractions) (Acute) Prophylactic measure (Acute) Sepsis (Acute) Sepsis secondary to UTI (Acute) Suspected COVID-19 virus infection (Acute) Syncope and collapse (Acute) Condition: Good - Instructions Diet, Activity, Other Instructions: Mr. Paz: You were admitted on 10/11/2019 for a syncope and fall. You were found to have a urinary tract infection and you were treated with IV antibiotics. We will be switching your antibiotics today to an oral form. During your stay you were also noted to have elevated liver enzymes. The liver enzymes have to be closely monitored as an outpatient until they normalize. Here are our discharge instructions: Urinary tract infection: You were treated with IV antibiotics. You will be sent home on Ceftin 500mg TWICE per day. STARTED on 10/17/2019 and to COMPLETE on 10/23/2019. Elevated Liver enzymes: Can be caused by medications. You were seen by a gm video and your lab work (hepatitis panel) is negative. Please call Dr. Browning's office and set up a follow up appointment. so that your liver enzymes can be closely monitored You do not have a primary care doctor at the current time. Please call the [facility] located at [address] [place] [address]. Please let them know that you were just discharged from the hospital. Their phone number is [phone] and they will make a follow up appointment for you. FOLLOW UPS: Please follow up a primary care doctor appointment by calling [facility] on Sunday. [phone]. You will need repeat blood work to make sure your liver enzymes continues to improve. They will be asking you for your insurance information, therefore, please have that ready. Please follow up with the GI specialist (Dr. Browning) for results of your liver tests and to check on your liver enzymes You will need a repeat carotid ultrasound to monitor the small plaques that were seen on the ultrasound. You can follow up with Dr. Coronado in 6 months for another duplex ultrasound. Thank you for allowing us to care for you. Referrals: [facility] [place] [facility] at [place] [Provider Group] - 1 Week ([place] computer system is down. Unable to make an appointment. Call for appt on Sunday) Ana Browning DO [Staff Physician] - Harpreet Guerra MD [Staff Physician] - Disposition: HOME - Home Medications Comprehensive Discharge Medication List: Ambulatory Orders Cefuroxime Axetil [Ceftin -] 500 mg PO BID #7 tablet 10/20/19 Oxybutynin Chloride [Ditropan -] 5 mg PO DAILY #30 tablet 10/20/19 Tamsulosin HCl [Flomax -] 0.4 mg PO DAILY@0830 #30 cap.er.24h 10/20/19 Problem List - Problems (1) PVC's (premature ventricular contractions) Assessment/Plan: resolved. negative stress test. for discharge home, as cardiology has cleared. Code(s): I49.3 - VENTRICULAR PREMATURE DEPOLARIZATION (2) Gram-negative bacteremia Assessment/Plan: bacteremia seconday to source/Kleb in UC and BC x 1 bottle. afebrile, leukocytosis resolved. lactic acidosis resolved on ceftin 500mg BID, to complete at home Code(s): R78.81 - BACTEREMIA (3) TRISTON (acute kidney injury) Assessment/Plan: TRISTON resolved Code(s): N17.9 - ACUTE KIDNEY FAILURE, UNSPECIFIED (4) BPH (benign prostatic hyperplasia) Assessment/Plan: on flomax Code(s): N40.0 - BENIGN PROSTATIC HYPERPLASIA WITHOUT LOWER URINRY TRACT SYMP (5) Dehydration Assessment/Plan: resolved Code(s): E86.0 - DEHYDRATION (6) Hyperbilirubinemia Assessment/Plan: resolved Code(s): E80.6 - OTHER DISORDERS OF BILIRUBIN METABOLISM (7) Lactic acid acidosis Assessment/Plan: resolved Code(s): E87.2 - ACIDOSIS (8) Leukocytosis Assessment/Plan: resolved Code(s): D72.829 - ELEVATED WHITE BLOOD CELL COUNT, UNSPECIFIED (9) Prophylactic measure Code(s): Z29.9 - ENCOUNTER FOR PROPHYLACTIC MEASURES, UNSPECIFIED (10) Sepsis secondary to UTI Assessment/Plan: + kleb in urine. ID following patient to be discharged home on ceftin 500mg bid Code(s): A41.9 - SEPSIS, UNSPECIFIED ORGANISM; N39.0 - URINARY TRACT INFECTION, SITE NOT SPECIFIED (11) Syncope and collapse Assessment/Plan: resolved. Code(s): R55 - SYNCOPE AND COLLAPSE (12) Carotid stenosis Assessment/Plan: syncopal episode with near collapse. small to moderate plaque to RCA had neck CTA, per vascular, can follow up outpatient. Code(s): I65.29 - OCCLUSION AND STENOSIS OF UNSPECIFIED CAROTID ARTERY (13) Incontinence of urine Assessment/Plan: c/o incontinence/urgency on flomax Code(s): R32 - UNSPECIFIED URINARY INCONTINENCE (14) LFT elevation Assessment/Plan: LfTs mproving. liver u/s shows fatty infiltration of liver vs. hepatocellular disease follow up with GI outpatient Code(s): R79.89 - OTHER SPECIFIED ABNORMAL FINDINGS OF BLOOD CHEMISTRY (15) DVT prophylaxis Code(s): Z29.9 - ENCOUNTER FOR PROPHYLACTIC MEASURES, UNSPECIFIED This patient is new to me today: No Emergency Visit: Yes ED Registration Date: 10/11/19 Care time: The patient presented to the Emergency Department on the above date and was hospitalized for further evaluation of their emergent condition. Critical Care patient: No - Discharge Referral Referred to [facility] Med [facility].C[facility] No
[2019-10-20 18:38] VITALS: BP 124/69; PULSE 54; TEMP 98.4
== END 2019-10-20 19:27 | disposition home or self-care (01) | DRG 872 ==
LOC: JER 20:56 → JERBED 10-11 00:12 → J4S 10-11 03:52
PROVIDERS: ADMIT Internal Medicine; ATTEND Nurse Practitioner Family
DX: A41.59 Other Gram-negative sepsis (principal); N17.9 Acute kidney failure, unspecified; E87.2 Acidosis; N13.6 Pyonephrosis; N40.1 Benign prostatic hyperplasia with lower urinary tract symptoms; R55 Syncope and collapse; D72.829 Elevated white blood cell count, unspecified; I65.29 Occlusion and stenosis of unspecified carotid artery; R32 Unspecified urinary incontinence; I49.3 Ventricular premature depolarization; E80.6 Other disorders of bilirubin metabolism; I95.9 Hypotension, unspecified; E86.0 Dehydration; R94.5 Abnormal results of liver function studies; E66.3 Overweight; Z68.29 Body mass index [BMI] 29.0-29.9, adult
CPT/HCPCS: 36415; 70450-TC; 70498-TC; 71045-TC-FY; 76705-TC; 76775-TC; 78452-TC; 80048; 80053; 80061; 80076; 81003; 82550; 82553; 82565; 83036; 83605; 83721; 83735; 83935; 84100; 84300; 84439; 84443; 84484; 85025; 85027; 85610; 86704; 86706; 86707; 86708; 86709; 86803; 87040; 87086; 87186; 87340; 90670; 93005; 93010; 93017; 93306-TC; 93880-TC; 97116-GP; 97161-GP; 99285-25; A9502; J1644; J2785; Q9967; U0003

== ENCOUNTER 2019-11-12 14:31 | Emergency (ER) | payer OTHER ==
[2019-11-12 14:51] VITALS: TEMP 98.2; BMI 25.7
--- NOTE | 2019-11-12 16:12 | PDOC ---
History of Present Illness - General Chief Complaint: Urinary Problem Stated Complaint: URINARY PROBLEM Time Seen by Provider: 11/12/19 16:11 - History of Present Illness Initial Comments: HPI Pt is a 68yo M with PMH BPH, nephrolithiasis w/hydronephrosis who presents with 1 day of dysuria and increased frequency. Pt was recently hospitalized for sepsis 2/2 acute cystitis, discharged with cefuroxime, finished on 10/23. States that he has burning with urination. Denies fevers, chills, chest pain, lighth eadedness, penile discharge, groin swelling, rectal pain, hematuria. PCP: ilya ghotra PMH: see above PSH: denies Meds: oxybutynin, tamsulosin Allergies: NKDA Social: denies GINGER Review of Systems CONSTITUTIONAL:denies fever, chills, generalized weakness, malaise, loss of appetite HEENT:denies rhinorrhea, nasal congestion, sore throat CARDIOVASCULAR:denies chest pain, syncope, palpitations, irregular heart rate, lightheadedness, peripheral edema RESPIRATORY:denies cough, shortness of breath GASTROINTESTINAL: denies abdominal pain, nausea, vomiting, diarrhea, co nstipation, melena, hematochezia GENITOURINARY:see HPI MUSCULOSKELETAL:denies myalgia, arthralgia HEMATOLOGIC/IMMUNOLOGIC:denies easy bleeding, easy bruising ENDOCRINE: denies unexplained weight gain, unexplained weight loss NEUROLOGIC:denies headache, loss of consciousness, focal weakness or pa resthesias, dizziness, mental status changes, bladder or bowel incontinence SKIN:denies rash, itching, pallor Physical Exam General: awake, alert, fully oriented, in no acute distress, well developed, well nourished Head: normocephalic, atraumatic Eyes: PERRL, EOMI, anicteric sclera, conjunctiva clear ENT: Auricles normal inspection, hearing grossly normal, TMs clear bilaterally, nares patent, oropharynx clear without exudates, no nasal congestion, moist mucous membranes Neck: supple, normal ROM Lung: equal breath sounds b/l, CTA b/l, no crackles, wheezes; no distress, speaks full sentences Heart: RRR, normal S1, S2, no murmurs appreciated Abdomen: soft, non tender, normoactive bowel sounds, no guarding, rebound, masses; no CVA tenderness Extremities: normal ROM, no edema, no erythema or tenderness, DP/PT pulses 2+ and symmetric Neuro: CN2-12 grossly intact, moves all extremities, normal speech, normal gait, sensation intact Skin: warm, dry, no rashes or lesions noted MDM Pt is a 68yo M with PMH BPH, nephrolithiasis w/hydronephrosis who presents with 1 day of dysuria and increased frequency. DDx including but not limited to: UTI, pyelonephritis, nephrolithiasis Workup: labs, UA EKG: sinus rhythm with PAC, HR 65bpm, UT 172ms, QRS 100ms, QTc 407ms, TWI in III, AVR, V1, as seen in previous EKG from 09/2019 ED course labs: no leukocytosis, no anemia, electrolytes WNL, LFTs WNL UA: 3+blood, 3+LE, 2+ protein, bacteriuria - Will give 1g Rocephin Re-assessment: Patient stable for discharge. Tolerating PO, pain controlled. Informed of all lab and imaging results. Given follow up instructions and strict return precautions. Patient expressed understanding and agree to plan Disposition: Discharge Past History - Medical History Allergies/Adverse Reactions: Allergies Allergy/AdvReac Type Severity Reaction Status Date / Time No Known Allergies Allergy Verified 11/12/19 14:47 Home Medications: Ambulatory Orders Cefuroxime Axetil [Ceftin -] 500 mg PO BID #7 tablet 10/20/19 Oxybutynin Chloride [Ditropan -] 5 mg PO DAILY #30 tablet 10/20/19 Tamsulosin HCl [Flomax -] 0.4 mg PO DAILY@0830 #30 cap.er.24h 10/20/19 Cefdinir [Omnicef -] 300 mg PO BID #20 capsule 11/12/19 Ibuprofen [Motrin -] 600 mg PO TID PRN #15 tablet 11/13/19 Phenazopyridine HCl [Pyridium] 100 mg PO TID PRN #6 tablet 11/13/19 Tamsulosin HCl [Flomax] 0.4 mg PO DAILY #7 cap.er.24h 11/13/19 Anemia: No Asthma: No Cancer: No Cardiac Disorders: No CVA: No COPD: No CHF: No Dementia: No Diabetes: No GI Disorders: No Disorders: Yes (BPH) HTN: No Hypercholesterolemia: No Liver Disease: No Seizures: No Thyroid Disease: No - Surgical History Abdominal Surgery: No Appendectomy: No Cardiac Surgery: No Cholecystectomy: No Lung Surgery: No Neurologic Surgery: No Orthopedic Surgery: No - Immunization History Immunization Up to Date: No - Psycho-Social/Smoking History Smoking History: Never smoked Have you smoked in the past 12 months: No Information on smoking cessation initiated: No - Substance Abuse Hx (Audit-C & DAST Scrn) How often the patient has a drink containing alcohol: Never Score: In Men: 4 or > Positive; In Women: 3 or > Positive: 0 Screen Result (Pos requires Nsg. Audit-10AR): Negative In the last yr the pt used illegal drug/Rx for NonMed reason: No Score: Yes response is considered Positive: 0 Screen Result (Positive result requires Nsg. DAST-10): Negative *Physical Exam - Vital Signs Last Vital Signs Temp Pulse Resp BP Pulse Ox 98.2 F 53 L 17 127/67 95 11/12/19 14:47 11/12/19 14:47 11/12/19 14:47 11/12/19 14:47 11/12/19 14:47 ED Treatment Course - LABORATORY CBC & Chemistry Diagram: 11/12/19 17:15 11/12/19 17:15 Discharge - Discharge Information Problems reviewed: Yes Clinical Impression/Diagnosis: Urinary tract infection Qualifiers: Urinary tract infection type: acute cystitis Hematuria presence: with hematuria Qualified Code(s): N30.01 - Acute cystitis with hematuria Condition: Stable Disposition: HOME - Admission No - Additional Discharge Information Prescriptions: Cefdinir [Omnicef -] 300 mg PO BID #20 capsule - Follow up/Referral Referrals: [facility] [place] [facility] [place] [Provider Group] Maximo Bass MD [Staff Physician] - Bakari Lius MD [Staff Physician] - - Patient Discharge Instructions Patient Printed Discharge Instructions: DI for Urinary Tract Infection (UTI) Additional Instructions: You came into the ER burning with urination. In the ED, you were evaluated with blood work and urinalysis. Your urinalysis indicates that you have a urine infection. The blood tests are normal. You do not appear to be an acute need for immediate hospitalization You were advised to follow up with your primary care doctor within 1 week. You were given a referral to urologist (kidney, bladder doctor). Call TOMORROW to schedule appointment You were given a prescription for cefdinir. Take this medication two times a day for 10 days. It was sent to [facility] on [address] . Please stay well hydrated; drink plenty of fluids. Come back to the ER immediately with any new or worsening concerns, such as high fevers, chills, persistent and severe vomiting, if you stop urinating or notice blood in your urine. Thank you for coming to the [facility] ER. We hope you feel better soon! - Post Discharge Activity
[2019-11-12 17:23] LABS: EPI CELLS 5 /uL (0-25.1); HYALINE CASTS 4 /uL (0-3.1); PH,URINE 5.5 (5.0-8.0); URINE APPEARANCE TURBID; URINE BACTERIA >9,000 /uL (0-1359); URINE BILIRUBIN NEGATIVE (NEGATIVE); URINE COLOR YELLOW; URINE GLUCOSE (UA) NEGATIVE (NEGATIVE); URINE KETONE NEGATIVE (NEGATIVE); URINE LEUK ESTERASE 3+ (NEGATIVE); URINE NITRITE NEGATIVE (NEGATIVE); URINE PROTEIN 2+ (NEGATIVE); URINE RBC 302 /uL (0-23.9); URINE UROBILINOGEN 0.2 mg/dL (0.2-1.0); URINE WBC 13728 /uL (0-25.8)
[2019-11-12] MEDS ORDERED: CEFTRIAXONE 1 GM in DEXTROSE 5%-WATER - 50 ML IVPB ONE (17:47)
--- NOTE | 2019-11-12 17:49 | PDOC ---
Documentation entered by Armaan Daugherty SCRIBE, acting as scribe for Briana Villeda DO. Briana Villeda, DO: This documentation has been prepared by the Dat hebert Angel, SCRIBE, under my direction and personally reviewed by me in its entirety. I confirm that the documentation accurately reflects all work, treatment, procedures, and medical decision making performed by me. Attending Attestation - Resident Resident Name: Kiara Manzo - ED Attending Attestation I have performed the following: I have examined & evaluated the patient, The case was reviewed & discussed with the resident, I agree w/resident's findings & plan, Exceptions are as noted - HPI HPI: 11/12/19 18:01 The patient is a 68 year old male with a significant past medical history of BPH, nephrolithiasis w/hydronephrosis who presents to the ED with one day of dysuria. The patient endorses burning on urination as well as increased frequency. The patient notes suprapubic discomfort. The patient was recently hospitalized for sepsis and discharged with cefuroxime which he finished on the 23 of October. The patient denies fever/chills, lightheadedness, chest pain or any other complaints. - Physicial Exam PE: 11/12/19 17:47 Gen: AAOx3, nad heent: EOMI, poor dentition, mmm heart: +s1s2 reg lungs: cta b/l abd: soft, nd, +bs, suprapubic ttp, no cva ttp ext: no c/c/e - Medical Decision Making 11/12/19 17:47 a/p: 68yo male with 1 day of dysuria -had uti with sepsis last month -treated with 2nd generation cephalosporin -will send labs, ua, ucx pending -ua + uti, will give rocephin in the ER and then oral abx for dc if labs normal -will monitor and reassess -pt is nontoxic in appearance 11/12/19 18:21 no elevated wbc or shift 11/12/19 18:42 cr normal labs reviewed pt is nontoxic in appearance no systemic signs/symptoms of infection pt with uti, will place on oral abx and follow up with urology Discharge - Discharge Information Problems reviewed: Yes Clinical Impression/Diagnosis: Urinary tract infection Qualifiers: Urinary tract infection type: site unspecified Hematuria presence: with hematuria Qualified Code(s): N39.0 - Urinary tract infection, site not specified Condition: Stable Disposition: HOME - Admission No - Additional Discharge Information Prescriptions: Cefdinir [Omnicef -] 300 mg PO BID #20 capsule - Follow up/Referral [place] [facility] [place] [facility] [place] [Provider Group] Bakari Luis MD [Staff Physician] - Maximo Bass MD [Staff Physician] - - Patient Discharge Instructions Patient Printed Discharge Instructions: DI for Urinary Tract Infection (UTI) Additional Instructions: You came into the ER burning with urination. In the ED, you were evaluated with blood work and urinalysis. Your urinalysis indicates that you have a urine infection. The blood tests are normal. You do not appear to be an acute need for immediate hospitalization You were advised to follow up with your primary care doctor within 1 week. You were given a referral to urologist (kidney, bladder doctor). Call TOMORROW to schedule appointment You were given a prescription for cefdinir. Take this medication two times a day for 10 days. It was sent to [facility] on . Please stay well hydrated; drink plenty of fluids. Come back to the ER immediately with any new or worsening concerns, such as high fevers, chills, persistent and severe vomiting, if you stop urinating or notice blood in your urine. Thank you for coming to the [facility] ER. We hope you feel better soon! - Post Discharge Activity
[2019-11-12 17:53] LABS: BASO % 0.6 % (0-2.0); EOS % 1.8 % (0-4.5); HEMATOCRIT 45.4 % (35.4-49); HEMOGLOBIN 14.8 GM/dL (11.7-16.9); LYMPH % 17.8 % (8-40); MCH 28.6 pg (25.7-33.7); MCHC 32.6 g/dl (32.0-35.9); MEAN CELL VOLUME 87.7 fl (80-96); MONO % 6.6 % (3.8-10.2); NEUT % 73.2 % (42.8-82.8); PLATELET COUNT 237 K/MM3 (134-434); RBC 5.18 M/mm3 (4.00-5.60); RDW 14.2 % (11.9-15.9); WHITE BLOOD COUNT 7.4 K/mm3 (4.0-10.0)
[2019-11-12 18:23] LABS: ALBUMIN 3.8 g/dl (3.4-5.0); BILIRUBIN,TOTAL 0.3 mg/dL (0.2-1); BLOOD UREA NITROGEN 19.2 mg/dL (7-18); CALCIUM 9.4 mg/dL (8.5-10.1); CREATININE 1.1 mg/dL (0.55-1.3); POTASSIUM 4.4 mmol/L (3.5-5.1); TOT PROT 7.9 g/dl (6.4-8.2)
[2019-11-12] MEDS ORDERED: CEFTRIAXONE 1 GM/50 ML BAG ONE (18:27)
[2019-11-12 19:01] VITALS: BP 162/89; PULSE 55
== END 2019-11-12 19:09 | disposition home or self-care (01) ==
LOC: JER 14:31
DX: N39.0 Urinary tract infection, site not specified (principal); R31.9 Hematuria, unspecified
CPT/HCPCS: 36415; 80053; 81003; 85025; 87086; 87186; 99284-25

== ENCOUNTER 2019-11-12 23:09 | Emergency (ER) | payer OTHER ==
[2019-11-12 23:18] VITALS: BP 136/85; PULSE 82; TEMP 98.6; BMI 25.7
[2019-11-12] MEDS ORDERED: IBUPROFEN 600 MG TABLET (FP) PO ONE ×2 (23:43→23:52)
[2019-11-12] MEDS ORDERED: PHENAZOPYRIDINE HCL 100 MG TABLET (FP) PO ONE (23:43)
--- NOTE | 2019-11-12 23:46 | PDOC ---
History of Present Illness - General Chief Complaint: Urinary Problem Stated Complaint: PAIN Time Seen by Provider: 11/12/19 23:39 History Source: Patient Exam Limitations: No Limitations - History of Present Illness Initial Comments: 11/12/19 23:46 68yM w PMHx BPH, nephrolithiasis w/hydronephrosis who presents with 1 day of intermittent mild suprapubic pain, dysuria and increased frequency. Pt was diagnosed earlier today by Dr Manzo with acute cystitis, DC w cefdinir. Pt could not get medication from closed pharmacy, refuses to have meds re-prescribed to a 24hr pharmacy. Did not take any meds at home for pain. Denies fevers, chills, penile discharge, groin swelling, hematuria Past History - Medical History Allergies/Adverse Reactions: Allergies Allergy/AdvReac Type Severity Reaction Status Date / Time No Known Allergies Allergy Verified 11/12/19 14:47 Home Medications: Ambulatory Orders Cefuroxime Axetil [Ceftin -] 500 mg PO BID #7 tablet 10/20/19 Oxybutynin Chloride [Ditropan -] 5 mg PO DAILY #30 tablet 10/20/19 Tamsulosin HCl [Flomax -] 0.4 mg PO DAILY@0830 #30 cap.er.24h 10/20/19 Cefdinir [Omnicef -] 300 mg PO BID #20 capsule 11/12/19 Ibuprofen [Motrin -] 600 mg PO TID PRN #15 tablet 11/13/19 Phenazopyridine HCl [Pyridium] 100 mg PO TID PRN #6 tablet 11/13/19 Tamsulosin HCl [Flomax] 0.4 mg PO DAILY #7 cap.er.24h 11/13/19 Anemia: No Asthma: No Cancer: No Cardiac Disorders: No CVA: No COPD: No CHF: No Dementia: No Diabetes: No GI Disorders: No Disorders: Yes (BPH) HTN: No Hypercholesterolemia: No Liver Disease: No Seizures: No Thyroid Disease: No - Surgical History Abdominal Surgery: No Appendectomy: No Cardiac Surgery: No Cholecystectomy: No Lung Surgery: No Neurologic Surgery: No Orthopedic Surgery: No - Immunization History Immunization Up to Date: No - Psycho-Social/Smoking History Smoking History: Never smoked Have you smoked in the past 12 months: No - Substance Abuse Hx (Audit-C & DAST Scrn) How often the patient has a drink containing alcohol: Never Score: In Men: 4 or > Positive; In Women: 3 or > Positive: 0 Screen Result (Pos requires Nsg. Audit-10AR): Negative In the last yr the pt used illegal drug/Rx for NonMed reason: No Score: Yes response is considered Positive: 0 Screen Result (Positive result requires Nsg. DAST-10): Negative Review of Systems - Review of Systems Constitutional: No: Chills, Fever HEENTM: No: Eye Pain, Ear Discharge Respiratory: No: Cough, Shortness of Breath Cardiac (ROS): No: Chest Pain, Lightheadedness ABD/GI: No: Nausea, Vomiting : Yes: Burning. No: Discharge Musculoskeletal: No: Back Pain, Joint Pain Integumentary: No: Bruising, Dryness Neurological: No: Headache, Seizure Psychiatric: No: Anxiety, Depression Endocrine: No: Intolerance to Cold, Intolerance to Heat Hematologic/Lymphatic: No: Anemia, Blood Clots *Physical Exam - Vital Signs Last Vital Signs Temp Pulse Resp BP Pulse Ox 98.6 F 82 19 136/85 96 11/12/19 23:12 11/12/19 23:12 11/12/19 23:12 11/12/19 23:12 11/12/19 23:12 - Physical Exam General Appearance: Yes: Nourished, Appropriately Dressed, Mild Distress HEENT: positive: EOMI, COLEEN, Normal Voice, Hearing Grossly Normal. negative: Scleral Icterus (R), Scleral Icterus (L) Respiratory/Chest: positive: Lungs Clear, Normal Breath Sounds. negative: Chest Tender, Respiratory Distress Cardiovascular: positive: Regular Rhythm, Regular Rate, S1, S2. negative: Murmur Gastrointestinal/Abdominal: positive: Normal Bowel Sounds, Tender (mild suprapubic), Flat, Soft. negative: Organomegaly Male Genitalia: positive: normal genitalia. negative: discharge, testicular tenderness, testicular mass, epididymus tender, hernia, hematuria Musculoskeletal: negative: CVA Tenderness (R), CVA Tenderness (L) Integumentary: positive: Normal Color, Warm Neurologic: positive: Fully Oriented, Alert, Normal Mood/Affect, Normal Response, Responsive Medical Decision Making - Medical Decision Making 11/13/19 00:06 EKG - sinus rhythm w PAC, HR 65, QTc 407, no ST changes CXR - clear lung monzon --- 68yM w PMHx BPH, nephrolithiasis w/hydronephrosis who presents with 1 day of intermittent mild suprapubic pain, dysuria and increased frequency. Infected nephrolithiasis. 5.4mm distal R ureteral stone at R ureterovesicular junction. No TRISTON. Given pyridium, ibuprofen. Received rocephin earlier. Consulted document control associate Dr Pearson urology - advised DC w f/u tomorrow DC home w pyridium, ibuprofen, cefdinir, flomax urology f/u Discharge - Discharge Information Problems reviewed: Yes Clinical Impression/Diagnosis: Renal stone Urinary tract infection Qualifiers: Urinary tract infection type: acute cystitis Hematuria presence: with hematuria Qualified Code(s): N30.01 - Acute cystitis with hematuria Condition: Improved Disposition: HOME - Additional Discharge Information Prescriptions: Tamsulosin HCl [Flomax] 0.4 mg PO DAILY #7 cap.er.24h Ibuprofen [Motrin -] 600 mg PO TID PRN #15 tablet PRN Reason: Pain Phenazopyridine HCl [Pyridium] 100 mg PO TID PRN #6 tablet PRN Reason: Pain - Follow up/Referral Referrals: Marcelo Aguiar MD., MD [Staff Physician] - - Patient Discharge Instructions Patient Printed Discharge Instructions: DI for Kidney Stones Additional Instructions: You have an infected right kidney stone Take the prescribed Pyridium if you have burning Take the prescribed Motrin if you have pain Take the prescribed Cefdinir and Flomax as directed Please follow up with the referred urologist Dr Pearson tomorrow - Post Discharge Activity
[2019-11-12] MEDS ORDERED: PHENAZOPYRIDINE HCL 100 MG TABLET (FP) ONE (23:52)
--- NOTE | 2019-11-12 23:57 | PDOC ---
Documentation entered by Armaan Daugherty SCRIBE, acting as scribe for Briana Villeda DO. Briana Villeda DO: This documentation has been prepared by the Dat hebert Angel, SCRIBE, under my direction and personally reviewed by me in its entirety. I confirm that the documentation accurately reflects all work, treatment, procedures, and medical decision making performed by me. Attending Attestation - Resident Resident Name: QuentinÁngel - ED Attending Attestation I have performed the following: I have examined & evaluated the patient, The case was reviewed & discussed with the resident, I agree w/resident's findings & plan, Exceptions are as noted - HPI HPI: 11/12/19 23:48 The patient is a 68 year old male with a significant past medical history of BPH, nephrolithiasis w/hydronephrosis who presents to the ED with dysuria and SOB starting today. The patient was recently here in the ED today for suprapubic discomfort and dysuria and was discharged with prescriptions sent to his pharmacy. The patient comes back in because he cannot sleep and was unable to peanut picker his medications. The patient states he feels a burning sensation when he urinates and states he began experiencing SOB on his way to the ED. The patient was recently hospitalized for sepsis and discharged with cefuroxime which he finished on the 23 of October. The patient denies fever/chills, lightheadedness, or chest pain. - Physicial Exam PE: 11/12/19 23:53 Gen: aaox3, nad heart: +s1s2 reg lungs: cta b/l abd: soft, nd, +suprapubic ttp, no cva ttp ext: no c/c/e - Medical Decision Making 11/12/19 23:54 a/p: 68yo male seen earlier tonight for a UTI returns for eval of dysuria -pt states he did not peanut picker his abx and did not take anything for pain at home -pt states he did not have accesss to tylenol or motrin at home -states he is urinating freq -pt denies fevers -states he felt sob on the way back to the ER -denies cough -denies cp -denies n/v/d -pt states he needs something for pain -no cva ttp -no penile discharge or pain -will send for xray and ekg for sob, pt with normal rr and pulse ox -will treat with pyridium and motrin -will monitor and reassess 11/13/19 01:20 ct shows a 5.4 stone at the R UVJ, no hydro pt with an infected stone will call urology 11/13/19 01:21 cxr clear 11/13/19 01:25 pt updated, states pain is improved discussed ct findings pending urology discussion 11/13/19 01:36 resident discussed the case with urology, Dr. Aguiar who recommends the patient come to the office tomorrow for uro eval Heart Score/ECG Review - ECG Intrepretation Comment:: 11/13/19 00:29 sinus at 65, pac, nl axis, no acute st/t wave findings Discharge - Discharge Information Problems reviewed: Yes Clinical Impression/Diagnosis: Renal stone Urinary tract infection Qualifiers: Urinary tract infection type: acute cystitis Hematuria presence: with hematuria Qualified Code(s): N30.01 - Acute cystitis with hematuria Condition: Improved Disposition: HOME - Admission No - Additional Discharge Information Prescriptions: Tamsulosin HCl [Flomax] 0.4 mg PO DAILY #7 cap.er.24h Ibuprofen [Motrin -] 600 mg PO TID PRN #15 tablet PRN Reason: Pain Phenazopyridine HCl [Pyridium] 100 mg PO TID PRN #6 tablet PRN Reason: Pain - Follow up/Referral Referrals: Marcelo Aguiar MD., MD [Staff Physician] - - Patient Discharge Instructions Patient Printed Discharge Instructions: DI for Kidney Stones Additional Instructions: You have an infected - Post Discharge Activity
[2019-11-13] MEDS ORDERED: TAMSULOSIN HCL 0.4 MG CAP PO ONE (01:25)
[2019-11-13] MEDS ORDERED: TAMSULOSIN HCL 0.4 MG CAP ONE (01:50)
--- NOTE | 2019-11-13 15:27 | EKG ---
Test Reason : Blood Pressure : / mmHG Vent. Rate : 065 BPM Atrial Rate : 065 BPM P-R Int : 172 ms QRS Dur : 100 ms QT Int : 392 ms P-R-T Axes : -03 -22 011 degrees QTc Int : 407 ms SINUS RHYTHM WITH PREMATURE ATRIAL COMPLEXES NONSPECIFIC T WAVE ABNORMALITY ABNORMAL ECG WHEN COMPARED WITH ECG OF 10-OCT-2019 22:54, PREMATURE ATRIAL COMPLEXES ARE NOW PRESENT Confirmed by HUMZA BROOKS MD ([id number]) on 11/13/2019 3:27:27 PM Referred By: Confirmed By:HUMZA BROOKS MD
== END 2019-11-13 01:59 | disposition home or self-care (01) ==
LOC: JER 23:09
DX: N30.01 Acute cystitis with hematuria (principal); N20.0 Calculus of kidney
CPT/HCPCS: 36415; 71046-TC-FY; 74176-TC; 80053; 81003; 85025; 87086; 87186; 93005; 93010; 99285-25

== ENCOUNTER 2023-08-30 07:57 | Emergency (ER) | payer OTHER ==
[2023-08-30 08:19] VITALS: RESP 18; BMI 27.3
[2023-08-30 09:34] LABS: PH,URINE 6.5 (5.0-8.0); URINE APPEARANCE Clear; URINE BILIRUBIN Negative (NEGATIVE); URINE COLOR Yellow; URINE GLUCOSE (UA) Negative (NEGATIVE); URINE KETONE Trace (NEGATIVE); URINE LEUK ESTERASE Negative (NEGATIVE); URINE NITRITE Negative (NEGATIVE); URINE PROTEIN Negative (NEGATIVE); URINE UROBILINOGEN 0.2 mg/dL (0.2-1.0)
[2023-08-30 09:35] LABS: EPI CELLS 1 /uL (0-25.1); HYALINE CASTS 0 /uL (0-3.1); URINE BACTERIA 4 /uL (0-1359); URINE RBC 1 /uL (0-23.9); URINE WBC 2 /uL (0-25.8)
[2023-08-30 10:48] VITALS: BP 158/92; PULSE 84; TEMP 97.6
== END 2023-08-30 10:48 | disposition home or self-care (01) ==
LOC: JER 07:57
DX: M54.50 Low back pain, unspecified (principal); R00.1 Bradycardia, unspecified; X50.1XXA Overexertion from prolonged static or awkward postures, initial encounter
CPT/HCPCS: 72100-TC-FY; 81003; 87086; 93005; 93010; 99285-25